=== PATIENT | female | born 1940 | race Caucasian/White ===

== ENCOUNTER → 2018-04-18 05:00 | Outpatient (REF) | payer MEDICARE, OTHER, SELFPAY ==
[2018-04-18 09:06] LABS: Prothrombin Time Fingerstick 19.5 SEC (11.9-14.4)
== END ==
LOC: OLS.ACH 05:00
PROVIDERS: Visit Provider Family Medicine
DX: I82.409 Acute embolism and thrombosis of unspecified deep veins of unspecified lower extremity (principal)
CPT/HCPCS: 36416; 85610

== ENCOUNTER → 2018-05-02 05:00 | Outpatient (REF) | payer MEDICARE, SELFPAY ==
[2018-05-02 08:45] LABS: Prothrombin Time Fingerstick 18.4 SEC (11.9-14.4)
== END ==
LOC: OLS.ACH 05:00
PROVIDERS: Visit Provider Family Medicine
DX: I10 Essential (primary) hypertension (principal)
CPT/HCPCS: 36416; 85610

== ENCOUNTER → 2018-05-09 05:00 | Outpatient (REF) | payer MEDICARE, OTHER, SELFPAY ==
[2018-05-09 08:25] LABS: International Normalized Ratio 1.6; Prothrombin Time (Protime)PT. 19.5 SECONDS (11.7-14.9)
[2018-05-09 08:37] LABS: Thyroid Stim Hormone (TSH) 4.91 uIU/mL (0.358-3.74)
== END ==
LOC: OLS.ACH 05:00
PROVIDERS: Visit Provider Family Medicine
DX: I48.91 Unspecified atrial fibrillation (principal); F20.9 Schizophrenia, unspecified
CPT/HCPCS: 36415; 84443; 85610

== ENCOUNTER → 2018-05-21 04:30 | Outpatient (REF) | payer MEDICARE, SELFPAY | LOC: OLS.ACH 04:30 | PROVIDERS: Visit Provider Family Medicine | DX: I48.91 Unspecified atrial fibrillation (principal) | CPT/HCPCS: 36416; 85610 ==

== ENCOUNTER → 2018-05-28 05:00 | Outpatient (REF) | payer MEDICARE, SELFPAY ==
[2018-05-28 07:10] LABS: Prothrombin Time Fingerstick 31.4 SEC (11.9-14.4)
== END ==
LOC: OLS.ACH 05:00
PROVIDERS: Visit Provider Family Medicine
DX: I48.91 Unspecified atrial fibrillation (principal)
CPT/HCPCS: 36416; 85610

== ENCOUNTER → 2018-06-13 05:00 | Outpatient (REF) | payer MEDICARE, OTHER, SELFPAY ==
[2018-06-13 09:12] LABS: BNP,B-Type NATRIURETIC PEPTIDE 25.1 pg/mL (0-100)
[2018-06-13 09:22] LABS: Anion Gap 4 (5-15); BUN 35 mg/dL (7-18); BUN/Creat Ratio 40.2 RATIO (10-20); Calcium,Total 9.7 mg/dL (8.5-10.1); Chloride 106 mmol/L (98-107); Creatinine, Serum 0.87 mg/dL (0.55-1.02); EST Glomerular Filtration Rate 67 mL/min (>60); Est Glom Filt Rate - Afr Amer 81 mL/min (>60); Glucose 95 mg/dL (74-106); Potassium 3.8 mmol/L (3.5-5.1); Sodium Level 144 mmol/L (136-145); Thyroid Stim Hormone (TSH) 1.62 uIU/mL (0.358-3.74)
== END ==
LOC: OLS.ACH 05:00
PROVIDERS: Visit Provider Family Medicine
DX: I48.91 Unspecified atrial fibrillation (principal); R06.02 Shortness of breath
CPT/HCPCS: 36415; 80048; 83880; 84443

== ENCOUNTER → 2018-06-25 05:00 | Outpatient (REF) | payer MEDICARE, SELFPAY ==
[2018-06-25 10:20] LABS: Prothrombin Time Fingerstick 27.8 SEC (11.9-14.4)
--- OUTSIDE RECORDS SUMMARY | 2018-09-26 15:43 | XMS RPT_ITS ---
:1940 Author Organization OHIP Support Name Relationship Address Phone Osiris Coates Unavailable [address] + [place] [address] R Unavailable Unavailable Unavailable Addy Coateslie Unavailable [address] + [place] [address] R Unavailable Unavailable Unavailable Osiris Coates Unavailable [address] + [place] [address] R Unavailable Unavailable Unavailable Osiris Coates Unavailable [address] + [place] [address] R Unavailable Unavailable Unavailable Osiris Coates Unavailable [address] + [place] [address] R Unavailable Unavailable Unavailable JaxonOsiris Unavailable [address] + [place] [address] R Unavailable Unavailable Unavailable Osiris Coates Unavailable [address] + [place] [address] R Unavailable Unavailable Unavailable Osiris Coates Unavailable [address] + [place] [address] R Unavailable Unavailable Unavailable Osiris Coates Unavailable [address] + [place] [address] R Unavailable Unavailable Unavailable Osiris Coates Unavailable [address] + [place] [address] R Unavailable Unavailable Unavailable Osiris Coates Unavailable [address] + [place] [address] R Unavailable Unavailable Unavailable Osiris Coates Unavailable [address] + [place] [address] R Unavailable Unavailable Unavailable Osiris Coates Unavailable [address] + [place] [address] R Unavailable Unavailable Unavailable Osiris Coates Unavailable [address] + [place] [address] R Unavailable Unavailable Unavailable Osiris Coates Unavailable [address] + [place] [address] R Unavailable Unavailable Unavailable Osiris Coates Unavailable [address] + [place] [address] R Unavailable Unavailable Unavailable OSIRIS COATES Unavailable [address] + [place] [address] OSIRIS COATES Unavailable [address] + [place] [id number] OSIRIS COATES Unavailable [address] + [place] [id number] OSIRIS COATES Unavailable [address] + [place] [address] Care Team Providers Name Role Phone GERMANIA FREEMAN, SARAHY Sanchez JR. Primary Care Unavailable JT SALES MD Admitting Unavailable NERIS LANE MD Consulting Unavailable YAO FREEMAN, ANABELLA Attending Unavailable NORMA GONCALVES MD Consulting Unavailable NAZIA CHIN MD Consulting Unavailable BOBBY MIKE, DR. MENCHACA Consulting Unavailable CLARENCE FORBES MD Consulting Unavailable OCTAVIANO BENJAMIN MD Consulting Unavailable GERMANIA FREEMAN, SARAHY Sanchez JR. Primary Care Unavailable KIKO MIKE MD. PIERRE Sanchez Admitting Unavailable KIKO MIKE MD. PIERRE Sanchez Consulting Unavailable KIKO MIKE MD. PIERRE Sanchez Attending Unavailable NORMA GONCALVES MD Consulting Unavailable Petrilla, Saji Attending Unavailable Petrilla, Saji Attending Unavailable Petrilla, Saji Attending Unavailable Petrilla, Saji Attending Unavailable Petrilla, Saji Attending Unavailable Petrilla, Saji Attending Unavailable Petrilla, Saji Attending Unavailable Petrilla, Saji Attending Unavailable Petrilla, Saji Attending Unavailable Petrilla, Saji Attending Unavailable Petrilla, Saji Attending Unavailable [facility] Attending Unavailable Petrilla, Saji Attending Unavailable Petrilla, Saji Attending Unavailable Petrilla, Saji Attending Unavailable Petrilla, Saji Attending Unavailable PROBLEMS PROBLEMS DATE TYPE CONDITION / CODE ATTENDING STATUS SOURCE 08/01/2018 Unknown I48.91 - Petrilla, Active Carla Unspecified atrial [facility] fibrillation / Hospital I48.91(ICD-10) Repository 08/01/2018 Unknown R06.02 - Shortness Leidya, Active Kelley of breath / [facility] R06.02(ICD-10) Hospital Repository 06/01/2018 Unknown F20.9 - Petrilla, Active Carla Schizophrenia, [facility] unspecified / Hospital F20.9(ICD-10) Repository 07/06/2018 Unknown I10 - Essential Petrilla, Active Carla (primary) [facility] hypertension / Hospital I10(ICD-10) Repository 06/25/2018 Unknown I82.409 - Acute Petrilla, Active Carla embolism and [facility] thrombosis of Hospital unspecified deep Repository veins of unspecified lower extremity / I82.409(ICD-10) PROCEDURES PROCEDURES No Procedure Records FoundRESULTS RESULTS PROTIME W/INR Collected: 07/24/2018 Status: F Source: [place] 5:30 AM [facility] REPOSITORY TYPE CODE TESTS RESULT OUT OF REFERENCE UNITS RANGE LAB L9200.1001 11.9-14.4 SEC High PROTIME ISTAT 23.9 Result Comment: Reference Range 11.9 - 14.4 LAB L9200.2000 Normal INR ISTAT 2.10 Result Comment: Critical Value > 3.5 Performed By: #### L9200.0000 #### [facility] Point of Care [address] [place] [address] PROTIME W/INR Collected: 06/25/2018 Status: F Source: [place] 6:32 AM [facility] REPOSITORY TYPE CODE TESTS RESULT OUT OF REFERENCE UNITS RANGE LAB L9200.1001 11.9-14.4 SEC High PROTIME ISTAT 27.8 Result Comment: Reference Range 11.9 - 14.4 LAB L9200.2000 Normal INR ISTAT 2.40 Result Comment: Critical Value > 3.5 Performed By: #### L9200.0000 #### [facility] Point of Care [address] [place] [address] BNP,B-TYPE NATRIURETIC Collected: 06/13/2018 Status: F Source: [place] 6:20 AM [facility] REPOSITORY Order Comment: 113 TYPE CODE TESTS RESULT OUT OF RANGE REFERENCE UNITS LAB L503.6620 0-100 pg/mL Normal B-TYPE 25.1 MCKENNA PEP Performed By: #### L503.6620 #### [facility] [address] [place], [address] BASIC METABOLIC Collected: 06/13/2018 Status: F Source: [place] PROFILE (BMP) 6:20 AM [facility] REPOSITORY Order Comment: 113 TYPE CODE TESTS RESULT OUT OF RANGE REFERENCE UNITS LAB L501.0100 74-106 mg/dL Normal GLU 95 Result Comment: Please note revised GLUCOSE reference range effective 2017. LAB L501.1000 7-18 mg/dL High BUN 35 LAB L501.1100 0.55-1.02 mg/dL Normal CREAT,SERUM 0.87 Result Comment: The validity of the calculated GFR AND GFRAA in patients over 70 years has not been determined. Clinical correlation is essential. LAB L501.1110 >60 mL/min Normal EST GFR 67 Result Comment: Non- GFR Calc LAB L501.1115 >60 mL/min Normal EST GFR - AA 81 Result Comment: GFR Calc LAB L501.1300 10-20 RATIO High BUN/CRE 40.2 LAB L501.2200 8.5-10.1 mg/dL CA Normal 9.7 LAB L501.5300 136-145 mmol/L NA Normal 144 LAB L501.5600 3.5-5.1 mmol/L K Normal 3.8 LAB L501.5900 98-107 mmol/L CL Normal 106 LAB L501.6100 21.0-32.0 mmol/L High CO2 34.0 LAB L501.6200 5-15 Low GAP 4 Performed By: #### L500.2500, L501.9520 #### [facility] [address] [place], [address] THYROID STIM HORMONE Collected: 06/13/2018 Status: F Source: [place] (TSH) 6:20 AM [facility] REPOSITORY Order Comment: 113 TYPE CODE TESTS RESULT OUT OF RANGE REFERENCE UNITS LAB L501.9520 0.358-3.74 uIU/mL Normal TSH 1.62 Performed By: #### L500.2500, L501.9520 #### [facility] [address] [place], [address] PROTIME W/INR Collected: 05/28/2018 Status: F Source: [place] 5:55 AM [facility] REPOSITORY TYPE CODE TESTS RESULT OUT OF REFERENCE UNITS RANGE LAB L9200.1001 11.9-14.4 SEC High PROTIME ISTAT 31.4 Result Comment: Reference Range 11.9 - 14.4 LAB L9200.2000 Normal INR ISTAT 2.70 Result Comment: Critical Value > 3.5 Performed By: #### L9200.0000 #### [facility] Point of Care [address] [place] [address] PROTIME W/INR Collected: 05/21/2018 Status: F Source: [place] 4:54 AM [facility] REPOSITORY TYPE CODE TESTS RESULT OUT OF REFERENCE UNITS RANGE LAB L9200.1001 11.9-14.4 SEC High PROTIME ISTAT 33.0 Result Comment: Reference Range 11.9 - 14.4 LAB L9200.2000 Normal INR ISTAT 2.90 Result Comment: Critical Value > 3.5 Performed By: #### L9200.0000 #### [facility] Point of Care [address] [place] [address] PROTHROMBIN TIME W/INR Collected: 05/09/2018 Status: F Source: [place] 5:40 AM [facility] REPOSITORY Order Comment: ROOM 113 TYPE CODE TESTS RESULT OUT OF RANGE REFERENCE UNITS LAB L300.4150 11.7-14.9 SECONDS High PROTIME 19.5 LAB L300.4200 Normal INR 1.6 Performed By: #### L300.3900 #### [facility] [address] [place], [address] THYROID STIM HORMONE Collected: 05/09/2018 Status: F Source: [place] (TSH) 5:40 AM [facility] REPOSITORY Order Comment: ROOM 113 TYPE CODE TESTS RESULT OUT OF RANGE REFERENCE UNITS LAB L501.9520 0.358-3.74 uIU/mL High TSH 4.91 Performed By: #### L501.9520 #### [facility] [address] [place], [address] PROTIME W/INR Collected: 05/02/2018 Status: F Source: [place] 5:49 AM [facility] REPOSITORY TYPE CODE TESTS RESULT OUT OF REFERENCE UNITS RANGE LAB L9200.1001 11.9-14.4 SEC High PROTIME ISTAT 18.4 Result Comment: Reference Range 11.9 - 14.4 LAB L9200.2000 Normal INR ISTAT 1.60 Result Comment: Critical Value > 3.5 Performed By: #### L9200.0000 #### [facility] Point of Care [address] [place] [address] PROTIME W/INR Collected: 04/18/2018 Status: F Source: [place] 6:35 AM [facility] REPOSITORY TYPE CODE TESTS RESULT OUT OF REFERENCE UNITS RANGE LAB L9200.1001 11.9-14.4 SEC High PROTIME ISTAT 19.5 Result Comment: Reference Range 11.9 - 14.4 LAB L9200.2000 Normal INR ISTAT 1.70 Result Comment: Critical Value > 3.5 Performed By: #### L9200.0000 #### [facility] Point of Care [address] [place] [address] BASIC METABOLIC Collected: 04/09/2018 Status: F Source: [place] PROFILE (BMP) 4:45 AM [facility] REPOSITORY Order Comment: [id number] Comments: TSH TYPE CODE TESTS RESULT OUT OF RANGE REFERENCE UNITS LAB L501.0100 74-106 mg/dL Normal GLU 90 Result Comment: Please note revised GLUCOSE reference range effective 2017. LAB L501.1000 7-18 mg/dL High BUN 28 LAB L501.1100 0.55-1.02 mg/dL Normal CREAT,SERUM 0.88 Result Comment: The validity of the calculated GFR AND GFRAA in patients over 70 years has not been determined. Clinical correlation is essential. LAB L501.1110 >60 mL/min Normal EST GFR 67 Result Comment: Non- GFR Calc LAB L501.1115 >60 mL/min Normal EST GFR - AA 81 Result Comment: GFR Calc LAB L501.1300 10-20 RATIO High BUN/CRE 31.9 LAB L501.2200 8.5-10.1 mg/dL CA Normal 9.5 LAB L501.5300 136-145 mmol/L High NA 147 LAB L501.5600 3.5-5.1 mmol/L K Normal 3.9 LAB L501.5900 98-107 mmol/L CL Normal 107 LAB L501.6100 21.0-32.0 mmol/L Normal CO2 31.0 LAB L501.6200 5-15 Normal GAP 9 Performed By: #### L500.2500, L500.3400, L500.4100, L501.9310 #### [facility] [address] [place], [address] LIVER PROFILE Collected: 04/09/2018 Status: F Source: [place] 4:45 AM [facility] REPOSITORY Order Comment: [id number] Comments: TSH TYPE CODE TESTS RESULT OUT OF RANGE REFERENCE UNITS LAB L501.1500 6.4-8.2 g/dL Low T PROT 5.7 LAB L501.1800 3.2-5.0 g/dL Low ALB 2.3 LAB L501.1950 2.2-4.2 g/dL Normal GLOB 3.4 LAB L501.4100 15-37 U/L Normal AST 15 LAB L501.4305 45-117 U/L Normal ALK P 80 LAB L501.4405 13-56 U/L Normal ALT 29 LAB L501.4600 0.20-1.00 mg/dL Normal T BILI 0.30 LAB L501.4700 0.00-0.30 mg/dL Normal D BILI 0.07 Performed By: #### L500.2500, L500.3400, L500.4100, L501.9310 #### [facility] [address] [facility] [place], [place], [address] LIPID PROFILE Collected: 04/09/2018 Status: F Source: [place] 4:45 AM [facility] REPOSITORY Order Comment: [id number] Comments: TSH TYPE CODE TESTS RESULT OUT OF RANGE REFERENCE UNITS LAB L501.4900 200 mg/dL Normal CHOL 187 Result Comment: <200 mg/dL Desirable 200-240 mg/dL Borderline >240 mg/dL High Risk LAB L501.5000 mg/dL Normal TRIG 186 Result Comment: The drugs N-Acetylcysteine and Metamizole may falsely depress this assay. Serum Triglycerides Reference Interval Normal <150 mg/dL Borderline high 150 - 199 mg/dL High 200 - 499 mg/dL Very High > or = 500 mg/dL LAB L501.6400 mg/dL Low HDL 32 Result Comment: The drugs N-Acetylcysteine and Metamizole may falsely depress this assay. Reference Range HDL <40 mg/dL Low HDL Cholesterol HDL >or= 60 mg/dL High HDL Cholesterol LAB L501.6500 0-130 mg/dL Normal LDL 118 LAB L501.6600 5-40 mg/dL Normal VLDL 37 Performed By: #### L500.2500, L500.3400, L500.4100, L501.9310 #### [facility] [address] [facility] [place], [place], [address] T4 TOTAL, THYROXIN Collected: 04/09/2018 Status: F Source: [place] 4:45 AM [facility] REPOSITORY Order Comment: [id number] Comments: TSH TYPE CODE TESTS RESULT OUT OF RANGE REFERENCE UNITS LAB L501.9310 4.8-13.9 ug/dL T4 Normal THYROXIN 9.0 Performed By: #### L500.2500, L500.3400, L500.4100, L501.9310 #### [facility] [address] [facility] [place], [place], [address] CBC W/DIFF, AUTOMATED Collected: 04/09/2018 Status: F Source: [place] 4:45 AM [facility] REPOSITORY Order Comment: [id number] TYPE CODE TESTS RESULT OUT OF RANGE REFERENCE UNITS LAB L100.1000 4.4-11.0 K/mm3 Normal WBC 6.8 LAB L100.1200 4.2-5.4 M/mm3 Normal RBC 4.41 LAB L100.1300 12.0-15.0 g/dl Normal HGB 12.3 LAB L100.1400 37-47 % Normal HCT 40.0 LAB L100.1500 81-99 fL Normal MCV 90.7 LAB L100.1600 27.0-32.0 pg Normal MCH 27.9 LAB L100.1700 32-36 g/gl Low MCHC 30.8 LAB L100.1810 11.6-14.6 % High RDW CV 15.6 LAB L100.1820 35.1-43.9 fl High RDW SD 51.1 LAB L100.1900 150-450 K/mm3 Normal PLT 246 LAB L100.2000 6.2-12.0 fl Normal MPV 11.2 LAB L100.2100 47-70 % Normal NEUT% 56.0 LAB L100.2200 19-41 % Normal LY% 28.5 LAB L100.2300 0-10 % Normal MONO% 9.4 LAB L100.2400 0-5 % High EO% 5.3 LAB L100.2500 0-1 % Normal BASO% 0.7 LAB L100.2550 0.0-0.9 % Normal IM GRAN % 0.100 Result Comment: IG% - Immature Granulocytes (promyelocytes, myelocytes and metamyelocytes) > 1% indicates that a LEFT SHIFT is Present. LAB L100.2620 2.0-7.7 X10 3/uL Normal Absolute Neut 3.8 LAB L100.2720 0.83-4.51 X10 3/ul Normal Absolute Lymph 1.93 Performed By: #### L100.0100 #### [facility] [address] [facility] [place], [address] HEMOGLOBIN A1C Collected: 04/09/2018 Status: F Source: [place] 4:45 AM [facility] REPOSITORY Order Comment: [id number] TYPE CODE TESTS RESULT OUT OF RANGE REFERENCE UNITS LAB L501.9985 4.2-6.3 % Normal HGB A1C 5.6 Performed By: #### L501.9985 #### [facility] [address] [facility] [place], [address] PROTIME W/INR Collected: 04/04/2018 Status: F Source: [place] 6:15 AM [facility] REPOSITORY TYPE CODE TESTS RESULT OUT OF REFERENCE UNITS RANGE LAB L9200.1001 11.9-14.4 SEC High PROTIME ISTAT 24.4 Result Comment: Reference Range 11.9 - 14.4 LAB L9200.2000 Normal INR ISTAT 2.10 Result Comment: Critical Value > 3.5 Performed By: #### L9200.0000 #### [facility] Point of Care [address] [place], [place] [address] CBC W/DIFF, AUTOMATED Collected: 04/03/2018 Status: F Source: [place] 12:45 PM [facility] REPOSITORY Order Comment: ROOM 113 TYPE CODE TESTS RESULT OUT OF RANGE REFERENCE UNITS LAB L100.1000 4.4-11.0 K/mm3 Normal WBC 8.7 LAB L100.1200 4.2-5.4 M/mm3 Normal RBC 4.47 LAB L100.1300 12.0-15.0 g/dl Normal HGB 12.4 LAB L100.1400 37-47 % Normal HCT 40.1 LAB L100.1500 81-99 fL Normal MCV 89.7 LAB L100.1600 27.0-32.0 pg Normal MCH 27.7 LAB L100.1700 32-36 g/gl Low MCHC 30.9 LAB L100.1810 11.6-14.6 % High RDW CV 16.0 LAB L100.1820 35.1-43.9 fl High RDW SD 52.9 LAB L100.1900 150-450 K/mm3 Normal PLT 226 LAB L100.2000 6.2-12.0 fl Normal MPV 10.9 LAB L100.2100 47-70 % High NEUT% 75.1 LAB L100.2200 19-41 % Low LY% 14.4 LAB L100.2300 0-10 % Normal MONO% 7.9 LAB L100.2400 0-5 % Normal EO% 2.2 LAB L100.2500 0-1 % Normal BASO% 0.3 LAB L100.2550 0.0-0.9 % Normal IM GRAN % 0.100 Result Comment: IG% - Immature Granulocytes (promyelocytes, myelocytes and metamyelocytes) > 1% indicates that a LEFT SHIFT is Present. LAB L100.2620 2.0-7.7 X10 3/uL Normal Absolute Neut 6.5 LAB L100.2720 0.83-4.51 X10 3/ul Normal Absolute Lymph 1.25 Performed By: #### L100.0100 #### [facility] [address] [place], [address] COMPREHENSIVE METABOLIC Collected: 04/03/2018 Status: F Source: [place] [facility] 12:45 PM [facility] REPOSITORY Order Comment: ROOM 113 TYPE CODE TESTS RESULT OUT OF RANGE REFERENCE UNITS LAB L501.0100 74-106 mg/dL High GLU 153 Result Comment: Fasting Glucose result greater than or equal to 126 mg/dL suggests DIABETES MELLITUS per A.D.A. criteria. Please note revised GLUCOSE reference range effective 2017. LAB L501.1000 7-18 mg/dL Normal BUN 18 LAB L501.1100 0.55-1.02 mg/dL Normal CREAT,SERUM 0.99 Result Comment: The validity of the calculated GFR AND GFRAA in patients over 70 years has not been determined. Clinical correlation is essential. LAB L501.1110 >60 mL/min Low EST GFR 58 Result Comment: Non- GFR Calc LAB L501.1115 >60 mL/min Normal EST GFR - AA 70 Result Comment: GFR Calc LAB L501.1300 10-20 RATIO Normal BUN/CRE 18.1 LAB L501.1500 6.4-8.2 g/dL Low T PROT 6.1 LAB L501.1800 3.2-5.0 g/dL Low ALB 2.4 LAB L501.1950 2.2-4.2 g/dL Normal GLOB 3.7 LAB L501.2000 0.9-2.4 RATIO Low A/G 0.6 LAB L501.2200 8.5-10.1 mg/dL CA Normal 9.3 LAB L501.4100 15-37 U/L Normal AST 17 LAB L501.4305 45-117 U/L Normal ALK P 74 LAB L501.4405 13-56 U/L Normal ALT 32 LAB L501.4600 0.20-1.00 mg/dL T Normal BILI 0.30 LAB L501.5300 136-145 mmol/L NA Normal 143 LAB L501.5600 3.5-5.1 mmol/L K Normal 3.8 LAB L501.5900 98-107 mmol/L CL Normal 106 LAB L501.6100 21.0-32.0 mmol/L Normal CO2 31.0 LAB L501.6200 5-15 Normal GAP 6 Performed By: #### L500.4050 #### [facility] [address] [place], [place], [address] POTASSIUM Collected: 03/23/2018 Status: F Source: [place] 5:20 AM [facility] REPOSITORY Order Comment: ROOM 113 TYPE CODE TESTS RESULT OUT OF RANGE REFERENCE UNITS LAB L501.5600 3.5-5.1 mmol/L Normal K 3.9 Performed By: #### L501.5600 #### [facility] [address] [place], [address] PROTIME W/INR Collected: 03/21/2018 Status: F Source: [place] 6:07 AM [facility] REPOSITORY TYPE CODE TESTS RESULT OUT OF REFERENCE UNITS RANGE LAB L9200.1001 11.9-14.4 SEC High PROTIME ISTAT 31.5 Result Comment: Reference Range 11.9 - 14.4 LAB L9200.2000 Normal INR ISTAT 2.80 Result Comment: Critical Value > 3.5 Performed By: #### L9200.0000 #### [facility] Point of Care [address] [place], [place] [address] PROTIME W/INR Collected: 03/14/2018 Status: F Source: [place] 6:14 AM [facility] REPOSITORY TYPE CODE TESTS RESULT OUT OF REFERENCE UNITS RANGE LAB L9200.1001 11.9-14.4 SEC High PROTIME ISTAT 33.7 Result Comment: Reference Range 11.9 - 14.4 LAB L9200.2000 Normal INR ISTAT 3.00 Result Comment: Critical Value > 3.5 Performed By: #### L9200.0000 #### [facility] Point of Care [address] [place], [place] [address] CBC W/DIFF, AUTOMATED Collected: 03/09/2018 Status: F Source: [place] 5:25 AM [facility] REPOSITORY Order Comment: ROOM 312 TYPE CODE TESTS RESULT OUT OF RANGE REFERENCE UNITS LAB L100.1000 4.4-11.0 K/mm3 Normal WBC 7.1 LAB L100.1200 4.2-5.4 M/mm3 Normal RBC 4.51 LAB L100.1300 12.0-15.0 g/dl Normal HGB 12.3 LAB L100.1400 37-47 % Normal HCT 41.3 LAB L100.1500 81-99 fL Normal MCV 91.6 LAB L100.1600 27.0-32.0 pg Normal MCH 27.3 LAB L100.1700 32-36 g/gl Low MCHC 29.8 LAB L100.1810 11.6-14.6 % High RDW CV 16.7 LAB L100.1820 35.1-43.9 fl High RDW SD 56.2 LAB L100.1900 150-450 K/mm3 Normal PLT 316 LAB L100.2000 6.2-12.0 fl Normal MPV 11.0 LAB L100.2100 47-70 % Normal NEUT% 64.3 LAB L100.2200 19-41 % Normal LY% 21.2 LAB L100.2300 0-10 % Normal MONO% 9.8 LAB L100.2400 0-5 % Normal EO% 3.9 LAB L100.2500 0-1 % Normal BASO% 0.7 LAB L100.2550 0.0-0.9 % Normal IM GRAN % 0.100 Result Comment: IG% - Immature Granulocytes (promyelocytes, myelocytes and metamyelocytes) > 1% indicates that a LEFT SHIFT is Present. LAB L100.2620 2.0-7.7 X10 3/uL Normal Absolute Neut 4.6 LAB L100.2720 0.83-4.51 X10 3/ul Normal Absolute Lymph 1.51 Performed By: #### L100.0100 #### [facility] [address] [place], [address] COMPREHENSIVE METABOLIC Collected: 03/09/2018 Status: F Source: [facility] 5:25 AM [facility] REPOSITORY Order Comment: ROOM 312 TYPE CODE TESTS RESULT OUT OF RANGE REFERENCE UNITS LAB L501.0100 74-106 mg/dL High GLU 110 Result Comment: Fasting Glucose result from 100 to 125 mg/dL suggests IMPAIRED HOMEOSTASIS per A.D.A. criteria. Please note revised GLUCOSE reference range effective 2017. LAB L501.1000 7-18 mg/dL Normal BUN 15 LAB L501.1100 0.55-1.02 mg/dL Normal CREAT,SERUM 0.98 Result Comment: The validity of the calculated GFR AND GFRAA in patients over 70 years has not been determined. Clinical correlation is essential. LAB L501.1110 >60 mL/min Low EST GFR 59 Result Comment: Non- GFR Calc LAB L501.1115 >60 mL/min Normal EST GFR - AA 72 Result Comment: GFR Calc LAB L501.1300 10-20 RATIO Normal BUN/CRE 15.4 LAB L501.1500 6.4-8.2 g/dL Low T PROT 6.1 LAB L501.1800 3.2-5.0 g/dL Low ALB 2.5 LAB L501.1950 2.2-4.2 g/dL Normal GLOB 3.6 LAB L501.2000 0.9-2.4 RATIO Low A/G 0.7 LAB L501.2200 8.5-10.1 mg/dL CA Normal 9.9 LAB L501.4100 15-37 U/L Normal AST 24 LAB L501.4305 45-117 U/L Normal ALK P 109 LAB L501.4405 13-56 U/L Normal ALT 37 LAB L501.4600 0.20-1.00 mg/dL T Normal BILI 0.40 LAB L501.5300 136-145 mmol/L High NA 147 LAB L501.5600 3.5-5.1 mmol/L Low K 3.1 LAB L501.5900 98-107 mmol/L CL Normal 103 LAB L501.6100 21.0-32.0 mmol/L High CO2 38.0 LAB L501.6200 5-15 Normal GAP 6 Performed By: #### L500.4050 #### [facility] [address] [place] [address], [address] PROTIME W/INR Collected: 03/08/2018 Status: F Source: [place] 5:43 AM [facility] REPOSITORY TYPE CODE TESTS RESULT OUT OF REFERENCE UNITS RANGE LAB L9200.1001 11.9-14.4 SEC High PROTIME ISTAT 36.7 Result Comment: Reference Range 11.9 - 14.4 LAB L9200.2000 Normal INR ISTAT 3.20 Result Comment: Critical Value > 3.5 Performed By: #### L9200.0000 #### [facility] Point of Care [address] [place], [place] [address] PRO Collected: 03/07/2018 Status: F Source: [place] 5:05 AM [facility] REPOSITORY Order Comment: ordered secondary to warfarin order TYPE CODE TESTS RESULT OUT OF REFERENCE UNITS RANGE LAB PT(LOINC) 9.3-14.6 seconds Protime High 35.5 LAB INR(LOINC) 0.9-1.2 ratio PT High International 3.6 Ratio Result Comment: Standard Dose 2.0 - 3.0 High Dose 2.5 - 3.5 The recommended therapeutic range for oral anticoagulant therapy is: LOW RISK: Prophylaxis of venous thrombosis INR: 2.0 - 3.0 Treatment of pulmonary embolism 2.0 - 3.0 Prevention of systemic embolism 2.0 - 3.0 HIGH RISK: Mechanical prosthetic valves 2.5 - 3.5 Performed By: #### PRO #### [address] [address] PRO Collected: 03/06/2018 Status: F Source: [place] 5:11 AM [facility] REPOSITORY Order Comment: ordered secondary to warfarin order TYPE CODE TESTS RESULT OUT OF REFERENCE UNITS RANGE LAB PT(LOINC) 9.3-14.6 seconds Protime High 29.7 LAB INR(LOINC) 0.9-1.2 ratio PT High International 3.0 Ratio Result Comment: Standard Dose 2.0 - 3.0 High Dose 2.5 - 3.5 The recommended therapeutic range for oral anticoagulant therapy is: LOW RISK: Prophylaxis of venous thrombosis INR: 2.0 - 3.0 Treatment of pulmonary embolism 2.0 - 3.0 Prevention of systemic embolism 2.0 - 3.0 HIGH RISK: Mechanical prosthetic valves 2.5 - 3.5 Performed By: #### PRO #### [address] [address] CBC Collected: 03/05/2018 Status: F Source: [place] 5:25 AM [facility] REPOSITORY TYPE CODE TESTS RESULT OUT OF REFERENCE UNITS RANGE LAB WBC(LOINC) 4.60-10.80 10 3/mcL WBC 9.20 LAB RBCCT(LOINC 4.20-5.40 10 6/mcL ) Low RBC 4.06 LAB HGB(LOINC) 12.0-16.0 G/dL Low Hgb 11.6 LAB HCT(LOINC) 37.0-47.0 % Low Hct 34.3 LAB MCV(LOINC) 80.0-94.0 fL MCV 84.5 LAB MCH(LOINC) 27.0-31.2 pg MCH 28.5 LAB MCHC(LOINC) 33.0-37.0 G/dL MCHC 33.8 LAB RDW(LOINC) 11.5-14.5 % High RDW 17.1 LAB PLT(LOINC) 130-400 10 3/mcL Platelet 295 LAB MPV(LOINC) 7.4-10.4 fL MPV 8.8 Performed By: #### CBC, ADIFF, ANEU #### [address] [address] #### GFR, CMP #### [address] [address] .AUTO DIFF Collected: 03/05/2018 Status: F Source: [facility] 5:25 AM [facility] REPOSITORY TYPE CODE TESTS RESULT OUT OF REFERENCE UNITS RANGE LAB DELANEY(LOINC) 37.0-80.0 % Neutrophil % 65.2 LAB LYM(LOINC) 10.0-50.0 % Lymphocyte % 23.6 LAB MON(LOINC) 1.7-13.0 % Monocyte % 7.6 LAB EO(LOINC) 0.0-7.0 % Eosinophil % 3.0 LAB BAS(LOINC) 0.0-2.5 % Basophil % 0.6 LAB ABLYM(LOIN 0.77-3.85 10 3/mcL C) Lymphocyte, 2.20 Absolute LAB COURTNEY(LOINC 0.15-1.00 10 3/mcL ) Monocyte, 0.70 Absolute LAB AEOS(LOINC 0.00-0.40 10 3/mcL ) Eosinophil, 0.30 Absolute LAB ABAS(LOINC 0.00-0.19 10 3/mcL ) Basophil, 0.10 Absolute Performed By: #### CBC, ADIFF, ANEU #### [address] [address] #### GFR, CMP #### [address] [address] .NEUABS Collected: 03/05/2018 Status: F Source: [facility] 5:25 AM [facility] REPOSITORY TYPE CODE TESTS RESULT OUT OF REFERENCE UNITS RANGE LAB ANEU(LOINC) 2.85-6.16 10 3/mcL Neutrophil, 6.00 Absolute Performed By: #### CBC, ADIFF, ANEU #### [id number] [place], [place] [address] #### GFR, CMP #### [address] [address] .GFR Collected: 03/05/2018 Status: F Source: [facility] 5:25 AM [facility]POS[facility] TYPE CODE TESTS RESULT OUT OF REFERENCE UNITS RANGE LAB GFRAA(LOINC ml/min/1.73 ) sqm GFR 64 Turkish Result Comment: GFR Population mean for , Non- Americans Ages 20-29 = 116 mL/min/1.73 sq.m. Ages 30-39 = 107 mL/min/1.73 sq.m. Ages 40-49 = 99 mL/min/1.73 sq.m. Ages 50-59 = 93 mL/min/1.73 sq.m. Ages 60-69 = 85 mL/min/1.73 sq.m. Ages 70+ = 75 mL/min/1.73 sq.m. Chronic Kidney Disease: Less than 60 mL/min/1.73 square meters End Stage Renal Disease: Less than 15 mL/min/1.73 square meters LAB GFRNO(LOINC) ml/min/1.73sqm GFR Non- 53 Result Comment: GFR Population mean for , Non- Americans Ages 20-29 = 116 mL/min/1.73 sq.m. Ages 30-39 = 107 mL/min/1.73 sq.m. Ages 40-49 = 99 mL/min/1.73 sq.m. Ages 50-59 = 93 mL/min/1.73 sq.m. Ages 60-69 = 85 mL/min/1.73 sq.m. Ages 70+ = 75 mL/min/1.73 sq.m. Chronic Kidney Disease: Less than 60 mL/min/1.73 square meters End Stage Renal Disease: Less than 15 mL/min/1.73 square meters Performed By: #### CBC, ADIFF, ANEU #### [id number] [place], [place] [address] #### GFR, CMP #### [address] [address] CMP Collected: 03/05/2018 Status: F Source: [facility] 5:25 AM [facility] REPOSITORY TYPE CODE TESTS RESULT OUT OF REFERENCE UNITS RANGE LAB GLU(LOINC) 83-110 mg/dL Glucose Level 105 LAB NA(LOINC) 136-145 mmol/L Sodium High Level 147 LAB K(LOINC) 3.5-5.1 mmol/L Potassium Level 3.9 LAB CL(LOINC) 98-107 mmol/L Chloride High 108 LAB CO2(LOINC) 23-31 mmol/L CO2 High 36 LAB EBAL(LOINC mEq/L ) Electrolyte Balance 3.0 LAB BUN(LOINC) 7-18 mg/dL BUN High 25 LAB CRE(LOINC) 0.55-1.02 mg/dL Creatinine Lvl (s) 1.02 LAB BC(LOINC) 7-27 ratio BUN/Creatinine 25 Ratio LAB CA(LOINC) 8.4-10.2 mg/dL Calcium Lvl 9.7 LAB PROT(LOINC 6.4-8.2 G/dL ) Low Total Protein 5.1 LAB ALB(LOINC) 3.4-4.8 G/dL Low Albumin Level 2.2 LAB GLB(LOINC) G/dL Globulin 2.9 LAB AG(LOINC) 1.1-2.5 ratio Low A/G Ratio 0.8 LAB BILT(LOINC 0.2-1.0 mg/dL ) Bili Total 0.2 LAB AP(LOINC) 40-135 U/L Alk Phos 91 LAB AST(LOINC) 10-40 U/L AST/SGOT 19 LAB ALT(LOINC) 10-35 U/L ALT/SGPT High 42 Performed By: #### CBC, ADIFF, ANEU #### [id number] [place], [place] [address] #### GFR, CMP #### [address] [address] PRO Collected: 03/05/2018 Status: F Source: [facility] 5:25 AM [facility] REPOSITORY Order Comment: ordered secondary to warfarin order TYPE CODE TESTS RESULT OUT OF REFERENCE UNITS RANGE LAB PT(LOINC) 9.3-14.6 seconds Protime High 31.0 LAB INR(LOINC) 0.9-1.2 ratio PT High International 3.1 Ratio Result Comment: Standard Dose 2.0 - 3.0 High Dose 2.5 - 3.5 The recommended therapeutic range for oral anticoagulant therapy is: LOW RISK: Prophylaxis of venous thrombosis INR: 2.0 - 3.0 Treatment of pulmonary embolism 2.0 - 3.0 Prevention of systemic embolism 2.0 - 3.0 HIGH RISK: Mechanical prosthetic valves 2.5 - 3.5 Performed By: #### PRO #### [address] [address] PRO Collected: 03/04/2018 Status: F Source: [facility] 6:26 AM [facility] REPOSITORY Order Comment: ordered secondary to warfarin order TYPE CODE TESTS RESULT OUT OF REFERENCE UNITS RANGE LAB PT(LOINC) 9.3-14.6 seconds Protime High 25.9 LAB INR(LOINC) 0.9-1.2 ratio PT High International 2.6 Ratio Result Comment: Standard Dose 2.0 - 3.0 High Dose 2.5 - 3.5 The recommended therapeutic range for oral anticoagulant therapy is: LOW RISK: Prophylaxis of venous thrombosis INR: 2.0 - 3.0 Treatment of pulmonary embolism 2.0 - 3.0 Prevention of systemic embolism 2.0 - 3.0 HIGH RISK: Mechanical prosthetic valves 2.5 - 3.5 Performed By: #### PRO #### [address] [address] PRO Collected: 03/03/2018 Status: F Source: [facility] 6:11 AM [facility] REPOSITORY Order Comment: ordered secondary to warfarin order TYPE CODE TESTS RESULT OUT OF REFERENCE UNITS RANGE LAB PT(LOINC) 9.3-14.6 seconds Protime High 26.3 LAB INR(LOINC) 0.9-1.2 ratio PT High International 2.6 Ratio Result Comment: Standard Dose 2.0 - 3.0 High Dose 2.5 - 3.5 The recommended therapeutic range for oral anticoagulant therapy is: LOW RISK: Prophylaxis of venous thrombosis INR: 2.0 - 3.0 Treatment of pulmonary embolism 2.0 - 3.0 Prevention of systemic embolism 2.0 - 3.0 HIGH RISK: Mechanical prosthetic valves 2.5 - 3.5 Performed By: #### PRO #### [address] [address] PRO Collected: 03/02/2018 Status: F Source: [facility] 5:05 AM [facility] REPOSITORY Order Comment: ordered secondary to warfarin order TYPE CODE TESTS RESULT OUT OF REFERENCE UNITS RANGE LAB PT(LOINC) 9.3-14.6 seconds Protime High 23.5 LAB INR(LOINC) 0.9-1.2 ratio PT High International 2.3 Ratio Result Comment: Standard Dose 2.0 - 3.0 High Dose 2.5 - 3.5 The recommended therapeutic range for oral anticoagulant therapy is: LOW RISK: Prophylaxis of venous thrombosis INR: 2.0 - 3.0 Treatment of pulmonary embolism 2.0 - 3.0 Prevention of systemic embolism 2.0 - 3.0 HIGH RISK: Mechanical prosthetic valves 2.5 - 3.5 Performed By: #### PRO #### [address] [address] PRO Collected: 03/01/2018 Status: F Source: [facility] 5:50 AM [facility] REPOSITORY Order Comment: ordered secondary to warfarin order TYPE CODE TESTS RESULT OUT OF REFERENCE UNITS RANGE LAB PT(LOINC) 9.3-14.6 seconds Protime High 23.0 LAB INR(LOINC) 0.9-1.2 ratio PT High International 2.3 Ratio Result Comment: Standard Dose 2.0 - 3.0 High Dose 2.5 - 3.5 The recommended therapeutic range for oral anticoagulant therapy is: LOW RISK: Prophylaxis of venous thrombosis INR: 2.0 - 3.0 Treatment of pulmonary embolism 2.0 - 3.0 Prevention of systemic embolism 2.0 - 3.0 HIGH RISK: Mechanical prosthetic valves 2.5 - 3.5 Performed By: #### PRO #### [address] [address] PRO Collected: 02/28/2018 Status: F Source: [facility] 5:25 AM [facility] REPOSITORY Order Comment: ordered secondary to warfarin order TYPE CODE TESTS RESULT OUT OF REFERENCE UNITS RANGE LAB PT(LOINC) 9.3-14.6 seconds Protime High 21.7 LAB INR(LOINC) 0.9-1.2 ratio PT High International 2.1 Ratio Result Comment: Standard Dose 2.0 - 3.0 High Dose 2.5 - 3.5 The recommended therapeutic range for oral anticoagulant therapy is: LOW RISK: Prophylaxis of venous thrombosis INR: 2.0 - 3.0 Treatment of pulmonary embolism 2.0 - 3.0 Prevention of systemic embolism 2.0 - 3.0 HIGH RISK: Mechanical prosthetic valves 2.5 - 3.5 Performed By: #### PRO #### [address] [address] PRO Collected: 02/27/2018 Status: F Source: [facility] 5:21 AM [facility] REPOSITORY Order Comment: ordered secondary to warfarin order TYPE CODE TESTS RESULT OUT OF REFERENCE UNITS RANGE LAB PT(LOINC) 9.3-14.6 seconds Protime High 20.0 LAB INR(LOINC) 0.9-1.2 ratio PT High International 2.0 Ratio Result Comment: Standard Dose 2.0 - 3.0 High Dose 2.5 - 3.5 The recommended therapeutic range for oral anticoagulant therapy is: LOW RISK: Prophylaxis of venous thrombosis INR: 2.0 - 3.0 Treatment of pulmonary embolism 2.0 - 3.0 Prevention of systemic embolism 2.0 - 3.0 HIGH RISK: Mechanical prosthetic valves 2.5 - 3.5 Performed By: #### PRO #### [address] [address] PRO Collected: 02/26/2018 Status: F Source: [facility] 5:08 AM [facility] REPOSITORY Order Comment: ordered secondary to warfarin order TYPE CODE TESTS RESULT OUT OF REFERENCE UNITS RANGE LAB PT(LOINC) 9.3-14.6 seconds Protime High 18.6 LAB INR(LOINC) 0.9-1.2 ratio PT High International 1.8 Ratio Result Comment: Standard Dose 2.0 - 3.0 High Dose 2.5 - 3.5 The recommended therapeutic range for oral anticoagulant therapy is: LOW RISK: Prophylaxis of venous thrombosis INR: 2.0 - 3.0 Treatment of pulmonary embolism 2.0 - 3.0 Prevention of systemic embolism 2.0 - 3.0 HIGH RISK: Mechanical prosthetic valves 2.5 - 3.5 Performed By: #### PRO #### [address] [address] PRO Collected: 02/25/2018 Status: F Source: [facility] 5:26 AM [facility] REPOSITORY Order Comment: ordered secondary to warfarin order TYPE CODE TESTS RESULT OUT OF REFERENCE UNITS RANGE LAB PT(LOINC) 9.3-14.6 seconds Protime High 15.9 LAB INR(LOINC) 0.9-1.2 ratio PT High International 1.5 Ratio Result Comment: Standard Dose 2.0 - 3.0 High Dose 2.5 - 3.5 The recommended therapeutic range for oral anticoagulant therapy is: LOW RISK: Prophylaxis of venous thrombosis INR: 2.0 - 3.0 Treatment of pulmonary embolism 2.0 - 3.0 Prevention of systemic embolism 2.0 - 3.0 HIGH RISK: Mechanical prosthetic valves 2.5 - 3.5 Performed By: #### PRO #### [address] [address] PRO Collected: 02/24/2018 Status: F Source: [facility] 6:17 AM [facility] REPOSITORY Order Comment: ordered secondary to warfarin order TYPE CODE TESTS RESULT OUT OF REFERENCE UNITS RANGE LAB PT(LOINC) 9.3-14.6 seconds Protime 14.6 LAB INR(LOINC) 0.9-1.2 ratio PT High International 1.4 Ratio Result Comment: Standard Dose 2.0 - 3.0 High Dose 2.5 - 3.5 The recommended therapeutic range for oral anticoagulant therapy is: LOW RISK: Prophylaxis of venous thrombosis INR: 2.0 - 3.0 Treatment of pulmonary embolism 2.0 - 3.0 Prevention of systemic embolism 2.0 - 3.0 HIGH RISK: Mechanical prosthetic valves 2.5 - 3.5 Performed By: #### PRO #### [address] [address] PRO Collected: 02/23/2018 Status: F Source: [facility] 5:31 AM [facility] REPOSITORY Order Comment: ordered secondary to warfarin order TYPE CODE TESTS RESULT OUT OF REFERENCE UNITS RANGE LAB PT(LOINC) 9.3-14.6 seconds Protime 13.5 LAB INR(LOINC) 0.9-1.2 ratio PT High International 1.3 Ratio Result Comment: Standard Dose 2.0 - 3.0 High Dose 2.5 - 3.5 The recommended therapeutic range for oral anticoagulant therapy is: LOW RISK: Prophylaxis of venous thrombosis INR: 2.0 - 3.0 Treatment of pulmonary embolism 2.0 - 3.0 Prevention of systemic embolism 2.0 - 3.0 HIGH RISK: Mechanical prosthetic valves 2.5 - 3.5 Performed By: #### PRO #### [address] [address] CBC Collected: 02/22/2018 Status: F Source: [facility] 5:14 AM [facility] REPOSITORY TYPE CODE TESTS RESULT OUT OF REFERENCE UNITS RANGE LAB WBC(LOINC) 4.60-10.80 10 3/mcL WBC 8.30 LAB RBCCT(LOINC 4.20-5.40 10 6/mcL ) RBC 4.21 LAB HGB(LOINC) 12.0-16.0 G/dL Low Hgb 11.8 LAB HCT(LOINC) 37.0-47.0 % Low Hct 35.0 LAB MCV(LOINC) 80.0-94.0 fL MCV 83.3 LAB MCH(LOINC) 27.0-31.2 pg MCH 28.0 LAB MCHC(LOINC) 33.0-37.0 G/dL MCHC 33.6 LAB RDW(LOINC) 11.5-14.5 % High RDW 15.8 LAB PLT(LOINC) 130-400 10 3/mcL Platelet 236 LAB MPV(LOINC) 7.4-10.4 fL MPV 8.7 Performed By: #### CBC, ADIFF, ANEU #### [address] [address] #### BMP, GFR #### [place] [address] .AUTO DIFF Collected: 02/22/2018 Status: F Source: [facility] 5:14 AM [facility] REPOSITORY TYPE CODE TESTS RESULT OUT OF REFERENCE UNITS RANGE LAB DELANEY(LOINC) 37.0-80.0 % Neutrophil % 68.6 LAB LYM(LOINC) 10.0-50.0 % Lymphocyte % 17.9 LAB MON(LOINC) 1.7-13.0 % Monocyte % 9.2 LAB EO(LOINC) 0.0-7.0 % Eosinophil % 3.6 LAB BAS(LOINC) 0.0-2.5 % Basophil % 0.7 LAB ABLYM(LOIN 0.77-3.85 10 3/mcL C) Lymphocyte, 1.50 Absolute LAB COURTNEY(LOINC 0.15-1.00 10 3/mcL ) Monocyte, 0.80 Absolute LAB AEOS(LOINC 0.00-0.40 10 3/mcL ) Eosinophil, 0.30 Absolute LAB ABAS(LOINC 0.00-0.19 10 3/mcL ) Basophil, 0.10 Absolute Performed By: #### CBC, ADIFF, ANEU #### [address] [place], [place] [address] #### BMP, GFR #### [address] [address] .NEUABS Collected: 02/22/2018 Status: F Source: [facility] 5:14 AM [facility] REPOSITORY TYPE CODE TESTS RESULT OUT OF REFERENCE UNITS RANGE LAB ANEU(LOINC) 2.85-6.16 10 3/mcL Neutrophil, 5.70 Absolute Performed By: #### CBC, ADIFF, ANEU #### [address] [address] #### BMP, GFR #### [address] [address] BMP Collected: 02/22/2018 Status: F Source: [facility] 5:14 AM [facility] REPOSITORY TYPE CODE TESTS RESULT OUT OF REFERENCE UNITS RANGE LAB GLU(LOINC) 83-110 mg/dL Glucose Level 97 LAB NA(LOINC) 136-145 mmol/L Sodium High Level 146 LAB K(LOINC) 3.5-5.1 mmol/L Potassium Level 4.0 LAB CL(LOINC) 98-107 mmol/L Chloride High 108 LAB CO2(LOINC) 23-31 mmol/L CO2 High 35 LAB EBAL(LOINC mEq/L ) Electrolyte Balance 3.0 LAB BUN(LOINC) 7-18 mg/dL BUN High 24 LAB CRE(LOINC) 0.55-1.02 mg/dL Creatinine Lvl (s) 0.83 LAB BC(LOINC) 7-27 ratio High BUN/Creatinine 29 Ratio LAB CA(LOINC) 8.4-10.2 mg/dL Calcium Lvl 9.3 Performed By: #### CBC, ADIFF, ANEU #### [address] [place], [place] [address] #### BMP, GFR #### [address] [address] .GFR Collected: 02/22/2018 Status: F Source: [place] [address]:14 AM [facility] REPOSITORY TYPE CODE TESTS RESULT OUT OF REFERENCE UNITS RANGE LAB GFRAA(LOINC ml/min/1.73 ) sqm GFR 81 Turkish Result Comment: GFR Population mean for , Non- Americans Ages 20-29 = 116 mL/min/1.73 sq.m. Ages 30-39 = 107 mL/min/1.73 sq.m. Ages 40-49 = 99 mL/min/1.73 sq.m. Ages 50-59 = 93 mL/min/1.73 sq.m. Ages 60-69 = 85 mL/min/1.73 sq.m. Ages 70+ = 75 mL/min/1.73 sq.m. Chronic Kidney Disease: Less than 60 mL/min/1.73 square meters End Stage Renal Disease: Less than 15 mL/min/1.73 square meters LAB GFRNO(LOINC) ml/min/1.73sqm GFR Non- 67 Result Comment: GFR Population mean for , Non- Americans Ages 20-29 = 116 mL/min/1.73 sq.m. Ages 30-39 = 107 mL/min/1.73 sq.m. Ages 40-49 = 99 mL/min/1.73 sq.m. Ages 50-59 = 93 mL/min/1.73 sq.m. Ages 60-69 = 85 mL/min/1.73 sq.m. Ages 70+ = 75 mL/min/1.73 sq.m. Chronic Kidney Disease: Less than 60 mL/min/1.73 square meters End Stage Renal Disease: Less than 15 mL/min/1.73 square meters Performed By: #### CBC, ADIFF, ANEU #### [address] [place], [place] [address] #### BMP, GFR #### [address] [address] PRO Collected: 02/22/2018 Status: F Source: [facility] 5:14 AM [facility] REPOSITORY Order Comment: ordered secondary to warfarin order TYPE CODE TESTS RESULT OUT OF REFERENCE UNITS RANGE LAB PT(LOINC) 9.3-14.6 seconds Protime High 14.9 LAB INR(LOINC) 0.9-1.2 ratio PT High International 1.4 Ratio Result Comment: Standard Dose 2.0 - 3.0 High Dose 2.5 - 3.5 The recommended therapeutic range for oral anticoagulant therapy is: LOW RISK: Prophylaxis of venous thrombosis INR: 2.0 - 3.0 Treatment of pulmonary embolism 2.0 - 3.0 Prevention of systemic embolism 2.0 - 3.0 HIGH RISK: Mechanical prosthetic valves 2.5 - 3.5 Performed By: #### PRO #### [address] [address] UA Collected: 02/21/2018 Status: F Source: [facility] 10:14 [facility] REPOSITORY TYPE CODE TESTS RESULT OUT OF REFERENCE UNITS RANGE LAB SPCUA(LOIN C) UA Specimen Type Catheter LAB CLRUA(LOIN C) UA Color Yellow LAB APPUA(LOIN Clear C) UA Appear Clear LAB SGUA(LOINC ) UA Spec Grav 1.015 LAB GLUA(LOINC Negative mg/dL ) UA Glucose Negative LAB BILUA(LOIN Negative C) UA Bili Negative LAB KETUA(LOIN Negative mg/dL C) UA Ketones Negative LAB BLDUA(LOIN Negative C) UA Blood Negative LAB PHUA(LOINC ) UA pH 6.5 LAB PROUA(LOIN Negative mg/dL C) UA Protein Negative LAB UROUA(LOIN E.U./dL C) UA Urobilinogen 0.2 LAB NITUA(LOIN Negative C) UA Nitrite Negative LAB LEUUA(LOIN Negative C) UA Leuk Est Negative Performed By: #### UA, UAMICAO #### [address] [address] .URINALYSIS MICROSCOPIC Collected: 02/21/2018 Status: F Source: [facility] 10:14 [facility] REPOSITORY TYPE CODE TESTS RESULT OUT OF RANGE REFERENCE UNITS LAB WBCUA(LOIN None Seen /hpf C) UA WBC None Seen LAB RBCUA(LOIN None Seen /hpf C) UA RBC None Seen LAB EPIUA(LOIN None Seen /hpf C) Unknown UA Squam Epithelial 0-5 LAB AMOUA(LOIN /hpf C) UA Amorphus 1+ LAB CGRNC(LOIN /lpf C) Unknown UA Coarse Granular 0-5 Casts Performed By: #### UA, UAMICAO #### [address] [place] [address] [place], [place] [address] PRO Collected: 02/21/2018 Status: F Source: [facility] 3:21 AM [facility] REPOSITORY Order Comment: ordered secondary to warfarin order TYPE CODE TESTS RESULT OUT OF REFERENCE UNITS RANGE LAB PT(LOINC) 9.0-14.5 seconds High Protime 14.6 Result Comment: Effective 01/22/08, Protime results may be affected by some antibiotics (i.e. Ciprofloxacin, Azithromycin, Bactrim) which may potentiate the action of oral anticoagulants, with further increases in Protime/INR. LAB INR(LOINC) ratio PT International Ratio 1.3 Result Comment: [employer] (CHEST, 1992, 102:312S-[id number]) recommended therapeutic range for oral anticoagulant therapy is: LOW RISK: Prophylaxis of venous thrombosis INR: 2.0-3.0 Treatment of pulmonary embolism 2.0-3.0 Prevention of systemic embolism 2.0-3.0 HIGH RISK: Mechanical prosthetic valves 2.5-3.5 Performed By: #### PRO #### [address] [address] CBC Collected: 02/21/2018 Status: F Source: [facility] 3:21 AM [facility] REPOSITORY TYPE CODE TESTS RESULT OUT OF REFERENCE UNITS RANGE LAB WBC(LOINC) 4.50-10.80 10 3/mcL WBC 9.80 LAB RBCCT(LOINC 4.10-5.30 10 6/mcL ) RBC 4.22 LAB HGB(LOINC) 12.0-16.0 G/dL Low Hgb 11.8 LAB HCT(LOINC) 34.0-46.0 % Hct 35.6 LAB MCV(LOINC) 80.0-99.0 fL MCV 84.4 LAB MCH(LOINC) 27.0-33.0 pg MCH 27.9 LAB MCHC(LOINC) 32.0-36.0 G/dL MCHC 33.1 LAB RDW(LOINC) 11.5-15.5 % High RDW 16.0 LAB PLT(LOINC) 150-450 10 3/mcL Platelet 198 LAB MPV(LOINC) 6.6-10.5 fL MPV 9.3 Performed By: #### CBC, MALLIKA, ANEU #### [place] [id number] .AUTO DIFF Collected: 02/21/2018 Status: F Source: [facility] 3:21 AM [facility] REPOSITORY TYPE CODE TESTS RESULT OUT OF REFERENCE UNITS RANGE LAB DELANEY(LOINC) 50.0-75.0 % Neutrophil % 73.5 LAB LYM(LOINC) 20.0-40.0 % Low Lymphocyte % 14.1 LAB MON(LOINC) 2.0-13.0 % Monocyte % 8.8 LAB EO(LOINC) 0.0-6.0 % Eosinophil % 3.4 LAB BAS(LOINC) 0.0-2.5 % Basophil % 0.2 LAB ABLYM(LOIN 0.90-4.32 10 3/mcL C) Lymphocyte, 1.40 Absolute LAB COURTNEY(LOINC 0.09-1.40 10 3/mcL ) Monocyte, 0.90 Absolute LAB AEOS(LOINC 0.00-0.65 10 3/mcL ) Eosinophil, 0.30 Absolute LAB ABAS(LOINC 0.00-0.27 10 3/mcL ) Basophil, 0.00 Absolute Performed By: #### CBC, ADIFF, ANEU #### [place] [address] .NEUABS Collected: 02/21/2018 Status: F Source: [facility] 3:21 AM [facility] REPOSITORY TYPE CODE TESTS RESULT OUT OF REFERENCE UNITS RANGE LAB ANEU(LOINC) 2.25-8.10 10 3/mcL Neutrophil, 7.20 Absolute Performed By: #### CBC, ADIFF, ANEU #### [place] [address] CBC Collected: 02/20/2018 Status: F Source: [facility] 3:52 AM [facility] REPOSITORY TYPE CODE TESTS RESULT OUT OF REFERENCE UNITS RANGE LAB WBC(LOINC) 4.50-10.80 10 3/mcL High WBC 17.00 LAB RBCCT(LOINC 4.10-5.30 10 6/mcL ) RBC 4.33 LAB HGB(LOINC) 12.0-16.0 G/dL Hgb 12.1 LAB HCT(LOINC) 34.0-46.0 % Hct 36.6 LAB MCV(LOINC) 80.0-99.0 fL MCV 84.6 LAB MCH(LOINC) 27.0-33.0 pg MCH 27.9 LAB MCHC(LOINC) 32.0-36.0 G/dL MCHC 33.0 LAB RDW(LOINC) 11.5-15.5 % High RDW 15.7 LAB PLT(LOINC) 150-450 10 3/mcL Platelet 179 LAB MPV(LOINC) 6.6-10.5 fL MPV 9.6 Performed By: #### CBC, ADIFF, ANEU, PRO, BMP, GFR #### [place] [address] .AUTO DIFF Collected: 02/20/2018 Status: F Source: [facility] 3:52 AM [facility] REPOSITORY TYPE CODE TESTS RESULT OUT OF REFERENCE UNITS RANGE LAB DELANEY(LOINC) 50.0-75.0 % High Neutrophil % 88.1 LAB LYM(LOINC) 20.0-40.0 % Low Lymphocyte % 6.3 LAB MON(LOINC) 2.0-13.0 % Monocyte % 5.6 LAB EO(LOINC) 0.0-6.0 % Eosinophil % 0.0 LAB BAS(LOINC) 0.0-2.5 % Basophil % 0.0 LAB ABLYM(LOIN 0.90-4.32 10 3/mcL C) Lymphocyte, 1.10 Absolute LAB COURTNEY(LOINC 0.09-1.40 10 3/mcL ) Monocyte, 1.00 Absolute LAB AEOS(LOINC 0.00-0.65 10 3/mcL ) Eosinophil, 0.00 Absolute LAB ABAS(LOINC 0.00-0.27 10 3/mcL ) Basophil, 0.00 Absolute Performed By: #### CBC, ADIFF, ANEU, PRO, BMP, GFR #### [place] [address] .NEUABS Collected: 02/20/2018 Status: F Source: [facility] 3:52 AM [facility] REPOSITORY TYPE CODE TESTS RESULT OUT OF REFERENCE UNITS RANGE LAB ANEU(LOINC) 2.25-8.10 10 3/mcL High Neutrophil, 14.90 Absolute Performed By: #### CBC, ADIFF, ANEU, PRO, BMP, GFR #### [place] [address] PRO Collected: 02/20/2018 Status: F Source: [facility] 3:52 AM [facility] REPOSITORY TYPE CODE TESTS RESULT OUT OF REFERENCE UNITS RANGE LAB PT(LOINC) 9.0-14.5 seconds Protime 13.9 Result Comment: Effective 01/22/08, Protime results may be affected by some antibiotics (i.e. Ciprofloxacin, Azithromycin, Bactrim) which may potentiate the action of oral anticoagulants, with further increases in Protime/INR. LAB INR(LOINC) ratio PT International Ratio 1.2 Result Comment: [employer] (CHEST, 1992, 102:312S-25S) recommended therapeutic range for oral anticoagulant therapy is: LOW RISK: Prophylaxis of venous thrombosis INR: 2.0-3.0 Treatment of pulmonary embolism 2.0-3.0 Prevention of systemic embolism 2.0-3.0 HIGH RISK: Mechanical prosthetic valves 2.5-3.5 Performed By: #### CBC, ADIFF, ANEU, PRO, BMP, GFR #### [address] [address] BMP Collected: 02/20/2018 Status: F Source: [facility] 3:52 AM [facility] REPOSITORY TYPE CODE TESTS RESULT OUT OF REFERENCE UNITS RANGE LAB GLU(LOINC) 82-115 mg/dL Glucose High Level 123 LAB NA(LOINC) 136-145 mEq/L Sodium Level 142 LAB K(LOINC) 3.5-5.0 mEq/L Potassium Level 4.6 LAB CL(LOINC) 98-110 mEq/L Chloride 102 LAB CO2(LOINC) 22-32 mEq/L CO2 31 LAB EBAL(LOINC 4.0-15.0 mEq/L ) Electrolyte Balance 9.0 LAB BUN(LOINC) 8.0-22.0 mg/dL BUN High 27.0 LAB CRE(LOINC) 0.50-1.20 mg/dL Creatinine Lvl (s) 0.95 LAB BC(LOINC) 10.0-22.0 ratio High BUN/Creatinine 28.4 Ratio LAB CA(LOINC) 8.4-10.1 mg/dL Calcium Lvl 9.8 Performed By: #### CBC, ADIFF, ANEU, PRO, BMP, GFR #### [address] [id number] .GFR Collected: 02/20/2018 Status: F Source: [facility] 3:52 AM [facility] REPOSITORY TYPE CODE TESTS RESULT OUT OF REFERENCE UNITS RANGE LAB GFRAA(LOINC ml/min/1.73 ) sqm GFR >60 Turkish Result Comment: GFR Population mean for , Non- Americans Ages 20-29 = 116 mL/min/1.73 sq.m. Ages 30-39 = 107 mL/min/1.73 sq.m. Ages 40-49 = 99 mL/min/1.73 sq.m. Ages 50-59 = 93 mL/min/1.73 sq.m. Ages 60-69 = 85 mL/min/1.73 sq.m. Ages 70+ = 75 mL/min/1.73 sq.m. Chronic Kidney Disease: Less than 60 mL/min/1.73 square meters End Stage Renal Disease: Less than 15 mL/min/1.73 square meters LAB GFRNO(LOINC) ml/min/1.73sqm GFR Non- 57 Result Comment: GFR Population mean for , Non- Americans Ages 20-29 = 116 mL/min/1.73 sq.m. Ages 30-39 = 107 mL/min/1.73 sq.m. Ages 40-49 = 99 mL/min/1.73 sq.m. Ages 50-59 = 93 mL/min/1.73 sq.m. Ages 60-69 = 85 mL/min/1.73 sq.m. Ages 70+ = 75 mL/min/1.73 sq.m. Chronic Kidney Disease: Less than 60 mL/min/1.73 square meters End Stage Renal Disease: Less than 15 mL/min/1.73 square meters Performed By: #### CBC, ADIFF, ANEU, PRO, BMP, GFR #### [place] [id number] XR HIP LEFT W/PELVIS Observed: 02/19/2018 Status: F Source: [facility] 4 VIEWS 11:35 AM [facility] REPOSITORY ORIGINAL XR HIP LEFT W/PELVIS 4 VIEWS CLINICAL STATEMENT: postop COMPARISON: None FINDINGS:A single view pelvis and hip demonstrate a LEFT hip prosthesis in place with postoperative changes to the soft tissues. There is limited bony detail to evaluate for post surgical fracture. No o bvious fracture is confirmed. Partial visualization of kyphoplasty change in the lower lumbosacral spine is noted. IMPRESSION:Post prosthesis placement with limited bony detail Interpreted By: Michelle Ribera MD Preliminary Report By: Michelle Ribera MD Electronically Signed By: Michelle Ribera MD Dictated Date: 02/19/2018 12:38:36 PM Prelim Date: 02/19/2018 12:38:36 PM Sign Date: 02/19/2018 12:39:09 PM PRO Collected: 02/19/2018 Status: F Source: [facility] 3:46 AM [facility] REPOSITORY TYPE CODE TESTS RESULT OUT OF REFERENCE UNITS RANGE LAB PT(LOINC) 9.0-14.5 seconds High Protime 16.1 Result Comment: Effective 01/22/08, Protime results may be affected by some antibiotics (i.e. Ciprofloxacin, Azithromycin, Bactrim) which may potentiate the action of oral anticoagulants, with further increases in Protime/INR. LAB INR(LOINC) ratio PT International Ratio 1.4 Result Comment: The [employer] (CHEST, 1992, 102:312S-25S) recommended therapeutic range for oral anticoagulant therapy is: LOW RISK: Prophylaxis of venous thrombosis INR: 2.0-3.0 Treatment of pulmonary embolism 2.0-3.0 Prevention of systemic embolism 2.0-3.0 HIGH RISK: Mechanical prosthetic valves 2.5-3.5 Performed By: #### PRO #### [place] [address] UA Collected: 02/19/2018 Status: F Source: [facility] 12:40 AM [facility] REPOSITORY TYPE CODE TESTS RESULT OUT OF RANGE REFERENCE UNITS LAB SPCUA(ANCELMO NC) UA Specimen Type Clean Catch LAB CLRUA(ANCELMO NC) UA Color Yellow LAB APPUA(ANCELMO Clear NC) UA Appear Unknown Turbid LAB SGUA(LOIN 1.006-1.029 C) UA Spec Grav 1.025 LAB GLUA(LOIN Negative mg/dL C) UA Glucose Negative LAB BILUA(ANCELMO Neg-Trace NC) UA Bili Negative LAB KETUA(ANCELMO Neg-Trace mg/dL NC) UA Ketones Negative LAB BLDUA(ANCELMO Neg-Trace NC) UA Blood Unknown Large LAB PHUA(LOIN 5.0 - 8.0 C) UA pH 5.0 LAB PROUA(ANCELMO Negative mg/dL NC) UA Protein 30 LAB UROUA(ANCELMO 0.2-1.0 E.U./dL NC) UA Urobilinogen 1.0 LAB NITUA(ANCELMO Negative NC) UA Nitrite Unknown Positive LAB LEUUA(ANCELMO Negative NC) UA Leuk Est Unknown Moderate Performed By: #### UA, UAMIC #### [place] [id number] UAMIC Collected: 02/19/2018 Status: F Source: [facility] 12:40 AM [facility] REPOSITORY TYPE CODE TESTS RESULT OUT OF RANGE REFERENCE UNITS LAB RBCUA(LOIN 0-2 /hpf C) UA RBC Unknown 3-5 LAB WBCUA(LOIN 0-5 /hpf C) UA WBC Unknown 25-50 LAB EPIUA(LOIN 0-20 /hpf C) UA Squam Epithelial 3-5 LAB TEPUA(LOIN /hpf C) UA Transitional 0-2 Epithelial LAB AMOUA(LOIN /hpf C) UA Amorphus 2+ LAB BACUA(LOIN Negative /hpf C) UA Bacteria Unknown 4+ LAB CGRNC(LOIN /lpf C) UA Coarse Unknown Granular Casts Rare Performed By: #### UA, UAMIC #### [place] [address] Observed: 02/19/2018 Status: F Source: [facility] 12:40 AM [facility] REPOSITORY . MICRO - Microbiology PROCEDURE: Urine Culture [*1] SOURCE: Urine, Clean Catch BODY SITE: COLLECTED DATE/TIME: 02/19/2018 00:40 EDT RECEIVED DATE/TIME: 02/19/2018 08:02 EDT START DATE/TIME: 02/19/2018 08:02 EDT FREE TEXT SOURCE: FINAL REPORTS Final Report [] Verified Date/Time/Personnel: 02/20/2018 14:00 EDT >100,000 organisms per mL Mixed without predominant isolate(s). Sensitivity Testing not indicated. Probably contamination. Repeat culture suggested. Performing Locations *1: This test was performed at: [facility], [address] [place] [address], [address] , [facility] Performed By: #### CUR #### [place] [address] TABO Collected: 02/18/2018 Status: F Source: [facility] 2:19 PM [facility] REPOSITORY TYPE CODE TESTS RESULT OUT OF RANGE REFERENCE UNITS LAB ABORH(LOINC ) Unknown ABO/Rh A POS Interp Performed By: #### MAX, ANTIS #### [address] [address] TABS Collected: 02/18/2018 Status: F Source: [facility] 2:19 PM [facility] REPOSITORY TYPE CODE TESTS RESULT OUT OF REFERENCE UNITS RANGE LAB ANST(LOINC ) Antibody Negative ABSC Screen Tango Performed By: #### MAX, ANTIS #### [address] [address] CBC Collected: 02/18/2018 Status: F Source: [facility] 3:33 AM [facility] REPOSITORY TYPE CODE TESTS RESULT OUT OF REFERENCE UNITS RANGE LAB WBC(LOINC) 4.50-10.80 10 3/mcL High WBC 14.00 LAB RBCCT(LOINC 4.10-5.30 10 6/mcL ) RBC 5.05 LAB HGB(LOINC) 12.0-16.0 G/dL Hgb 13.9 LAB HCT(LOINC) 34.0-46.0 % Hct 42.8 LAB MCV(LOINC) 80.0-99.0 fL MCV 84.7 LAB MCH(LOINC) 27.0-33.0 pg MCH 27.5 LAB MCHC(LOINC) 32.0-36.0 G/dL MCHC 32.5 LAB RDW(LOINC) 11.5-15.5 % High RDW 16.0 LAB PLT(LOINC) 150-450 10 3/mcL Platelet 208 LAB MPV(LOINC) 6.6-10.5 fL MPV 9.3 Performed By: #### CBC, ADIFF, ANEU, MG, GFR, PRO, BMP #### [address] [address] .AUTO DIFF Collected: 02/18/2018 Status: F Source: [facility] 3:33 AM [facility] REPOSITORY TYPE CODE TESTS RESULT OUT OF REFERENCE UNITS RANGE LAB DELANEY(LOINC) 50.0-75.0 % High Neutrophil % 84.1 LAB LYM(LOINC) 20.0-40.0 % Low Lymphocyte % 8.8 LAB MON(LOINC) 2.0-13.0 % Monocyte % 6.3 LAB EO(LOINC) 0.0-6.0 % Eosinophil % 0.5 LAB BAS(LOINC) 0.0-2.5 % Basophil % 0.3 LAB ABLYM(LOIN 0.90-4.32 10 3/mcL C) Lymphocyte, 1.20 Absolute LAB COURTNEY(LOINC 0.09-1.40 10 3/mcL ) Monocyte, 0.90 Absolute LAB AEOS(LOINC 0.00-0.65 10 3/mcL ) Eosinophil, 0.10 Absolute LAB ABAS(LOINC 0.00-0.27 10 3/mcL ) Basophil, 0.00 Absolute Performed By: #### CBC, ADIFF, ANEU, MG, GFR, PRO, BMP #### [place] [address] .NEUABS Collected: 02/18/2018 Status: F Source: [facility] 3:33 AM [facility] REPOSITORY TYPE CODE TESTS RESULT OUT OF REFERENCE UNITS RANGE LAB ANEU(LOINC) 2.25-8.10 10 3/mcL High Neutrophil, 11.80 Absolute Performed By: #### CBC, ADIFF, ANEU, MG, GFR, PRO, BMP #### [place] [address] MG Collected: 02/18/2018 Status: F Source: [facility] 3:33 AM [facility] REPOSITORY TYPE CODE TESTS RESULT OUT OF REFERENCE UNITS RANGE LAB MG(LOINC) 1.6-2.4 mg/dL Magnesium Lvl 2.0 Performed By: #### CBC, ADIFF, ANEU, MG, GFR, PRO, BMP #### [place] [address] .GFR Collected: 02/18/2018 Status: F Source: [facility] 3:33 AM [facility] REPOSITORY TYPE CODE TESTS RESULT OUT OF REFERENCE UNITS RANGE LAB GFRAA(LOINC ml/min/1.73 ) sqm GFR >60 Turkish Result Comment: GFR Population mean for , Non- Americans Ages 20-29 = 116 mL/min/1.73 sq.m. Ages 30-39 = 107 mL/min/1.73 sq.m. Ages 40-49 = 99 mL/min/1.73 sq.m. Ages 50-59 = 93 mL/min/1.73 sq.m. Ages 60-69 = 85 mL/min/1.73 sq.m. Ages 70+ = 75 mL/min/1.73 sq.m. Chronic Kidney Disease: Less than 60 mL/min/1.73 square meters End Stage Renal Disease: Less than 15 mL/min/1.73 square meters LAB GFRNO(LOINC) ml/min/1.73sqm GFR Non- 60 Result Comment: GFR Population mean for , Non- Americans Ages 20-29 = 116 mL/min/1.73 sq.m. Ages 30-39 = 107 mL/min/1.73 sq.m. Ages 40-49 = 99 mL/min/1.73 sq.m. Ages 50-59 = 93 mL/min/1.73 sq.m. Ages 60-69 = 85 mL/min/1.73 sq.m. Ages 70+ = 75 mL/min/1.73 sq.m. Chronic Kidney Disease: Less than 60 mL/min/1.73 square meters End Stage Renal Disease: Less than 15 mL/min/1.73 square meters Performed By: #### CBC, ADIFF, ANEU, MG, GFR, PRO, BMP #### [place] [address] PRO Collected: 02/18/2018 Status: F Source: [facility] 3:33 AM [facility] TYPE CODE TESTS RESULT OUT OF REFERENCE UNITS RANGE LAB PT(LOINC) 9.0-14.5 seconds High Protime 49.4 Result Comment: Effective 01/22/08, Protime results may be affected by some antibiotics (i.e. Ciprofloxacin, Azithromycin, Bactrim) which may potentiate the action of oral anticoagulants, with further increases in Protime/INR. LAB INR(LOINC) ratio PT International Ratio 4.2 Result Comment: The [employer] (CHEST, 1992, 102:312S-25S) recommended therapeutic range for oral anticoagulant therapy is: LOW RISK: Prophylaxis of venous thrombosis INR: 2.0-3.0 Treatment of pulmonary embolism 2.0-3.0 Prevention of systemic embolism 2.0-3.0 HIGH RISK: Mechanical prosthetic valves 2.5-3.5 Performed By: #### CBC, ADIFF, ANEU, MG, GFR, PRO, BMP #### [facility] [address] [place] [address] BMP Collected: 02/18/2018 Status: F Source: [facility] 3:33 AM [facility] REPOSITORY TYPE CODE TESTS RESULT OUT OF REFERENCE UNITS RANGE LAB GLU(LOINC) 82-115 mg/dL Glucose Level 111 LAB NA(LOINC) 136-145 mEq/L Sodium Level 144 LAB K(LOINC) 3.5-5.0 mEq/L Potassium Level 4.4 LAB CL(LOINC) 98-110 mEq/L Chloride 105 LAB CO2(LOINC) 22-32 mEq/L CO2 High 33 LAB EBAL(LOINC 4.0-15.0 mEq/L ) Electrolyte Balance 6.0 LAB BUN(LOINC) 8.0-22.0 mg/dL BUN High 23.0 LAB CRE(LOINC) 0.50-1.20 mg/dL Creatinine Lvl (s) 0.92 LAB BC(LOINC) 10.0-22.0 ratio High BUN/Creatinine 25.0 Ratio LAB CA(LOINC) 8.4-10.1 mg/dL Calcium Lvl 9.0 Performed By: #### CBC, ADIFF, ANEU, MG, GFR, PRO, BMP #### [address] [address] XR HIP LEFT W/PELVIS Observed: 02/17/2018 Status: F Source: [facility] 4 VIEWS 3:58 PM [facility]POS[facility] ORIGINAL XR HIP LEFT W/PELVIS 4 VIEWS CLINICAL STATEMENT: pain. Status post fall, LEFT hip pain COMPARISON: CT abdomen and pelvis 09/30/2013 FINDINGS: The pelvic ring is intact. No acute pelvic fracture or dislocation is identified. Degenerative changes are noted of the SI joints, RIGHT hip, pubic symphysis. There is partial visualization of IVC filter. L4 and L5 vertebral body augmentation changes are seen. Surgical clips are noted throughout the pelvis. A mild to moderate amount stool is noted of the rectal vault. Calcified pelvic phleboliths are seen. There is an acute transcervical fracture of the LEFT femur with mild superior migration of the distal fracture fragment. No dislocation. IMPRESSION: Acute transcervical LEFT femoral fracture. Mild superior migration of the distal fracture fragment. No dislocation. I have personally reviewed the images of this examination and agree with the resident's findings and interpretation. Interpreted By: Ronaldo Javed DO Preliminary Report By: Archie Lux DO Electronically Signed By: Ronaldo Javed DO Dictated Date: 02/17/2018 4:25:16 PM Prelim Date: 02/17/2018 4:27:15 PM Sign Date: 02/17/2018 4:52:30 PM XR CHEST 2 VIEWS Observed: 02/17/2018 Status: F Source: [facility] 3:58 PM [facility] REPOSITORY ORIGINAL XR CHEST 2 VIEWS CLINICAL STATEMENT: SOB. History of sarcoidosis COMPARISON: CT chest 04/07/2016, chest radiograph 07/18/2014 FINDINGS: The cardiac and mediastinal contours are within normal limits. Atherosclerosis is noted of the thoracic aorta. Fullness of the zulema and RIGHT paratracheal stripe could relate to diagnosis of s arcoidosis. Low lung volumes are demonstrated. There is mild suspected central vascular congestion. There may be questionable airspace opacity of the RIGHT infrahilar region, as seen on the 04/07/2016 C T chest. Scarring and/or atelectasis are noted of the RIGHT upper lobe. Vertebral body augmentation is noted of a lower thoracic vertebral level. No acute osseous abnormalities visualized. IMPRESSION: Mild suspected central vascular congestion. Questionable RIGHT infrahilar airspace opacity or subsegmental atelectasis. Follow chest x-ray to show resolution suggested. I have personally reviewed the images of this examination and agree with the resident's findings and interpretation. Interpreted By: Ronaldo Javed DO Preliminary Report By: Archie Lux DO Electronically Signed By: Ronaldo Javed DO Dictated Date: 02/17/2018 4:29:29 PM Prelim Date: 02/17/2018 4:32:12 PM Sign Date: 02/17/2018 4:43:[address] HEAD OR BRAIN W/O Observed: 02/17/2018 Status: F Source: [facility] CONTRAST 3:48 PM [facility] REPOSITORY ORIGINAL CT HEAD OR BRAIN W/O CONTRAST Clinical Statement: pain. Status post fall landing on LEFT side, LEFT hip pain, denies loss of consciousness, hit back of head TECHNIQUE: Axial CT images from skull base to vertex without IV contrast. This exam was performed according to our departmental dose optimization program, and includes the following measures where applicable: automated exposure control, adjustment of the mAs and/or kVp accord ing to patient size and/or exam, and an iterative reconstruction algorithm. COMPARISON: 03/23/2014 FINDINGS: There is no intracranial hemorrhage, mass, mass effect or abnormal extra-axial fluid collection. No CT evidence for acute large territorial infarction. The density in the larger dural venous sinuses is grossly normal. There is moderate cerebral volume loss, with commensurate ventricular and sulcal enlargement. Atherosclerotic calcifications are present in the cavernous carotid and vertebral arteries. There are perive ntricular/subcortical white matter hypodensities, nonspecific but statistically represent moderate chronic microvascular angiopathy. The skull base and calvarium demonstrate no acute abnormality. The included paranasal sinuses and mastoid air cells are predominantly clear. Postsurgical changes are noted of the globes. IMPRESSION: No acute intracranial abnormality. Chronic changes as above. I have personally reviewed the images of this examination and agree with the resident's findings and interpretation. Interpreted By: Ronaldo Javed DO Preliminary Report By: Archie Lux DO Electronically Signed By: Ronaldo Javed DO Dictated Date: 02/17/2018 4:10:26 PM Prelim Date: 02/17/2018 4:14:09 PM Sign Date: 02/17/2018 4:31:53 PM PRO Collected: 02/17/2018 Status: F Source: [facility] 2:49 PM [facility] REPOSITORY TYPE CODE TESTS RESULT OUT OF REFERENCE UNITS RANGE LAB PT(LOINC) 9.0-14.5 seconds High Protime 38.1 Result Comment: Effective 01/22/08, Protime results may be affected by some antibiotics (i.e. Ciprofloxacin, Azithromycin, Bactrim) which may potentiate the action of oral anticoagulants, with further increases in Protime/INR. LAB INR(LOINC) ratio PT International Ratio 3.2 Result Comment: The [employer] (CHEST, 1992, 102:312S-25S) recommended therapeutic range for oral anticoagulant therapy is: LOW RISK: Prophylaxis of venous thrombosis INR: 2.0-3.0 Treatment of pulmonary embolism 2.0-3.0 Prevention of systemic embolism 2.0-3.0 HIGH RISK: Mechanical prosthetic valves 2.5-3.5 Performed By: #### PRO #### [place] [address] CBC Collected: 02/17/2018 Status: F Source: [facility] 2:29 PM [facility] REPOSITORY TYPE CODE TESTS RESULT OUT OF REFERENCE UNITS RANGE LAB WBC(LOINC) 4.50-10.80 10 3/mcL High WBC 18.80 LAB RBCCT(LOINC 4.10-5.30 10 6/mcL ) High RBC 5.56 LAB HGB(LOINC) 12.0-16.0 G/dL Hgb 15.1 LAB HCT(LOINC) 34.0-46.0 % High Hct 47.0 LAB MCV(LOINC) 80.0-99.0 fL MCV 84.5 LAB MCH(LOINC) 27.0-33.0 pg MCH 27.2 LAB MCHC(LOINC) 32.0-36.0 G/dL MCHC 32.2 LAB RDW(LOINC) 11.5-15.5 % High RDW 16.1 LAB PLT(LOINC) 150-450 10 3/mcL Platelet 236 LAB MPV(LOINC) 6.6-10.5 fL MPV 9.1 Performed By: #### CBC, ADIFF, ANEU, BMP, GFR #### [place] [address] .AUTO DIFF Collected: 02/17/2018 Status: F Source: [facility] 2:29 [facility] REPOSITORY TYPE CODE TESTS RESULT OUT OF REFERENCE UNITS RANGE LAB DELANEY(LOINC) 50.0-75.0 % High Neutrophil % 86.6 LAB LYM(LOINC) 20.0-40.0 % Low Lymphocyte % 7.5 LAB MON(LOINC) 2.0-13.0 % Monocyte % 5.4 LAB EO(LOINC) 0.0-6.0 % Eosinophil % 0.3 LAB BAS(LOINC) 0.0-2.5 % Basophil % 0.2 LAB ABLYM(LOIN 0.90-4.32 10 3/mcL C) Lymphocyte, 1.40 Absolute LAB COURTNEY(LOINC 0.09-1.40 10 3/mcL ) Monocyte, 1.00 Absolute LAB AEOS(LOINC 0.00-0.65 10 3/mcL ) Eosinophil, 0.10 Absolute LAB ABAS(LOINC 0.00-0.27 10 3/mcL ) Basophil, 0.00 Absolute Performed By: #### CBC, ADIFF, ANEU, BMP, GFR #### [address] [address] .NEUABS Collected: 02/17/2018 Status: F Source: [facility] 2:29 PM [facility] REPOSITORY TYPE CODE TESTS RESULT OUT OF REFERENCE UNITS RANGE LAB ANEU(LOINC) 2.25-8.10 10 3/mcL High Neutrophil, 16.30 Absolute Performed By: #### CBC, ADIFF, ANEU, BMP, GFR #### [place] [address] BMP Collected: 02/17/2018 Status: F Source: [facility] 2:29 PM [facility] REPOSITORY TYPE CODE TESTS RESULT OUT OF REFERENCE UNITS RANGE LAB GLU(LOINC) 82-115 mg/dL Glucose High Level 136 LAB NA(LOINC) 136-145 mEq/L Sodium Level 141 LAB K(LOINC) 3.5-5.0 mEq/L Low Potassium Level 3.3 LAB CL(LOINC) 98-110 mEq/L Chloride 102 LAB CO2(LOINC) 22-32 mEq/L CO2 High 34 LAB EBAL(LOINC 4.0-15.0 mEq/L ) Electrolyte Balance 5.0 LAB BUN(LOINC) 8.0-22.0 mg/dL BUN High 25.0 LAB CRE(LOINC) 0.50-1.20 mg/dL Creatinine Lvl (s) 1.00 LAB BC(LOINC) 10.0-22.0 ratio High BUN/Creatinine 25.0 Ratio LAB CA(LOINC) 8.4-10.1 mg/dL Calcium Lvl 9.8 Performed By: #### CBC, ADIFF, ANEU, BMP, GFR #### [address] [address] .GFR Collected: 02/17/2018 Status: F Source: [facility] 2:29 [facility] REPOSITORY TYPE CODE TESTS RESULT OUT OF REFERENCE UNITS RANGE LAB GFRAA(LOINC ml/min/1.73 ) sqm GFR >60 Turkish Result Comment: GFR Population mean for , Non- Americans Ages 20-29 = 116 mL/min/1.73 sq.m. Ages 30-39 = 107 mL/min/1.73 sq.m. Ages 40-49 = 99 mL/min/1.73 sq.m. Ages 50-59 = 93 mL/min/1.73 sq.m. Ages 60-69 = 85 mL/min/1.73 sq.m. Ages 70+ = 75 mL/min/1.73 sq.m. Chronic Kidney Disease: Less than 60 mL/min/1.73 square meters End Stage Renal Disease: Less than 15 mL/min/1.73 square meters LAB GFRNO(LOINC) ml/min/1.73sqm GFR Non- 54 Result Comment: GFR Population mean for , Non- Americans Ages 20-29 = 116 mL/min/1.73 sq.m. Ages 30-39 = 107 mL/min/1.73 sq.m. Ages 40-49 = 99 mL/min/1.73 sq.m. Ages 50-59 = 93 mL/min/1.73 sq.m. Ages 60-69 = 85 mL/min/1.73 sq.m. Ages 70+ = 75 mL/min/1.73 sq.m. Chronic Kidney Disease: Less than 60 mL/min/1.73 square meters End Stage Renal Disease: Less than 15 mL/min/1.73 square meters Performed By: #### CBC, ADIFF, ANEU, BMP, GFR #### [place] [address] ALLERGIES ALLERGIES No Allergies [facility]/DISCHARGE ACCOUNT NUMBER ADMITTING ENCOUNTER LOCATION SOURCE CLASS 07/24/2018 [id number] [facility] ding:[facility] Repository 06/25/2018 [id number] [facility] ding:[facility] Repository 06/13/2018 [id number] [facility] ding:[facility] Repository 05/28/2018 [id number] [facility] ding:[facility] Repository 05/21/2018 [id number] [facility] ding:[facility] Repository 05/09/2018 [id number] [facility] ding:[facility] Repository 05/02/2018 [id number] [facility] ding:[facility] Repository 04/18/2018 [id number] [facility] ding:[facility] Repository 04/09/2018 [id number] [facility] ding:[facility] Repository 04/04/2018 [id number] [facility] ding:[facility] Repository 04/03/2018 [id number] [facility] ding:[facility] Repository 03/23/2018 [id number] [facility] ding:[facility] Repository 03/21/2018 [id number] [facility] ding:[facility] Repository 03/14/2018 [id number] [facility] ding:[facility] Repository 03/09/2018 [id number] [facility] ding:[facility]S.[facility] Repository 03/08/2018 [id number] [facility] ding:[facility]S.[facility] Repository 02/21/2018/03/07/20 [id number] KIKO FREEMAN., Inpatient BBuilding:MS Kinza Phipps MD. PIERRE W Encounter URRoom: Health 0239Bed: S [facility] [place] Repository 02/17/2018/02/22/20 [id number] HENRRY FREEMAN, Inpatient ABuilding:ASHOK WATERS Encounter 5Room: [facility] 5504Bed: A [facility] [place] Repository PAYERS PAYERS ENCOUNTER GUARANTOR PAYER SUBSCRIBER SOURCE 07/24/2018 Osiris Ang Primary NOT GIVENBERE [id number] Good Insurance:SELF PAY [place] [address]Tel: [phone]) Number: Effective Repository [phone] () Date:2018-07-24 06/25/2018 Osiris Ang Primary Cassia [id number] Good Insurance:TERRELL BowensB: [place], [place] MEDICARE [facility] [id number] [place], [place] [address]Tel: [phone]) Number: Repository [phone] () [id number] Date:[id number] [address]JF: 06/25/2018 Secondary NOT GIVENUNK Carla Insurance:SELF PAY [facility] Number: Effective Repository Date:2018-06-25 06/13/2018 Cassia Fairbanks Primary Cassia A Kelley [id number] GOOD Insurance:MEDICARE JacksonDOB: [place], [place] PART A [facility] [id number] Hospital [address]Yzb: (330) Number: Repository [phone] () [id number] Date:2018-06-13 06/13/2018 Secondary Cassia A Kelley Insurance:AETNAPolicy JacksonDOB: [facility] Number: [id number] Hospital [id number] Repository Date:[id number], [place] [address]YK: 06/13/2018 Tertiary NOT GIVENUNK Kelley Insurance:SELF PAY [facility] Number: Effective Repository Date:2018-06-13 05/28/2018 Osiris Ang Primary Cassia A Kelley [id number] Good Insurance:AETNAPolicy JacksonDOB: [place] Number: [id number] Hospital [address]Xtd: 330 [id number] Repository [phone] () Date:0220-95-38[address], [place] [address]DI: 05/28/2018 Secondary Cassia A Kelley Insurance:MEDICARE JacksonDOB: [facility] PART A [facility] [id number] Hospital Number: Repository [id number] Date:2018-05-28 05/28/2018 Tertiary NOT GIVENUNK Carla Insurance:SELF PAY [facility] Number: Effective Repository Date:2018-05-28 05/21/2018 Osiris Ang Primary Cassia A Carla [id number] Good Insurance:AETNAPolicy [place]DOB: [place] Number: [id number] Hospital [address]Yhd: (330) [id number] Repository [phone] (HP) Date:2429-56-88[address] [address]GN: 05/21/2018 Secondary Cassia A Kelley Insurance:MEDICARE JacksonDOB: [facility] PART A [facility] [id number] Hospital Number: Repository [id number] Date:2018-05-21 05/21/2018 Tertiary NOT GIVENUNK Carla Insurance:SELF PAY [facility] Effective Repository Date:2018-05-21 05/09/2018 Osiris Ang Primary Cassia A Kelley [id number] Good Insurance:MEDICARE JacksonDOB: [place] PART A [facility] [id number] Hospital [address]Hkc: (330) Number: Repository [phone] () [id number] Date:2018-05-09 05/09/2018 Secondary Cassia A Carla Insurance:AETNAPolicy [place] [facility] Number: [id number] Hospital [id number] Repository Date:5051-42-97CY [facility] [address], [place] [address]BW: 05/09/2018 Tertiary NOT GIVENUNK Kelley Insurance:SELF PAY [facility] Number: Effective Repository Date:2018-05-09 05/02/2018 Osiris Maloney Cassia A Kelley [id number] Good Insurance:MEDICARE JacksonDOB: [place] PART A [facility] [id number] Hospital [address]Uqg: (330) Number: Repository [phone] () [id number] Date:2018-05-02 05/02/2018 Secondary NOT GIVENUNK Carla Insurance:SELF PAY [facility] Number: Effective Repository Date:2018-05-02 04/18/2018 Cassia A Primary Cassia A Kelley [id number] GOOD Insurance:MEDICARE JacksonDOB: [place] PART A [facility] [id number] Hospital [address]Npt: (330) Number: Repository [phone] () [id number] Date:2018-04-18 04/18/2018 Secondary Cassia A Kelley Insurance:AETNAFazalbelkys Bowens: [facility] Number: [id number] Hospital [id number] Repository Date:6332-92-05QB [address] [place] [address]YX: 04/18/2018 Tertiary NOT GIVENUNK Carla Insurance:SELF PAY [facility] Number: Effective Repository Date:2018-04-18 04/09/2018 Osiris J Primary NOT GIVENUNK Kelley [id number] Good Insurance:SELF PAY [place] [address]Tel: (330) Number: Effective Repository [phone] (HP) Date:2018-04-09 04/04/2018 Osiris J Primary NOT GIVENUNK Kelley [id number] Good Insurance:SELF PAY [place] [address]Tel: (330) Number: Effective Repository [phone] () Date:2018-04-04 04/03/2018 Osiris J Primary NOT GIVENUNK Kelley [id number] Good Insurance:SELF PAY [facility] [address]Aaz: (330) Number: Effective Repository [phone] () Date:2018-04-03 03/23/2018 Osiris J Primary NOT GIVENUNK Carla [id number] Good Insurance:SELF PAY [facility] [id number]: [phone] Number: Effective Repository [phone] () Date:2018-03-23 03/21/2018 Osiris J Primary NOT GIVENUNK Carla [id number] Good Insurance:SELF PAY [facility] [id number]: [phone]) Number: Effective Repository [phone] (HP) Date:2018-03-21 03/14/2018 Osiris J Primary NOT GIVENUNK Kelley [id number] Good Insurance:SELF PAY [facility] 31624Xze: [phone]) Number: Effective Repository [phone] (HP) Date:2018-03-14 03/09/2018 Osiris J Primary NOT GIVENUNK Carla [id number] Good Insurance:SELF PAY [facility] [id number]: [phone] Number: Effective Repository [phone] () Date:2018-03-09 03/08/2018 Osiris Ang Primary NOT GIVENUNK Carla [id number] Good Insurance:SELF PAY [facility] [address]1431Heh: [phone] Number: Effective Repository [phone] () Date:2018-03-08 02/21/2018 [facility] JACKSONDOB: [facility] PART APolicy Number: [id number] Repository [facility], [id number] [address] [place] [id number]: Date:2018-02-21 - [place], [place] [id number] [id number]: [phone]) (HP) Name:MMail Code [phone] [address] ()Tel: (000) [phone], [place] 000[address] ([place]) [address]VX: 02/21/2018 Secondary [facility] Insurance:MEDICARE JACKSONDOB: [facility] PART BPolicy Number: [id number] Repository [id number] 0 [address] Date:2018-02-21 - [place], [place] [id number] [id number]: [phone]) Name:[facility] [phone] Administrators LLCPO ()Tel: (000) [address] [address]Cfzuuhbdv, 000-[address] ([place]) [place] [address]AT: 02/17/2018 [facility]:MEDICARE JACKSONDOB: [facility] PART APolicy Number: [id number] Repository [facility], [id number] [address] [place] [id number]: Date:2018-02-17 - [place], [place] [id number] [id number]: [phone]) () Name:MMail Code [phone] [address] (HP)Tel: (000) [phone], [place] 000[address] ([place]) [address]OD: 02/17/2018 [facility] Insurance:MEDICARE [facility]: [facility] BPolicy Number: [id number] Repository [id number] 0 [address] Date:2018-02-17 - [place], [place] [id number]: ([phone]) Name:[facility] [phone] Administrators LLCPO (HP)Tel: (000) [address] [address]Kyereemrt, 000-0000 ([place]) [place] [address]UN:
== END ==
LOC: OLS.ACH 05:00
PROVIDERS: Visit Provider Family Medicine
DX: I48.91 Unspecified atrial fibrillation (principal)
CPT/HCPCS: 36416; 85610

== ENCOUNTER → 2018-07-24 05:00 | Outpatient (REF) | payer MEDICARE, SELFPAY ==
[2018-07-24 07:55] LABS: Prothrombin Time Fingerstick 23.9 SEC (11.9-14.4)
== END ==
LOC: OLS.ACH 05:00
PROVIDERS: Visit Provider Family Medicine
DX: I48.91 Unspecified atrial fibrillation (principal)
CPT/HCPCS: 36416; 85610

== ENCOUNTER → 2018-08-02 11:50 | Outpatient (REF) | payer MEDICARE, SELFPAY ==
[2018-08-02 13:05] LABS: Hematocrit 43.9 % (37-47); Hemoglobin 13.2 g/dl (12.0-15.0); Mean Corp Hgb Conc 30.1 g/gl (32-36); Mean Corpuscular Hgb 26.5 pg (27.0-32.0); Mean Corpuscular Volume 88.2 fL (81-99); Mean Platelet Vol. 12.1 fl (6.2-12.0); Platelet Count 205 K/mm3 (150-450); RBC Distribution Width CV 16.1 % (11.6-14.6); RBC Distribution Width SD 51.8 fl (35.1-43.9); Red Blood Count 4.98 M/mm3 (4.2-5.4); Scan Indicated on CBC? Y/N NO
[2018-08-02 13:23] LABS: Anion Gap 8 (5-15); BUN 28 mg/dL (7-18); BUN/Creat Ratio 27.2 RATIO (10-20); Calcium,Total 10.2 mg/dL (8.5-10.1); Chloride 104 mmol/L (98-107); Creatinine, Serum 1.03 mg/dL (0.55-1.02); EST Glomerular Filtration Rate 55 mL/min (>60); Est Glom Filt Rate - Afr Amer 67 mL/min (>60); Glucose 143 mg/dL (74-106); Potassium 4.1 mmol/L (3.5-5.1); Sodium Level 142 mmol/L (136-145)
== END ==
LOC: OLS.ACH 11:50
PROVIDERS: Visit Provider Family Medicine
DX: I73.9 Peripheral vascular disease, unspecified (principal)
CPT/HCPCS: 36415; 80048; 85027

== ENCOUNTER → 2018-08-28 04:30 | Outpatient (REF) | payer SELFPAY ==
[2018-08-28 07:10] LABS: International Normalized Ratio 2.1; Prothrombin Time (Protime)PT. 23.5 SECONDS (11.7-14.9)
== END ==
LOC: OLS.ACH 04:30
PROVIDERS: Visit Provider Family Medicine
DX: I48.91 Unspecified atrial fibrillation (principal)
CPT/HCPCS: 36415; 85610

== ENCOUNTER → 2018-09-25 05:00 | Outpatient (REF) | payer SELFPAY ==
[2018-09-25 08:35] LABS: International Normalized Ratio 2.2
== END ==
LOC: OLS.ACH 05:00
PROVIDERS: Visit Provider Family Medicine
DX: I48.91 Unspecified atrial fibrillation (principal)
CPT/HCPCS: 36415; 85610

== ENCOUNTER → 2018-10-08 04:30 | Outpatient (REF) | payer MEDICARE, OTHER, SELFPAY ==
[2018-10-08 08:51] LABS: Absolute Lymphocyte Count 1.57 X10^3/ul (0.83-4.51); Absolute Neutrophil Count 4.7 X10^3/uL (2.0-7.7); Basophil# 0.02 X10^3/uL; Basophil% 0.3 % (0-1); Eosinophil# 0.23 X10^3/uL; Eosinophils% 3.1 % (0-5); Hematocrit 39.8 % (37-47); Hemoglobin 12.4 g/dl (12.0-15.0); Lymphocyte # 1.57 X10^3/ul (4.0); Lymphocyte % 21.4 % (19-41); Mean Corp Hgb Conc 31.2 g/gl (32-36); Mean Corpuscular Hgb 26.3 pg (27.0-32.0); Mean Corpuscular Volume 84.5 fL (81-99); Mean Platelet Vol. 11.7 fl (6.2-12.0); Monocyte# 0.76 X10^3/uL; Monocyte% 10.4 % (0-10); Neutrophil # 4.72 X10^3/uL (2.7-7.7); Neutrophil % 64.5 % (47-70); Platelet Count 101 K/mm3 (150-450); Red Blood Count 4.71 M/mm3 (4.2-5.4); White Blood Count 7.3 K/mm3 (4.4-11.0)
[2018-10-08 08:59] LABS: POSITIVE COUNT NO; POSITIVE DIFFERENTIAL NO; POSITIVE MORPHOLOGY NO
[2018-10-08 09:39] LABS: AST(SGOT) 18 U/L (15-37); Alanine Aminotransfer ALT/SGPT 33 U/L (13-56); Albumin, Serum 2.7 g/dL (3.2-5.0); Alkaline Phosphatase 78 U/L (45-117); Anion Gap 6 (5-15); BUN 26 mg/dL (7-18); BUN/Creat Ratio 24.5 RATIO (10-20); Bilirubin, Direct 0.07 mg/dL (0.00-0.30); Chloride 107 mmol/L (98-107); Cholesterol 216 mg/dL (200); Creatinine, Serum 1.06 mg/dL (0.55-1.02); EST Glomerular Filtration Rate 54 mL/min (>60); Est Glom Filt Rate - Afr Amer 65 mL/min (>60); Globulin 3.8 g/dL (2.2-4.2); Glucose 104 mg/dL (74-106); High Density Lipoprotein 40 mg/dL; Protein, Total 6.5 g/dL (6.4-8.2); Sodium Level 144 mmol/L (136-145); T4 Total, Thyroxin 9.3 ug/dL (4.8-13.9); Thyroid Stim Hormone (TSH) 4.84 uIU/mL (0.358-3.74); Triglycerides 219 mg/dL; Very Low Density Lipoprotein 44 mg/dL (5-40)
[2018-10-08 15:01] LABS: Hemoglobin A1c 6.1 % (4.2-6.3)
== END ==
LOC: OLS.ACH 04:30
PROVIDERS: Visit Provider Family Medicine
DX: F20.9 Schizophrenia, unspecified (principal); J96.10 Chronic respiratory failure, unspecified whether with hypoxia or hypercapnia
CPT/HCPCS: 36415; 80048; 80061; 80076; 83036; 84436; 84443; 85025

== ENCOUNTER → 2018-10-26 05:00 | Outpatient (REF) | payer MEDICARE, OTHER, SELFPAY ==
[2018-10-26 08:31] LABS: Prothrombin Time Fingerstick 28.9 SEC (11.9-14.4)
== END ==
LOC: OLS.ACH 05:00
PROVIDERS: Visit Provider Family Medicine
DX: I48.91 Unspecified atrial fibrillation (principal)
CPT/HCPCS: 36416; 85610

== ENCOUNTER → 2018-11-23 | Outpatient (REF) | payer MEDICARE, OTHER, SELFPAY ==
[2018-11-23 07:15] LABS: Prothrombin Time Fingerstick 25.8 SEC (11.9-14.4)
== END | disposition home or self-care (01) ==
LOC: OLS.ACH 04:30
PROVIDERS: Visit Provider Family Medicine
DX: I48.91 Unspecified atrial fibrillation (principal)
CPT/HCPCS: 36416; 85610

== ENCOUNTER → 2018-12-28 | Outpatient (REF) | payer MEDICARE, OTHER, SELFPAY ==
[2018-12-28 07:01] LABS: Prothrombin Time Fingerstick 30.6 SEC (11.9-14.4)
== END | disposition home or self-care (01) ==
LOC: OLS.ACH 05:00
PROVIDERS: Visit Provider Family Medicine
DX: I48.91 Unspecified atrial fibrillation (principal)
CPT/HCPCS: 36416; 85610

== ENCOUNTER → 2019-01-25 | Outpatient (REF) | payer MEDICARE, OTHER, SELFPAY ==
[2019-01-25 07:16] LABS: Prothrombin Time Fingerstick 29.6 SEC (11.9-14.4)
== END | disposition home or self-care (01) ==
LOC: OLS.ACH 05:00
PROVIDERS: Visit Provider Family Medicine
DX: I48.91 Unspecified atrial fibrillation (principal)
CPT/HCPCS: 36416; 85610

== ENCOUNTER → 2019-02-22 05:00 | Outpatient (REF) | payer MEDICARE, OTHER, SELFPAY ==
[2019-02-22 08:43] LABS: International Normalized Ratio 2.4
== END ==
LOC: OLS.ACH 05:00
PROVIDERS: Visit Provider Family Medicine
DX: I48.91 Unspecified atrial fibrillation (principal)
CPT/HCPCS: 36415; 85610

== ENCOUNTER → 2019-03-29 05:00 | Outpatient (REF) | payer MEDICARE, OTHER, SELFPAY ==
[2019-03-29 09:32] LABS: Prothrombin Time Fingerstick 35.5 SEC (11.9-14.4)
== END ==
LOC: OLS.ACH 05:00
PROVIDERS: Visit Provider Family Medicine
DX: I48.91 Unspecified atrial fibrillation (principal)
CPT/HCPCS: 36416; 85610

== ENCOUNTER → 2019-03-31 19:10 | Outpatient (REF) | payer MEDICARE, OTHER, SELFPAY ==
[2019-03-31 19:52] LABS: International Normalized Ratio 2.3
== END ==
LOC: OLS.ACH 19:10
PROVIDERS: Visit Provider Family Medicine
DX: I48.91 Unspecified atrial fibrillation (principal)
CPT/HCPCS: 36415; 85610

== ENCOUNTER → 2019-04-15 | Outpatient (REF) | payer MEDICARE, OTHER, SELFPAY ==
[2019-04-15 07:52] LABS: Absolute Lymphocyte Count 1.52 X10^3/uL (0.83-4.51); Absolute Neutrophil Count 2.8 X10^3/uL (2.0-7.7); Basophil# 0.06 X10^3/uL; Basophil% 1.1 % (0-1); Eosinophils% 5.7 % (0-5); Hematocrit 34.6 % (37-47); Hemoglobin 10.7 g/dL (12.0-15.0); Lymphocyte # 1.52 X10^3/ul (4.0); Mean Corp Hgb Conc 30.9 g/dL (32-36); Mean Corpuscular Hgb 27.6 pg (27.0-32.0); Mean Corpuscular Volume 89.2 fL (81-99); Mean Platelet Vol. 11.6 fl (6.2-12.0); Monocyte# 0.52 X10^3/uL; Monocyte% 9.9 % (0-10); NRBC Flagged by Analyzer 0 % (0-5); Neutrophil # 2.83 X10^3/uL (2.7-7.7); Neutrophil % 54.1 % (47-70); Platelet Count 152 K/mm3 (150-450); RBC Distribution Width CV 14.1 % (11.6-14.6); Red Blood Count 3.88 M/mm3 (4.2-5.4); White Blood Count 5.2 K/mm3 (4.4-11.0)
[2019-04-15 08:24] LABS: AST(SGOT) 12 U/L (15-37); Alanine Aminotransfer ALT/SGPT 14 U/L (13-56); Albumin, Serum 2.4 g/dL (3.2-5.0); Alkaline Phosphatase 110 U/L (45-117); Anion Gap 3 (5-15); BUN 28 mg/dL (7-18); Bilirubin, Direct 0.06 mg/dL (0.00-0.30); Calcium,Total 9.9 mg/dL (8.5-10.1); Chloride 107 mmol/L (98-107); Creatinine, Serum 1.22 mg/dL (0.55-1.02); EST Glomerular Filtration Rate 46 mL/min (>60); Est Glom Filt Rate - Afr Amer 55 mL/min (>60); Globulin 3.5 g/dL (2.2-4.2); Glucose 87 mg/dL (74-106); Protein, Total 5.9 g/dL (6.4-8.2); Sodium Level 143 mmol/L (136-145)
[2019-04-15 08:27] LABS: Hemoglobin A1c 5.2 % (4.2-6.3)
== END | disposition home or self-care (01) ==
LOC: OLS.ACH 05:00
PROVIDERS: Visit Provider Family Medicine
DX: F20.9 Schizophrenia, unspecified (principal); J96.10 Chronic respiratory failure, unspecified whether with hypoxia or hypercapnia; Z79.52 Long term (current) use of systemic steroids; E03.9 Hypothyroidism, unspecified; R73.9 Hyperglycemia, unspecified
CPT/HCPCS: 36415; 80048; 80076; 83036; 84436; 84443; 85025

== ENCOUNTER → 2019-04-26 05:00 | Outpatient (REF) | payer MEDICARE, OTHER, SELFPAY ==
[2019-04-26 07:54] LABS: Prothrombin Time Fingerstick 26.8 SEC (11.9-14.4)
== END ==
LOC: OLS.ACH 05:00
PROVIDERS: Visit Provider Family Medicine
DX: I48.91 Unspecified atrial fibrillation (principal)
CPT/HCPCS: 36416; 85610

== ENCOUNTER → 2019-05-24 05:00 | Outpatient (REF) | payer MEDICARE, OTHER, SELFPAY ==
[2019-05-24 07:15] LABS: Prothrombin Time Fingerstick 36.8 SEC (11.9-14.4)
== END ==
LOC: OLS.ACH 05:00
PROVIDERS: Visit Provider Family Medicine
DX: I48.91 Unspecified atrial fibrillation (principal)
CPT/HCPCS: 36416; 85610

== ENCOUNTER → 2019-06-14 05:00 | Outpatient (REF) | payer MEDICARE, OTHER, SELFPAY ==
[2019-06-14 08:01] LABS: Prothrombin Time Fingerstick 29.6 SEC (11.9-14.4)
== END ==
LOC: OLS.ACH 05:00
PROVIDERS: Visit Provider Family Medicine
DX: I48.91 Unspecified atrial fibrillation (principal)
CPT/HCPCS: 36416; 85610

== ENCOUNTER → 2019-06-28 05:00 | Outpatient (REF) | payer MEDICARE, OTHER, SELFPAY ==
[2019-06-28 07:46] LABS: International Normalized Ratio 2.2; Prothrombin Time (Protime)PT. 24.5 SECONDS (11.7-14.9)
== END ==
LOC: OLS.ACH 05:00
PROVIDERS: Family Provider Preventive Medicine Occupational Medicine; PCP Preventive Medicine Occupational Medicine; Visit Provider Family Medicine
DX: I48.91 Unspecified atrial fibrillation (principal)
CPT/HCPCS: 85610

== ENCOUNTER → 2019-07-26 05:00 | Outpatient (REF) | payer MEDICARE, OTHER, SELFPAY ==
[2019-07-26 08:40] LABS: Prothrombin Time Fingerstick 31.8 SEC (11.9-14.4)
== END ==
LOC: OLS.ACH 05:00
PROVIDERS: PCP Preventive Medicine Occupational Medicine; Visit Provider Family Medicine
DX: I48.91 Unspecified atrial fibrillation (principal)
CPT/HCPCS: 36416; 85610

== ENCOUNTER → 2019-08-12 05:00 | Outpatient (REF) | payer MEDICARE, OTHER, SELFPAY ==
[2019-08-12 08:22] LABS: Absolute Lymphocyte Count 1.38 X10^3/uL (0.83-4.51); Absolute Neutrophil Count 3.3 X10^3/uL (2.0-7.7); Basophil# 0.07 X10^3/uL; Basophil% 1.2 % (0-1); Eosinophil# 0.31 X10^3/uL; Eosinophils% 5.5 % (0-5); Hematocrit 37.8 % (37-47); Hemoglobin 11.6 g/dL (12.0-15.0); Lymphocyte # 1.38 X10^3/ul (4.0); Lymphocyte % 24.4 % (19-41); Mean Corp Hgb Conc 30.7 g/dL (32-36); Mean Corpuscular Hgb 26.9 pg (27.0-32.0); Mean Corpuscular Volume 87.7 fL (81-99); Monocyte% 10.6 % (0-10); NRBC Flagged by Analyzer 0 % (0-5); Neutrophil # 3.28 X10^3/uL (2.7-7.7); Neutrophil % 57.9 % (47-70); Platelet Count 182 K/mm3 (150-450); RBC Distribution Width SD 45.1 fl (35.1-43.9); Red Blood Count 4.31 M/mm3 (4.2-5.4); White Blood Count 5.7 K/mm3 (4.4-11.0)
[2019-08-12 08:50] LABS: Ferritin 26 ng/mL (8-252); Iron 51 ug/dL (50-170); Iron Binding Capacity,Total 241 ug/dL (250-450); PERCENT IRON SATURATION 21.2 % (15.0-55.0)
[2019-08-12 09:08] LABS: Vitamin B12 538 pg/mL (211-911)
== END ==
LOC: OLS.ACH 05:00
PROVIDERS: PCP Preventive Medicine Occupational Medicine; Visit Provider Family Medicine
DX: D64.9 Anemia, unspecified (principal)
CPT/HCPCS: 36415; 82607; 82728; 82746; 83540; 83550; 85025

== ENCOUNTER → 2019-08-30 05:00 | Outpatient (REF) | payer MEDICARE, OTHER, SELFPAY ==
[2019-08-30 07:16] LABS: Hematocrit 36.9 % (37-47); Hemoglobin 11.5 g/dL (12.0-15.0); Mean Corp Hgb Conc 31.2 g/dL (32-36); Mean Corpuscular Hgb 27.4 pg (27.0-32.0); Mean Corpuscular Volume 87.9 fL (81-99); Mean Platelet Vol. 10.8 fl (6.2-12.0); Platelet Count 180 K/mm3 (150-450); RBC Distribution Width CV 13.9 % (11.6-14.6); RBC Distribution Width SD 44.6 fl (35.1-43.9); White Blood Count 5.4 K/mm3 (4.4-11.0)
[2019-08-30 07:38] LABS: ALB/GLOB Ratio 0.7 RATIO (0.9-2.4); AST(SGOT) 13 U/L (15-37); Alanine Aminotransfer ALT/SGPT 15 U/L (13-56); Albumin, Serum 2.5 g/dL (3.2-5.0); Alkaline Phosphatase 86 U/L (45-117); Anion Gap 3 (5-15); BUN 25 mg/dL (7-18); Calcium,Total 9.7 mg/dL (8.5-10.1); Chloride 107 mmol/L (98-107); Creatinine, Serum 1.25 mg/dL (0.55-1.02); EST Glomerular Filtration Rate 44 mL/min (>60); Est Glom Filt Rate - Afr Amer 54 mL/min (>60); Globulin 3.5 g/dL (2.2-4.2); Glucose 92 mg/dL (74-106); Potassium 3.9 mmol/L (3.5-5.1); Sodium Level 144 mmol/L (136-145)
[2019-08-30 08:39] LABS: International Normalized Ratio 2.8; Prothrombin Time (Protime)PT. 29.3 SECONDS (11.7-14.9)
== END ==
LOC: OLS.ACH 05:00
PROVIDERS: PCP Preventive Medicine Occupational Medicine; Visit Provider Family Medicine
DX: I48.91 Unspecified atrial fibrillation (principal); R13.12 Dysphagia, oropharyngeal phase
CPT/HCPCS: 36415; 80053; 85027; 85610

== ENCOUNTER → 2019-09-04 05:00 | Outpatient (REF) | payer MEDICARE, OTHER, SELFPAY ==
[2019-09-04 07:26] LABS: Prothrombin Time Fingerstick 20.4 SEC (11.9-14.4)
== END ==
LOC: OLS.ACH 05:00
PROVIDERS: PCP Preventive Medicine Occupational Medicine; Visit Provider Family Medicine
DX: I48.91 Unspecified atrial fibrillation (principal)
CPT/HCPCS: 36416; 85610

== ENCOUNTER → 2019-09-09 05:47 | Outpatient (REF) | payer MEDICARE, OTHER, SELFPAY ==
[2019-09-09 12:10] LABS: Prothrombin Time Fingerstick 22.6 SEC (11.9-14.4)
== END ==
LOC: OLS.ACH 05:47
PROVIDERS: PCP Preventive Medicine Occupational Medicine; Visit Provider Family Medicine
DX: I48.91 Unspecified atrial fibrillation (principal)
CPT/HCPCS: 36416; 85610

== ENCOUNTER → 2019-09-23 04:30 | Outpatient (REF) | payer MEDICARE, OTHER, SELFPAY ==
[2019-09-23 07:46] LABS: Prothrombin Time Fingerstick 24.5 SEC (11.9-14.4)
== END ==
LOC: OLS.ACH 04:30
PROVIDERS: PCP Preventive Medicine Occupational Medicine; Visit Provider Family Medicine
DX: I48.91 Unspecified atrial fibrillation (principal)
CPT/HCPCS: 36416; 85610

== ENCOUNTER → 2019-09-27 06:15 | Outpatient (REF) | payer MEDICARE, OTHER, SELFPAY ==
[2019-09-27 09:06] LABS: International Normalized Ratio 1.6
== END ==
LOC: OLS.ACH 06:15
PROVIDERS: PCP Preventive Medicine Occupational Medicine; Visit Provider Family Medicine
DX: I48.91 Unspecified atrial fibrillation (principal)
CPT/HCPCS: 36415; 85610

== ENCOUNTER → 2019-10-07 05:00 | Outpatient (REF) | payer MEDICARE, OTHER, SELFPAY ==
[2019-10-07 07:00] LABS: Prothrombin Time Fingerstick 23.9 SEC (11.9-14.4)
== END ==
LOC: OLS.ACH 05:00
PROVIDERS: PCP Preventive Medicine Occupational Medicine; Visit Provider Family Medicine
DX: I48.91 Unspecified atrial fibrillation (principal)
CPT/HCPCS: 36416; 85610

== ENCOUNTER → 2019-10-14 05:00 | Outpatient (REF) | payer MEDICARE, OTHER, SELFPAY ==
[2019-10-14 07:32] LABS: Absolute Lymphocyte Count 1.54 X10^3/uL (0.83-4.51); Absolute Neutrophil Count 3.5 X10^3/uL (2.0-7.7); Basophil# 0.06 X10^3/uL; Eosinophil# 0.29 X10^3/uL; Eosinophils% 4.9 % (0-5); Hematocrit 36.9 % (37-47); Hemoglobin 11.4 g/dL (12.0-15.0); Lymphocyte # 1.54 X10^3/ul (4.0); Lymphocyte % 25.9 % (19-41); Mean Corp Hgb Conc 30.9 g/dL (32-36); Mean Corpuscular Volume 87.2 fL (81-99); Mean Platelet Vol. 10.6 fl (6.2-12.0); Monocyte# 0.57 X10^3/uL; Monocyte% 9.6 % (0-10); NRBC Flagged by Analyzer 0 % (0-5); Neutrophil # 3.46 X10^3/uL (2.7-7.7); Neutrophil % 58.3 % (47-70); Platelet Count 197 K/mm3 (150-450); RBC Distribution Width CV 13.5 % (11.6-14.6); RBC Distribution Width SD 43.1 fl (35.1-43.9); Red Blood Count 4.23 M/mm3 (4.2-5.4); White Blood Count 5.9 K/mm3 (4.4-11.0)
[2019-10-14 07:56] LABS: AST(SGOT) 12 U/L (15-37); Alanine Aminotransfer ALT/SGPT 14 U/L (13-56); Albumin, Serum 2.5 g/dL (3.2-5.0); Alkaline Phosphatase 90 U/L (45-117); Anion Gap 4 (5-15); BUN 18 mg/dL (7-18); BUN/Creat Ratio 17.6 RATIO (10-20); Bilirubin, Direct 0.05 mg/dL (0.00-0.30); Calcium,Total 9.4 mg/dL (8.5-10.1); Chloride 106 mmol/L (98-107); Cholesterol 237 mg/dL (200); Creatinine, Serum 1.02 mg/dL (0.55-1.02); EST Glomerular Filtration Rate 56 mL/min (>60); Est Glom Filt Rate - Afr Amer 68 mL/min (>60); Globulin 3.4 g/dL (2.2-4.2); Glucose 95 mg/dL (74-106); High Density Lipoprotein 31 mg/dL; Protein, Total 5.9 g/dL (6.4-8.2); Sodium Level 142 mmol/L (136-145); T4 Total, Thyroxin 9.4 ug/dL (4.8-13.9); Thyroid Stim Hormone (TSH) 2.39 uIU/mL (0.358-3.74); Triglycerides 216 mg/dL; Very Low Density Lipoprotein 43 mg/dL (5-40)
== END ==
LOC: OLS.ACH 05:00
PROVIDERS: PCP Preventive Medicine Occupational Medicine; Visit Provider Family Medicine
DX: F20.9 Schizophrenia, unspecified (principal); J96.10 Chronic respiratory failure, unspecified whether with hypoxia or hypercapnia
CPT/HCPCS: 36415; 80048; 80061; 80076; 84436; 84443; 85025

== ENCOUNTER → 2019-10-28 04:00 | Outpatient (REF) | payer MEDICARE, OTHER, SELFPAY ==
[2019-10-28 07:05] LABS: Prothrombin Time Fingerstick 29.4 SEC (11.9-14.4)
== END ==
LOC: OLS.ACH 04:00
PROVIDERS: PCP Preventive Medicine Occupational Medicine; Visit Provider Family Medicine
DX: I48.91 Unspecified atrial fibrillation (principal)
CPT/HCPCS: 36416; 85610

== ENCOUNTER → 2019-11-25 05:00 | Outpatient (REF) | payer MEDICARE, OTHER, SELFPAY ==
[2019-11-25 09:26] LABS: Prothrombin Time Fingerstick 27.2 SEC (11.9-14.4)
== END ==
LOC: OLS.ACH 05:00
PROVIDERS: PCP Preventive Medicine Occupational Medicine; Visit Provider Family Medicine
DX: I48.91 Unspecified atrial fibrillation (principal)
CPT/HCPCS: 36416; 85610

== ENCOUNTER → 2019-12-23 04:00 | Outpatient (REF) | payer MEDICARE, OTHER, SELFPAY ==
[2019-12-23 10:00] LABS: Prothrombin Time Fingerstick 27.8 SEC (11.9-14.4)
== END ==
LOC: OLS.ACH 04:00
PROVIDERS: PCP Preventive Medicine Occupational Medicine; Referring Provider Family Medicine; Visit Provider Family Medicine
DX: I48.91 Unspecified atrial fibrillation (principal)
CPT/HCPCS: 36416; 85610

== ENCOUNTER → 2020-01-27 04:30 | Outpatient (REF) | payer MEDICARE, OTHER, SELFPAY ==
[2020-01-27 09:15] LABS: International Normalized Ratio 1.9; Prothrombin Time (Protime)PT. 21.2 SECONDS (11.7-14.9)
== END ==
LOC: OLS.ACH 04:30
PROVIDERS: PCP Preventive Medicine Occupational Medicine; Visit Provider Family Medicine
DX: I48.91 Unspecified atrial fibrillation (principal)
CPT/HCPCS: 36415; 85610

== ENCOUNTER → 2020-02-17 04:00 | Outpatient (REF) | payer MEDICARE, OTHER, SELFPAY ==
[2020-02-17 07:46] LABS: Prothrombin Time Fingerstick 28.4 SEC (11.9-14.4)
== END ==
LOC: OLS.ACH 04:00
PROVIDERS: PCP Preventive Medicine Occupational Medicine; Referring Provider Family Medicine; Visit Provider Family Medicine
DX: I48.91 Unspecified atrial fibrillation (principal)
CPT/HCPCS: 36416; 85610

== ENCOUNTER → 2020-03-17 05:00 | Outpatient (REF) | payer MEDICARE, OTHER, SELFPAY ==
[2020-03-17 09:01] LABS: Prothrombin Time Fingerstick 35.7 SEC (11.9-14.4)
== END ==
LOC: OLS.ACH 05:00
PROVIDERS: PCP Preventive Medicine Occupational Medicine; Visit Provider Family Medicine
DX: I48.91 Unspecified atrial fibrillation (principal)
CPT/HCPCS: 36416; 85610

== ENCOUNTER → 2020-03-25 05:00 | Outpatient (REF) | payer MEDICARE, OTHER, SELFPAY | LOC: LABSPEC 05:00 | PROVIDERS: PCP Preventive Medicine Occupational Medicine; Referring Provider Family Medicine; Visit Provider Family Medicine | DX: Z11.59 Encounter for screening for other viral diseases (principal) | CPT/HCPCS: 87635; U0003 ==

== ENCOUNTER → 2020-03-30 04:30 | Outpatient (REF) | payer MEDICARE, OTHER, SELFPAY ==
[2020-03-30 08:20] LABS: Prothrombin Time Fingerstick 35.5 SEC (11.9-14.4)
== END ==
LOC: OLS.ACH 04:30
PROVIDERS: PCP Preventive Medicine Occupational Medicine; Visit Provider Family Medicine
DX: I48.91 Unspecified atrial fibrillation (principal)
CPT/HCPCS: 36416; 85610

== ENCOUNTER → 2020-04-01 05:00 | Outpatient (REF) | payer MEDICARE, OTHER, SELFPAY | LOC: OLS.ACH 05:00 | PROVIDERS: PCP Preventive Medicine Occupational Medicine; Visit Provider Family Medicine | DX: Z11.59 Encounter for screening for other viral diseases (principal) | CPT/HCPCS: 87635; U0003 ==

== ENCOUNTER → 2020-04-06 11:19 | Outpatient (REF) | payer MEDICARE, OTHER, SELFPAY | LOC: OLS.ACH 11:19 | PROVIDERS: PCP Preventive Medicine Occupational Medicine; Visit Provider Family Medicine | DX: Z11.59 Encounter for screening for other viral diseases (principal) | CPT/HCPCS: 87635; U0003 ==

== ENCOUNTER → 2020-04-10 13:07 | Outpatient (REF) | payer MEDICARE, OTHER, SELFPAY | LOC: OLS.ACH 13:07 | PROVIDERS: PCP Preventive Medicine Occupational Medicine; Referring Provider Family Medicine; Visit Provider Family Medicine | DX: Z03.818 Encounter for observation for suspected exposure to other biological agents ruled out (principal) | CPT/HCPCS: 87635; U0003 ==

== ENCOUNTER → 2020-04-13 05:00 | Outpatient (REF) | payer MEDICARE, OTHER, SELFPAY ==
[2020-04-13 09:08] LABS: Absolute Lymphocyte Count 1.68 X10^3/uL (0.83-4.51); Absolute Neutrophil Count 3.3 X10^3/uL (2.0-7.7); Basophil# 0.06 X10^3/uL; Eosinophil# 0.28 X10^3/uL; Eosinophils% 4.8 % (0-5); Hematocrit 37.9 % (37-47); Hemoglobin 11.1 g/dL (12.0-15.0); Lymphocyte # 1.68 X10^3/ul (4.0); Lymphocyte % 28.5 % (19-41); Mean Corp Hgb Conc 29.3 g/dL (32-36); Mean Corpuscular Hgb 26.2 pg (27.0-32.0); Mean Corpuscular Volume 89.4 fL (81-99); Mean Platelet Vol. 10.9 fl (6.2-12.0); Monocyte# 0.52 X10^3/uL; Monocyte% 8.8 % (0-10); NRBC Flagged by Analyzer 0 % (0-5); Neutrophil # 3.34 X10^3/uL (2.7-7.7); Neutrophil % 56.7 % (47-70); Platelet Count 229 K/mm3 (150-450); RBC Distribution Width CV 13.9 % (11.6-14.6); RBC Distribution Width SD 45.2 fl (35.1-43.9); Red Blood Count 4.24 M/mm3 (4.2-5.4); White Blood Count 5.9 K/mm3 (4.4-11.0)
[2020-04-13 09:21] LABS: International Normalized Ratio 2.2; Prothrombin Time (Protime)PT. 23.6 SECONDS (11.7-14.9)
[2020-04-13 09:33] LABS: AST(SGOT) 11 U/L (15-37); Alanine Aminotransfer ALT/SGPT 14 U/L (13-56); Albumin, Serum 2.5 g/dL (3.2-5.0); Alkaline Phosphatase 85 U/L (45-117); Anion Gap 2 (5-15); BUN 21 mg/dL (7-18); BUN/Creat Ratio 19.3 RATIO (10-20); Bilirubin, Direct 0.05 mg/dL (0.00-0.30); Calcium,Total 9.3 mg/dL (8.5-10.1); Chloride 108 mmol/L (98-107); Cholesterol 221 mg/dL (200); Creatinine, Serum 1.09 mg/dL (0.55-1.02); EST Glomerular Filtration Rate 52 mL/min (>60); Est Glom Filt Rate - Afr Amer 63 mL/min (>60); Globulin 3.4 g/dL (2.2-4.2); Glucose 83 mg/dL (74-106); High Density Lipoprotein 36 mg/dL; Potassium 3.8 mmol/L (3.5-5.1); Protein, Total 5.9 g/dL (6.4-8.2); Sodium Level 142 mmol/L (136-145); T4 Total, Thyroxin 9.6 ug/dL (4.8-13.9); Triglycerides 215 mg/dL; Very Low Density Lipoprotein 43 mg/dL (5-40)
== END ==
LOC: OLS.ACH 05:00
PROVIDERS: PCP Preventive Medicine Occupational Medicine; Referring Provider Family Medicine; Visit Provider Family Medicine
DX: F20.9 Schizophrenia, unspecified (principal); J96.10 Chronic respiratory failure, unspecified whether with hypoxia or hypercapnia; I48.91 Unspecified atrial fibrillation; Z79.899 Other long term (current) drug therapy
CPT/HCPCS: 36415; 80048; 80061; 80076; 84436; 84443; 85025; 85610

== ENCOUNTER → 2020-04-13 08:00 | Outpatient (REF) | payer MEDICARE, OTHER, SELFPAY | LOC: OLS.ACH 08:00 | PROVIDERS: PCP Preventive Medicine Occupational Medicine; Visit Provider Family Medicine | DX: Z03.818 Encounter for observation for suspected exposure to other biological agents ruled out (principal) | CPT/HCPCS: 87635; U0003 ==

== ENCOUNTER → 2020-04-17 11:11 | Outpatient (REF) | payer MEDICARE, OTHER, SELFPAY | LOC: OLS.ACH 11:11 | PROVIDERS: PCP Preventive Medicine Occupational Medicine; Referring Provider Family Medicine; Visit Provider Family Medicine | DX: Z03.818 Encounter for observation for suspected exposure to other biological agents ruled out (principal) | CPT/HCPCS: 87635; U0003 ==

== ENCOUNTER → 2020-04-20 14:18 | Outpatient (REF) | payer MEDICARE, OTHER, SELFPAY | LOC: OLS.ACH 14:18 | PROVIDERS: PCP Preventive Medicine Occupational Medicine; Referring Provider Family Medicine; Visit Provider Family Medicine | DX: Z03.818 Encounter for observation for suspected exposure to other biological agents ruled out (principal) | CPT/HCPCS: 87635; U0003 ==

== ENCOUNTER → 2020-04-24 09:26 | Outpatient (REF) | payer MEDICARE, OTHER, SELFPAY | LOC: OLS.ACH 09:26 | PROVIDERS: Referring Provider Family Medicine; Visit Provider Family Medicine | DX: Z03.818 Encounter for observation for suspected exposure to other biological agents ruled out (principal) | CPT/HCPCS: 87635; U0003 ==

== ENCOUNTER → 2020-04-28 09:22 | Outpatient (REF) | payer MEDICARE, OTHER, SELFPAY | LOC: OLS.ACH 09:22 | PROVIDERS: Referring Provider Family Medicine; Visit Provider Family Medicine | DX: Z03.818 Encounter for observation for suspected exposure to other biological agents ruled out (principal) | CPT/HCPCS: 87635; U0003 ==

== ENCOUNTER → 2020-05-01 10:58 | Outpatient (REF) | payer MEDICARE, OTHER, SELFPAY | LOC: OLS.ACH 10:58 | PROVIDERS: Visit Provider Family Medicine | DX: Z03.818 Encounter for observation for suspected exposure to other biological agents ruled out (principal) | CPT/HCPCS: 87635; U0003 ==

== ENCOUNTER → 2020-05-05 | Outpatient (REF) | payer MEDICARE, OTHER, SELFPAY | LOC: OLS.ACH | PROVIDERS: Referring Provider Family Medicine; Visit Provider Family Medicine | DX: Z03.818 Encounter for observation for suspected exposure to other biological agents ruled out (principal) | CPT/HCPCS: 87635; U0003 ==

== ENCOUNTER → 2020-05-11 05:00 | Outpatient (REF) | payer MEDICARE, OTHER, SELFPAY ==
[2020-05-11 08:56] LABS: Prothrombin Time Fingerstick 31.4 SEC (11.9-14.4)
== END ==
LOC: OLS.ACH 05:00
PROVIDERS: Visit Provider Family Medicine
DX: I48.91 Unspecified atrial fibrillation (principal)
CPT/HCPCS: 36416; 85610

== ENCOUNTER → 2020-05-12 07:37 | Outpatient (REF) | payer MEDICARE, OTHER, SELFPAY | LOC: OLS.ACH 07:37 | PROVIDERS: Referring Provider Family Medicine; Visit Provider Family Medicine | DX: Z03.818 Encounter for observation for suspected exposure to other biological agents ruled out (principal) | CPT/HCPCS: 87635; U0003 ==

== ENCOUNTER → 2020-05-14 05:00 | Outpatient (REF) | payer MEDICARE, OTHER, SELFPAY ==
[2020-05-14 08:26] LABS: Absolute Lymphocyte Count 1.43 X10^3/uL (0.83-4.51); Absolute Neutrophil Count 8.6 X10^3/uL (2.0-7.7); Basophil# 0.04 X10^3/uL; Basophil% 0.4 % (0-1); Eosinophil# 0.04 X10^3/uL; Eosinophils% 0.4 % (0-5); Hematocrit 36.7 % (37-47); Hemoglobin 10.9 g/dL (12.0-15.0); Lymphocyte # 1.43 X10^3/ul (4.0); Lymphocyte % 12.6 % (19-41); Mean Corp Hgb Conc 29.7 g/dL (32-36); Mean Corpuscular Hgb 26.5 pg (27.0-32.0); Mean Corpuscular Volume 89.3 fL (81-99); Mean Platelet Vol. 11.4 fl (6.2-12.0); Monocyte# 1.25 X10^3/uL; NRBC Flagged by Analyzer 0 % (0-5); Neutrophil # 8.58 X10^3/uL (2.7-7.7); Neutrophil % 75.2 % (47-70); Platelet Count 253 K/mm3 (150-450); RBC Distribution Width CV 14.4 % (11.6-14.6); RBC Distribution Width SD 47.1 fl (35.1-43.9); Red Blood Count 4.11 M/mm3 (4.2-5.4); White Blood Count 11.4 K/mm3 (4.4-11.0)
[2020-05-14 08:33] LABS: Anion Gap 5 (5-15); BUN 28 mg/dL (7-18); BUN/Creat Ratio 18.9 RATIO (10-20); Chloride 115 mmol/L (98-107); Creatinine, Serum 1.48 mg/dL (0.55-1.02); EST Glomerular Filtration Rate 36 mL/min (>60); Est Glom Filt Rate - Afr Amer 44 mL/min (>60); Glucose 111 mg/dL (74-106); Potassium 4.3 mmol/L (3.5-5.1); Sodium Level 148 mmol/L (136-145)
== END ==
LOC: OLS.ACH 05:00
PROVIDERS: Referring Provider Family Medicine; Visit Provider Family Medicine
DX: R05 Cough (principal); R50.9 Fever, unspecified
CPT/HCPCS: 36415; 80048; 85025

== ENCOUNTER → 2020-05-18 04:00 | Outpatient (REF) | payer MEDICARE, OTHER, SELFPAY ==
[2020-05-18 07:11] LABS: Prothrombin Time Fingerstick 50.6 SEC (11.9-14.4)
[2020-05-18 07:31] LABS: Prothrombin Time (Protime)PT. 30.4 SECONDS (11.7-14.9)
== END ==
LOC: OLS.ACH 04:00
PROVIDERS: Referring Provider Family Medicine; Visit Provider Family Medicine
DX: Z79.01 Long term (current) use of anticoagulants (principal)
CPT/HCPCS: 36416; 85610

== ENCOUNTER → 2020-05-19 12:48 | Outpatient (REF) | payer MEDICARE, OTHER, SELFPAY | LOC: OLS.ACH 12:48 | PROVIDERS: Visit Provider Family Medicine | DX: Z03.818 Encounter for observation for suspected exposure to other biological agents ruled out (principal) | CPT/HCPCS: 87635; U0003 ==

== ENCOUNTER → 2020-05-21 05:00 | Outpatient (REF) | payer MEDICARE, OTHER, SELFPAY ==
[2020-05-21 08:10] LABS: Prothrombin Time Fingerstick 49.9 SEC (11.9-14.4)
[2020-05-21 08:46] LABS: International Normalized Ratio 3.3; Prothrombin Time (Protime)PT. 33.4 SECONDS (11.7-14.9)
== END ==
LOC: OLS.ACH 05:00
PROVIDERS: Referring Provider Family Medicine; Visit Provider Family Medicine
DX: Z79.01 Long term (current) use of anticoagulants (principal)
CPT/HCPCS: 36416; 85610

== ENCOUNTER → 2020-05-26 11:19 | Outpatient (REF) | payer MEDICARE, OTHER, SELFPAY | LOC: OLS.ACH 11:19 | PROVIDERS: PCP Family Medicine; Referring Provider Family Medicine; Visit Provider Family Medicine | DX: Z03.818 Encounter for observation for suspected exposure to other biological agents ruled out (principal) | CPT/HCPCS: 87635; U0003 ==

== ENCOUNTER → 2020-05-29 22:15 | Outpatient (REF) | payer MEDICARE, OTHER, SELFPAY ==
[2020-05-29 23:41] LABS: Prothrombin Time (Protime)PT. 48.1 SECONDS (11.7-14.9)
[2020-05-30] LABS: International Normalized Ratio 5.2
== END ==
LOC: OLS.ACH 22:15
PROVIDERS: PCP Family Medicine; Referring Provider Family Medicine; Visit Provider Family Medicine
DX: Z79.01 Long term (current) use of anticoagulants (principal)
CPT/HCPCS: 85610

== ENCOUNTER → 2020-05-31 07:50 | Outpatient (REF) | payer MEDICARE, OTHER, SELFPAY ==
[2020-05-31 09:26] LABS: Prothrombin Time (Protime)PT. 46.5 SECONDS (11.7-14.9)
== END ==
LOC: OLS.ACH 07:50
PROVIDERS: PCP Family Medicine; Referring Provider Family Medicine; Visit Provider Family Medicine
DX: Z86.718 Personal history of other venous thrombosis and embolism (principal)
CPT/HCPCS: 36415; 85610

== ENCOUNTER → 2020-06-01 05:00 | Outpatient (REF) | payer MEDICARE, OTHER, SELFPAY ==
[2020-06-01 08:51] LABS: Prothrombin Time (Protime)PT. 40.6 SECONDS (11.7-14.9)
[2020-06-01 09:07] LABS: International Normalized Ratio 4.2
== END ==
LOC: OLS.ACH 05:00
PROVIDERS: PCP Family Medicine; Referring Provider Family Medicine; Visit Provider Family Medicine
DX: Z79.01 Long term (current) use of anticoagulants (principal)
CPT/HCPCS: 36415; 85610

== ENCOUNTER → 2020-06-03 10:25 | Outpatient (REF) | payer MEDICARE, OTHER, SELFPAY ==
[2020-06-03 11:38] LABS: International Normalized Ratio 2.6; Prothrombin Time (Protime)PT. 27.7 SECONDS (11.7-14.9)
== END ==
LOC: OLS.ACH 10:25
PROVIDERS: PCP Family Medicine; Visit Provider Family Medicine
DX: Z79.01 Long term (current) use of anticoagulants (principal)
CPT/HCPCS: 36415; 85610

== ENCOUNTER → 2020-06-09 10:08 | Outpatient (REF) | payer MEDICARE, OTHER, SELFPAY | LOC: OLS.ACH 10:08 | PROVIDERS: PCP Family Medicine; Referring Provider Family Medicine; Visit Provider Family Medicine | DX: Z03.818 Encounter for observation for suspected exposure to other biological agents ruled out (principal) | CPT/HCPCS: 87635; U0003 ==

== ENCOUNTER → 2020-06-11 05:00 | Outpatient (REF) | payer MEDICARE, OTHER, SELFPAY ==
[2020-06-11 08:28] LABS: Prothrombin Time (Protime)PT. 49.6 SECONDS (11.7-14.9)
[2020-06-11 08:41] LABS: International Normalized Ratio 5.4
== END ==
LOC: OLS.ACH 05:00
PROVIDERS: PCP Family Medicine; Referring Provider Family Medicine; Visit Provider Family Medicine
DX: I48.91 Unspecified atrial fibrillation (principal)
CPT/HCPCS: 36415; 85610

== ENCOUNTER → 2020-06-12 05:00 | Outpatient (REF) | payer MEDICARE, OTHER, SELFPAY ==
[2020-06-12 06:55] LABS: International Normalized Ratio 6.2
== END ==
LOC: OLS.ACH 05:00
PROVIDERS: PCP Family Medicine; Visit Provider Family Medicine
DX: Z79.01 Long term (current) use of anticoagulants (principal)
CPT/HCPCS: 36415; 85610

== ENCOUNTER → 2020-06-15 05:00 | Outpatient (REF) | payer MEDICARE, OTHER, SELFPAY ==
[2020-06-15 08:40] LABS: AST(SGOT) 9 U/L (15-37); Alanine Aminotransfer ALT/SGPT 14 U/L (13-56); Cholesterol 118 mg/dL (200); High Density Lipoprotein 36 mg/dL; Triglycerides 123 mg/dL; Very Low Density Lipoprotein 25 mg/dL (5-40)
[2020-06-15 08:50] LABS: International Normalized Ratio 2.3; Prothrombin Time (Protime)PT. 24.9 SECONDS (11.7-14.9)
== END ==
LOC: OLS.ACH 05:00
PROVIDERS: PCP Family Medicine; Referring Provider Family Medicine; Visit Provider Family Medicine
DX: E78.5 Hyperlipidemia, unspecified (principal); Z79.01 Long term (current) use of anticoagulants
CPT/HCPCS: 36415; 80061; 84450; 84460; 85610

== ENCOUNTER → 2020-06-22 05:15 | Outpatient (REF) | payer MEDICARE, OTHER, SELFPAY ==
[2020-06-22 08:29] LABS: International Normalized Ratio 1.8; Prothrombin Time (Protime)PT. 20.6 SECONDS (11.7-14.9)
== END ==
LOC: OLS.ACH 05:15
PROVIDERS: PCP Family Medicine; Referring Provider Family Medicine; Visit Provider Family Medicine
DX: Z79.01 Long term (current) use of anticoagulants (principal)
CPT/HCPCS: 36415; 85610

== ENCOUNTER → 2020-06-23 08:24 | Outpatient (REF) | payer MEDICARE, OTHER, SELFPAY | LOC: OLS.ACH 08:24 | PROVIDERS: PCP Family Medicine; Referring Provider Family Medicine; Visit Provider Family Medicine | DX: Z03.818 Encounter for observation for suspected exposure to other biological agents ruled out (principal) | CPT/HCPCS: 87635; U0003 ==

== ENCOUNTER → 2020-07-01 05:07 | Outpatient (REF) | payer MEDICARE, OTHER, SELFPAY ==
[2020-07-01 09:28] LABS: International Normalized Ratio 1.8; Prothrombin Time (Protime)PT. 20.4 SECONDS (11.7-14.9)
== END ==
LOC: OLS.ACH 05:07
PROVIDERS: PCP Family Medicine; Referring Provider Family Medicine; Visit Provider Family Medicine
DX: Z79.01 Long term (current) use of anticoagulants (principal)
CPT/HCPCS: 36415; 85610

== ENCOUNTER → 2020-07-07 09:00 | Outpatient (REF) | payer MEDICARE, OTHER, SELFPAY | LOC: OLS.ACH 09:00 | PROVIDERS: PCP Family Medicine; Referring Provider Family Medicine; Visit Provider Family Medicine | DX: Z03.818 Encounter for observation for suspected exposure to other biological agents ruled out (principal) | CPT/HCPCS: 87635; U0003 ==

== ENCOUNTER → 2020-07-13 04:00 | Outpatient (REF) | payer MEDICARE, OTHER, SELFPAY ==
[2020-07-13 08:54] LABS: Prothrombin Time (Protime)PT. 22.6 SECONDS (11.7-14.9)
== END ==
LOC: OLS.ACH 04:00
PROVIDERS: PCP Family Medicine; Referring Provider Family Medicine; Visit Provider Family Medicine
DX: Z79.01 Long term (current) use of anticoagulants (principal)
CPT/HCPCS: 36415; 85610

== ENCOUNTER → 2020-07-21 16:58 | Outpatient (REF) | payer MEDICARE, OTHER, SELFPAY | LOC: OLS.ACH 16:58 | PROVIDERS: PCP Family Medicine; Referring Provider Family Medicine; Visit Provider Family Medicine | DX: Z03.818 Encounter for observation for suspected exposure to other biological agents ruled out (principal) | CPT/HCPCS: 87635; U0005; U0003 ==

== ENCOUNTER → 2020-08-04 10:02 | Outpatient (REF) | payer MEDICARE, OTHER, SELFPAY | LOC: OLS.ACH 10:02 | PROVIDERS: PCP Family Medicine; Referring Provider Family Medicine; Visit Provider Family Medicine | DX: Z03.818 Encounter for observation for suspected exposure to other biological agents ruled out (principal) | CPT/HCPCS: 87635; U0003 ==

== ENCOUNTER → 2020-08-10 04:00 | Outpatient (REF) | payer MEDICARE, OTHER, SELFPAY ==
[2020-08-10 08:35] LABS: International Normalized Ratio 2.8; Prothrombin Time (Protime)PT. 28.8 SECONDS (11.7-14.9)
== END ==
LOC: OLS.ACH 04:00
PROVIDERS: PCP Family Medicine; Referring Provider Family Medicine; Visit Provider Family Medicine
DX: Z79.01 Long term (current) use of anticoagulants (principal)
CPT/HCPCS: 36415; 85610

== ENCOUNTER → 2020-09-01 12:26 | Outpatient (REF) | payer MEDICARE, OTHER, SELFPAY | LOC: OLS.ACH 12:26 | PROVIDERS: PCP Family Medicine; Referring Provider Family Medicine; Visit Provider Family Medicine | DX: Z03.818 Encounter for observation for suspected exposure to other biological agents ruled out (principal) | CPT/HCPCS: 87635; U0005; U0003 ==

== ENCOUNTER → 2020-09-07 05:00 | Outpatient (REF) | payer MEDICARE, OTHER, SELFPAY ==
[2020-09-07 08:55] LABS: International Normalized Ratio 1.8; Prothrombin Time (Protime)PT. 20.2 SECONDS (11.7-14.9)
== END ==
LOC: OLS.ACH 05:00
PROVIDERS: PCP Family Medicine; Visit Provider Family Medicine
DX: Z79.01 Long term (current) use of anticoagulants (principal)
CPT/HCPCS: 36415; 85610

== ENCOUNTER → 2020-09-15 10:00 | Outpatient (REF) | payer MEDICARE, OTHER, SELFPAY | LOC: OLS.ACH 10:00 | PROVIDERS: PCP Family Medicine; Visit Provider Family Medicine | DX: Z03.818 Encounter for observation for suspected exposure to other biological agents ruled out (principal) | CPT/HCPCS: 87635; U0005; U0003 ==

== ENCOUNTER → 2020-09-28 04:00 | Outpatient (REF) | payer MEDICARE, OTHER, SELFPAY ==
[2020-09-28 07:16] LABS: International Normalized Ratio 1.8; Prothrombin Time (Protime)PT. 20.7 SECONDS (11.7-14.9)
== END ==
LOC: OLS.ACH 04:00
PROVIDERS: PCP Family Medicine; Visit Provider Family Medicine
DX: I48.91 Unspecified atrial fibrillation (principal); Z86.718 Personal history of other venous thrombosis and embolism
CPT/HCPCS: 36415; 85610

== ENCOUNTER → 2020-10-05 04:00 | Outpatient (REF) | payer MEDICARE, OTHER, SELFPAY ==
[2020-10-05 07:26] LABS: International Normalized Ratio 2.2; Prothrombin Time (Protime)PT. 23.3 SECONDS (11.7-14.9)
== END ==
LOC: OLS.ACH 04:00
PROVIDERS: PCP Family Medicine; Referring Provider Family Medicine; Visit Provider Family Medicine
DX: Z79.01 Long term (current) use of anticoagulants (principal)
CPT/HCPCS: 36415; 85610

== ENCOUNTER → 2020-10-12 05:00 | Outpatient (REF) | payer MEDICARE, OTHER, SELFPAY ==
[2020-10-12 07:56] LABS: Absolute Lymphocyte Count 1.76 X10^3/uL (0.83-4.51); Absolute Neutrophil Count 2.8 X10^3/uL (2.0-7.7); Basophil# 0.07 X10^3/uL; Basophil% 1.3 % (0-1); Eosinophils% 5.5 % (0-5); Hematocrit 37.8 % (37-47); Hemoglobin 11.6 g/dL (12.0-15.0); Lymphocyte # 1.76 X10^3/ul (4.0); Lymphocyte % 32.1 % (19-41); Mean Corp Hgb Conc 30.7 g/dL (32-36); Mean Corpuscular Hgb 26.9 pg (27.0-32.0); Mean Corpuscular Volume 87.5 fL (81-99); Mean Platelet Vol. 10.9 fl (6.2-12.0); Monocyte# 0.53 X10^3/uL; Monocyte% 9.7 % (0-10); NRBC Flagged by Analyzer 0 % (0-5); Platelet Count 214 K/mm3 (150-450); RBC Distribution Width CV 13.2 % (11.6-14.6); RBC Distribution Width SD 41.9 fl (35.1-43.9); Red Blood Count 4.32 M/mm3 (4.2-5.4); White Blood Count 5.5 K/mm3 (4.4-11.0)
[2020-10-12 08:39] LABS: AST(SGOT) 15 U/L (15-37); Alanine Aminotransfer ALT/SGPT 17 U/L (13-56); Albumin, Serum 2.5 g/dL (3.2-5.0); Alkaline Phosphatase 98 U/L (45-117); Anion Gap 4 (5-15); BUN 17 mg/dL (7-18); BUN/Creat Ratio 15.7 RATIO (10-20); Bilirubin, Direct < 0.05 mg/dL (0.00-0.30); Calcium,Total 9.6 mg/dL (8.5-10.1); Chloride 107 mmol/L (98-107); Cholesterol 170 mg/dL (200); Creatinine, Serum 1.08 mg/dL (0.55-1.02); EST Glomerular Filtration Rate 52 mL/min (>60); Est Glom Filt Rate - Afr Amer 63 mL/min (>60); Globulin 3.2 g/dL (2.2-4.2); Glucose 87 mg/dL (74-106); High Density Lipoprotein 35 mg/dL; Potassium 3.9 mmol/L (3.5-5.1); Protein, Total 5.7 g/dL (6.4-8.2); Sodium Level 143 mmol/L (136-145); T4 Total, Thyroxin 8.1 ug/dL (4.8-13.9); Thyroid Stim Hormone (TSH) 3.08 uIU/mL (0.358-3.74); Triglycerides 185 mg/dL; Very Low Density Lipoprotein 37 mg/dL (5-40)
== END ==
LOC: OLS.ACH 05:00
PROVIDERS: PCP Family Medicine; Referring Provider Family Medicine; Visit Provider Family Medicine
DX: I10 Essential (primary) hypertension (principal); E87.6 Hypokalemia; I73.9 Peripheral vascular disease, unspecified; E03.9 Hypothyroidism, unspecified; E78.00 Pure hypercholesterolemia, unspecified
CPT/HCPCS: 36415; 80048; 80061; 80076; 84436; 84443; 85025

== ENCOUNTER → 2020-10-19 04:00 | Outpatient (REF) | payer MEDICARE, OTHER, SELFPAY ==
[2020-10-19 07:03] LABS: International Normalized Ratio 2.5; Prothrombin Time (Protime)PT. 26.3 SECONDS (11.7-14.9)
== END ==
LOC: OLS.ACH 04:00
PROVIDERS: PCP Family Medicine; Visit Provider Family Medicine
DX: I48.91 Unspecified atrial fibrillation (principal)
CPT/HCPCS: 36415; 85610

== ENCOUNTER → 2020-11-02 04:00 | Outpatient (REF) | payer MEDICARE, OTHER, SELFPAY ==
[2020-11-02 07:22] LABS: International Normalized Ratio 2.1; Prothrombin Time (Protime)PT. 22.5 SECONDS (11.7-14.9)
== END ==
LOC: OLS.ACH 04:00
PROVIDERS: PCP Family Medicine; Referring Provider Family Medicine; Visit Provider Family Medicine
DX: I48.91 Unspecified atrial fibrillation (principal)
CPT/HCPCS: 36415; 85610

== ENCOUNTER → 2020-11-30 04:00 | Outpatient (REF) | payer MEDICARE, OTHER, SELFPAY ==
[2020-11-30 07:42] LABS: International Normalized Ratio 2.3; Prothrombin Time (Protime)PT. 24.4 SECONDS (11.7-14.9)
== END ==
LOC: OLS.ACH 04:00
PROVIDERS: PCP Family Medicine; Visit Provider Family Medicine
DX: I48.91 Unspecified atrial fibrillation (principal)
CPT/HCPCS: 36415; 85610

== ENCOUNTER → 2020-12-28 04:00 | Outpatient (REF) | payer MEDICARE, OTHER, SELFPAY ==
[2020-12-28 07:50] LABS: International Normalized Ratio 2.2; Prothrombin Time (Protime)PT. 23.5 SECONDS (11.7-14.9)
== END ==
LOC: OLS.ACH 04:00
PROVIDERS: PCP Family Medicine; Visit Provider Family Medicine
DX: Z86.718 Personal history of other venous thrombosis and embolism (principal)
CPT/HCPCS: 36415; 85610

== ENCOUNTER → 2021-01-25 05:00 | Outpatient (REF) | payer MEDICARE, OTHER, SELFPAY ==
[2021-01-25 08:31] LABS: INR Fingerstick 2.8; Prothrombin Time Fingerstick 31.4 SEC (11.9-14.4)
== END ==
LOC: OLS.ACH 05:00
PROVIDERS: PCP Family Medicine; Visit Provider Family Medicine
DX: I48.91 Unspecified atrial fibrillation (principal)
CPT/HCPCS: 36416; 85610

== ENCOUNTER → 2021-02-22 04:00 | Outpatient (REF) | payer MEDICARE, OTHER, SELFPAY ==
[2021-02-22 08:23] LABS: International Normalized Ratio 2.5; Prothrombin Time (Protime)PT. 26.4 SECONDS (11.7-14.9)
== END ==
LOC: OLS.ACH 04:00
PROVIDERS: PCP Family Medicine; Referring Provider Family Medicine; Visit Provider Family Medicine
DX: I48.91 Unspecified atrial fibrillation (principal)
CPT/HCPCS: 36415; 85610

== ENCOUNTER → 2021-03-22 04:00 | Outpatient (REF) | payer MEDICARE, OTHER, SELFPAY ==
[2021-03-22 07:38] LABS: International Normalized Ratio 2.8; Prothrombin Time (Protime)PT. 29.1 SECONDS (11.7-14.9)
== END ==
LOC: OLS.ACH 04:00
PROVIDERS: PCP Family Medicine; Visit Provider Family Medicine
DX: I48.91 Unspecified atrial fibrillation (principal)
CPT/HCPCS: 36415; 85610

== ENCOUNTER → 2021-03-29 05:00 | Outpatient (REF) | payer MEDICARE, OTHER, SELFPAY ==
[2021-03-29 08:49] LABS: Absolute Lymphocyte Count 1.76 X10^3/uL (0.83-4.51); Absolute Neutrophil Count 3.3 X10^3/uL (2.0-7.7); Basophil# 0.05 X10^3/uL; Basophil% 0.8 % (0-1); Eosinophil# 0.24 X10^3/uL; Hemoglobin 11.8 g/dL (12.0-15.0); Lymphocyte # 1.76 X10^3/ul (0.83-4.51); Lymphocyte % 29.3 % (19-41); Mean Corp Hgb Conc 31.1 g/dL (32-36); Mean Corpuscular Hgb 27.6 pg (27.0-32.0); Mean Corpuscular Volume 88.8 fL (81-99); Mean Platelet Vol. 11.2 fl (6.2-12.0); NRBC Flagged by Analyzer 0 % (0-5); Neutrophil # 3.34 X10^3/uL (2.7-7.7); Neutrophil % 55.7 % (47-70); Platelet Count 216 K/mm3 (150-450); RBC Distribution Width CV 13.4 % (11.6-14.6); RBC Distribution Width SD 43.8 fl (35.1-43.9); Red Blood Count 4.28 M/mm3 (4.2-5.4)
[2021-03-29 09:18] LABS: AST(SGOT) 15 U/L (15-37); Alanine Aminotransfer ALT/SGPT 18 U/L (13-56); Albumin, Serum 2.1 g/dL (3.2-5.0); Alkaline Phosphatase 90 U/L (45-117); Anion Gap 3 (5-15); BUN 16 mg/dL (7-18); BUN/Creat Ratio 15.2 RATIO (10-20); Bilirubin, Direct < 0.05 mg/dL (0.00-0.30); Calcium,Total 9.2 mg/dL (8.5-10.1); Chloride 109 mmol/L (98-107); Cholesterol 179 mg/dL (200); Creatinine, Serum 1.05 mg/dL (0.55-1.02); EST Glomerular Filtration Rate 54 mL/min (>60); Est Glom Filt Rate - Afr Amer 65 mL/min (>60); Globulin 3.5 g/dL (2.2-4.2); Glucose 89 mg/dL (74-106); High Density Lipoprotein 30 mg/dL; Potassium 4.1 mmol/L (3.5-5.1); Protein, Total 5.6 g/dL (6.4-8.2); Sodium Level 142 mmol/L (136-145); T4 Total, Thyroxin 9.1 ug/dL (4.8-13.9); Thyroid Stim Hormone (TSH) 3.01 uIU/mL (0.358-3.74); Triglycerides 187 mg/dL; Very Low Density Lipoprotein 37 mg/dL (5-40)
== END ==
LOC: OLS.ACH 05:00
PROVIDERS: PCP Family Medicine; Visit Provider Family Medicine
DX: E03.9 Hypothyroidism, unspecified (principal); E87.6 Hypokalemia; I73.9 Peripheral vascular disease, unspecified; E78.00 Pure hypercholesterolemia, unspecified
CPT/HCPCS: 36415; 80048; 80061; 80076; 84436; 84443; 85025

== ENCOUNTER → 2021-04-19 04:00 | Outpatient (REF) | payer MEDICARE, OTHER, SELFPAY ==
[2021-04-19 08:24] LABS: International Normalized Ratio 2.6; Prothrombin Time (Protime)PT. 27.2 SECONDS (11.7-14.9)
== END ==
LOC: OLS.ACH 04:00
PROVIDERS: PCP Family Medicine; Visit Provider Family Medicine
DX: I48.91 Unspecified atrial fibrillation (principal)
CPT/HCPCS: 36415; 85610

== ENCOUNTER → 2021-05-17 04:00 | Outpatient (REF) | payer MEDICARE, OTHER, SELFPAY ==
[2021-05-17 07:26] LABS: International Normalized Ratio 2.6; Prothrombin Time (Protime)PT. 27.2 SECONDS (11.7-14.9)
== END ==
LOC: OLS.ACH 04:00
PROVIDERS: PCP Family Medicine; Visit Provider Family Medicine
DX: I48.91 Unspecified atrial fibrillation (principal)
CPT/HCPCS: 36415; 85610

== ENCOUNTER → 2021-06-06 10:36 | Outpatient (REF) | payer MEDICARE, OTHER, SELFPAY ==
[2021-06-06 11:23] LABS: Absolute Lymphocyte Count 0.98 X10^3/uL (0.83-4.51); Absolute Neutrophil Count 4.5 X10^3/uL (2.0-7.7); Basophil# 0.05 X10^3/uL; Basophil% 0.8 % (0-1); Eosinophil# 0.08 X10^3/uL; Eosinophils% 1.2 % (0-5); Hematocrit 36.5 % (37-47); Lymphocyte # 0.98 X10^3/ul (0.83-4.51); Lymphocyte % 15.3 % (19-41); Mean Corp Hgb Conc 30.1 g/dL (32-36); Mean Corpuscular Hgb 26.7 pg (27.0-32.0); Mean Corpuscular Volume 88.6 fL (81-99); Mean Platelet Vol. 10.5 fl (6.2-12.0); Monocyte# 0.75 X10^3/uL; Monocyte% 11.7 % (0-10); NRBC Flagged by Analyzer 0 % (0-5); Neutrophil # 4.53 X10^3/uL (2.7-7.7); Neutrophil % 70.7 % (47-70); Platelet Count 220 K/mm3 (150-450); RBC Distribution Width CV 13.8 % (11.6-14.6); RBC Distribution Width SD 44.8 fl (35.1-43.9); Red Blood Count 4.12 M/mm3 (4.2-5.4); White Blood Count 6.4 K/mm3 (4.4-11.0)
[2021-06-06 11:40] LABS: Anion Gap 4 (5-15); BUN 18 mg/dL (7-18); BUN/Creat Ratio 13.6 RATIO (10-20); Calcium,Total 9.6 mg/dL (8.5-10.1); Chloride 110 mmol/L (98-107); Creatinine, Serum 1.32 mg/dL (0.55-1.02); EST Glomerular Filtration Rate 41 mL/min (>60); Est Glom Filt Rate - Afr Amer 50 mL/min (>60); Glucose 128 mg/dL (74-106); Potassium 3.8 mmol/L (3.5-5.1); Sodium Level 144 mmol/L (136-145)
== END ==
LOC: OLS.ACH 10:36
PROVIDERS: PCP Family Medicine; Visit Provider Family Medicine
DX: U07.1 COVID-19 (principal); R50.9 Fever, unspecified
CPT/HCPCS: 80048; 85025

== ENCOUNTER → 2021-06-09 05:00 | Outpatient (REF) | payer MEDICARE, OTHER, SELFPAY ==
[2021-06-09 09:41] LABS: International Normalized Ratio 2.4; Prothrombin Time (Protime)PT. 25.4 SECONDS (11.7-14.9)
== END ==
LOC: OLS.ACH 05:00
PROVIDERS: PCP Family Medicine; Visit Provider Family Medicine
DX: I48.91 Unspecified atrial fibrillation (principal)
CPT/HCPCS: 85610

== ENCOUNTER 2021-06-13 20:05 | Inpatient (IN) | payer MEDICARE, OTHER, SELFPAY ==
[2021-06-13] VITALS (7 sets, daily range): BP systolic 135–155; BP diastolic 64–86; PULSE 73–91; RESP 15–31; TEMP 36.5–36.9; O2SAT 88–96; BMI 31.8; BMI 34.0
--- NOTE | 2021-06-13 20:22 | RAD_ITS ---
STUDY: X-RAY CHEST REASON FOR EXAM: Female, 80 years old. Fever and cough TECHNIQUE: Single AP portable view of the chest. COMPARISON: 05/25/2017 FINDINGS: EKG leads overlie the chest Lungs are expanded with superimposed interstitial and airspace opacifications. Findings suggest Covid pneumonia, but can also be seen with multifocal pneumonitis or drug interaction/toxicity. Normal size heart. Normal mediastinum and zulema. Normal visualized pulmonary arteries. There is atherosclerotic calcification of the aortic arch with tortuosity. There are diffuse degenerative changes of the visualized thoracic spine. There is degenerative osteoarthritis of the bilateral shoulders. There is no demonstrated abnormality of the visualized soft tissue structures of the upper abdomen. RAD/Chest 1 View (Portable) IMPRESSION: Interstitial and airspace opacifications without effusions. Differential as described above. Follow-up recommended to assure resolution Electronically Signed: Luis Duff MD at 21:17 EST , Service support ,
--- NOTE | 2021-06-13 20:22 | EKG12_ITS ---
Test Reason : SOB Blood Pressure : / mmHG Vent. Rate : 087 BPM Atrial Rate : 087 BPM P-R Int : 188 ms QRS Dur : 080 ms QT Int : 332 ms P-R-T Axes : 013 016 030 degrees QTc Int : 399 ms Normal sinus rhythm Normal ECG Confirmed by ALEXIS FREEMAN, ОЛЕГ ([id number]), digital editor ELROY SAUER ([id number]) on 06/15/2021 10:05:15 AM Referred By: ANNI Confirmed By:ОЛЕГ ESPINOZA MD
--- NOTE | 2021-06-13 20:39 | EDS_ITS ---
HPI History of Present Illness Chief Complaint: Shortness of Breath Informant: PCP and SNF Narrative Narrative: Patient is a 80-year-old female presenting from nursing facility for worsening hypoxia in the setting of COVID-19 infection. Patient had a positive test on 06/06. She does not recall when her symptoms started. Patient is a poor historian. I am not sure what her baseline is. Patient per report was hypoxic on 3 L which is why she was sent to the emergency room. Patient currently feels short of breath but denies any other complaints. Patient has had her Covid vaccines. [facility] Medical History Afib Anemia Anxiety disorder Chronic respiratory disease Coordination impairment COPD (chronic obstructive pulmonary disease) Depressed affect Diabetes Dysphagia Emphysema, unspecified Gait abnormality GERD (gastroesophageal reflux disease) Hypertension Hypothyroidism Osteoporosis PVD (peripheral vascular disease) Sarcoidosis of lung Schizophrenia Sleep apnea Weakness Home Medications atorvastatin [Lipitor] 10 mg PO DAILY 06/13/21 [History Last Taken Unknown] dexamethasone [Decadron] 6 mg PO DAILY 06/13/21 [History Last Taken Unknown] fluticasone propion-salmeterol [Advair Diskus] 1 inh INHALATION BID 06/13/21 [History Last Taken Unknown] furosemide [Lasix] 40 mg PO DAILY 06/13/21 [History Last Taken Unknown] levothyroxine 25 mcg PO DAILY 06/13/21 [History Last Taken Unknown] lorazepam 0.5 mg PO BID 06/13/21 [History Last Taken Unknown] pantoprazole 40 mg PO DAILY 06/13/21 [History Last Taken Unknown] paroxetine HCl 40 mg PO DAILY 06/13/21 [History Last Taken Unknown] perphenazine 8 mg PO BID 06/13/21 [History Last Taken Unknown] perphenazine 16 mg QHS 06/13/21 [History Last Taken Unknown] potassium chloride 10 meq PO TID 06/13/21 [History Last Taken Unknown] warfarin [Coumadin] 2.5 mg PO DAILY 06/13/21 [History Last Taken Unknown] Allergy/AdvReac Type Severity Reaction Status Date / Time budesonide [From Pulmicort] Allergy PT UNABLE Verified 06/13/21 20:17 TO RESPOND-NEEDS F/U hydromorphone [From Dilaudid] Allergy PT UNABLE Verified 06/13/21 20:17 TO RESPOND-NEEDS F/U Iodinated Contrast Media Allergy PT UNABLE Verified 06/13/21 20:17 TO RESPOND-NEEDS F/U levofloxacin [From Levaquin] Allergy PT UNABLE Verified 06/13/21 20:17 TO RESPOND-NEEDS F/U Penicillins Allergy PT UNABLE Verified 06/13/21 20:17 TO RESPOND-NEEDS F/U Social History Smoking Status: Unknown if ever smoked ROS ROS ED ROS Narrative Review of systems obtained from nursing report Review of Systems ROS Unobtainable: due to mental status Constitutional Constitutional ED: Reports fever(s) Respiratory/Chest Respiratory/Chest: Reports cough and dyspnea EXAM Physical Exam Const Vital Signs: 06/13/21 20:06 06/13/21 20:15 06/13/21 20:36 Temperature 97.7 F L 97.7 F L Temperature Source Temporal Temporal Pulse Rate 87 84 Respiratory Rate 15 31 H Respiratory Effort Short of Breath Blood Pressure 155/86 H 135/65 H Blood Pressure Mean 109 88 Pulse Ox 96 95 Oxygen Delivery Method Nasal Cannula Nasal Cannula Oxygen Flow Rate (L/min) 4 06/13/21 20:48 06/13/21 21:48 Temperature 98.5 F Temperature Source Temporal Pulse Rate 91 Respiratory Rate 19 H Respiratory Effort Blood Pressure 135/69 H Blood Pressure Mean 91 Pulse Ox 94 92 Oxygen Delivery Method Nasal Cannula Room Air Oxygen Flow Rate (L/min) 6 6 Positive well nourished, well developed and obese General Appearance ED: well developed Nutritional Appearance: obese HEENT Reports dry mucous membranes atraumatic Mouth ED: Yes dry mucous membranes Mouth: dry mucous membranes Eyes PERRL and EOMs intact bilaterally Neck no lymphadenopathy and supple Resp Resp Narrative: Tachypneic. Coarse breath sounds throughout. Auscultation: diminished lung sounds bilateral lower GI non-tender and non-distended Palpation: soft Neuro no sensory deficits noted Neuro Narrative: No focal neurologic deficits appreciated Sensorium / Orientation: alert and oriented to person; Negative for oriented to place or orientation impaired Motor Exam: general weakness Psych mental status grossly normal Skin Lesions: no lesions Rashes: no rashes MDM MDM MDM Narrative Medical decision making narrative: Patient is evaluated for worsening hypoxia in the setting of COVID-19 infection. She is on day 5 of Decadron. She is currently 93% on 6 L. She does have a leukocytosis however I am not sure if this is reactive or associated with her steroids. Will defer antibiotics at this time. Elevated inflammatory markers. Her D-dimer is normal. In addition she is on Coumadin to have a lower suspicion for PE. INR is pending. Patient will be admitted for further respiratory management. She is agreeable this plan of care. Lab Data Attestation: I reviewed the patient's lab results. Labs: Laboratory Results - last 24 hr 06/13/21 06/13/21 06/13/21 20:26 20:26 20:26 WBC 14.4 H RBC 4.56 Hgb 12.3 Hct 40.1 MCV 87.9 MCH 27.0 MCHC 30.7 L RDW Std Deviation 45.1 H RDW Coeff of Opal 14.0 Plt Count 301 MPV 10.5 Immature Gran % (Auto) 0.800 Neut % (Auto) 85.7 H Lymph % (Auto) 7.4 L Frio % (Auto) 6.0 Eos % (Auto) 0.0 Baso % (Auto) 0.1 Absolute Neuts (auto) 12.4 H Absolute Lymphs (auto) 1.06 Nucleated RBC % 0 Fibrinogen D-Dimer Quant (PE/DVT) Sodium 154 H Potassium 3.9 Chloride 118 H Carbon Dioxide 33.0 H Anion Gap 3 L BUN 38 H Creatinine 1.24 H Estim Creat Clear Calc 33.65 Est GFR (MDRD) Af Amer 54 L Est GFR (MDRD) Non-Af 44 L BUN/Creatinine Ratio 30.6 H Glucose 126 H Lactic Acid 1.8 Calcium 9.3 Magnesium Total Bilirubin 0.20 AST 11 L ALT 14 Alkaline Phosphatase 67 Lactate Dehydrogenase 238 Total Creatine Kinase 54 Troponin I High Sens 11 C-React Prot Ext Range 67.40 H Total Protein 6.3 L Albumin 2.4 L Globulin 3.9 Albumin/Globulin Ratio 0.6 L Procalcitonin 06/13/21 06/13/21 06/13/21 20:26 20:26 20:33 WBC RBC Hgb Hct MCV MCH MCHC RDW Std Deviation RDW Coeff of Opal Plt Count MPV Immature Gran % (Auto) Neut % (Auto) Lymph % (Auto) Frio % (Auto) Eos % (Auto) Baso % (Auto) Absolute Neuts (auto) Absolute Lymphs (auto) Nucleated RBC % Fibrinogen 583 H D-Dimer Quant (PE/DVT) <= 0.27 Sodium Potassium Chloride Carbon Dioxide Anion Gap BUN Creatinine Estim Creat Clear Calc Est GFR (MDRD) Af Amer Est GFR (MDRD) Non-Af BUN/Creatinine Ratio Glucose Lactic Acid Calcium Magnesium 2.6 Total Bilirubin AST ALT Alkaline Phosphatase Lactate Dehydrogenase Total Creatine Kinase Troponin I High Sens C-React Prot Ext Range Total Protein Albumin Globulin Albumin/Globulin Ratio Procalcitonin 0.15 H Radiography Chest X-Ray - ED: 1 View, Read by ED Physician, Read by Radiologist, Right Infiltrate and Left Infiltrate Diagnostic Testing: Clinical Impression(s) from Imaging Studies Chest X-Ray 06/13/21 20:22 IMPRESSION: Interstitial and airspace opacifications without effusions. Differential as described above. Follow-up recommended to assure resolution Electronically Signed: Luis Duff MD at 21:17 EST , Service support , Rhythm Strip Rhythm Strip: Sinus Rhythm Rate: 87 Ectopy: None EKG Initial EKG: Attestation: I personally reviewed and interpreted this EKG as follows: Interpretation: Sinus Rhythm Comments: Normal sinus rhythm at a rate of 87 Normal axis Normal intervals Normal ST segments Discharge Plan Triage Chief Complaint: Shortness of Breath ED Provider: Teena De La Torre Dx/Rx/DC Orders Clinical Impression: Acute and chronic respiratory failure with hypoxia, Pneumonia due to COVID-19 virus Primary Care Provider: Saji Ochoa Disposition Disposition: Acute Care Hospital [facility] Discharge Date/Time: 06/13/21 22:27
[2021-06-13 21:01] LABS: Fibrinogen 583 mg/dl (203-444)
[2021-06-13 21:14] LABS: D-Dimer Quantitative (DVT/PE) <= 0.27 FEU/ug/m (0.27-0.49)
[2021-06-13 21:14] LABS: Absolute Lymphocyte Count 1.06 X10^3/uL (0.83-4.51); Absolute Neutrophil Count 12.4 X10^3/uL (2.0-7.7); Basophil# 0.01 X10^3/uL; Basophil% 0.1 % (0-1); Hematocrit 40.1 % (37-47); Hemoglobin 12.3 g/dL (12.0-15.0); Lymphocyte # 1.06 X10^3/ul (0.83-4.51); Lymphocyte % 7.4 % (19-41); Mean Corp Hgb Conc 30.7 g/dL (32-36); Mean Corpuscular Volume 87.9 fL (81-99); Mean Platelet Vol. 10.5 fl (6.2-12.0); Monocyte# 0.87 X10^3/uL; NRBC Flagged by Analyzer 0 % (0-5); Neutrophil # 12.36 X10^3/uL (2.7-7.7); Neutrophil % 85.7 % (47-70); Platelet Count 301 K/mm3 (150-450); RBC Distribution Width SD 45.1 fl (35.1-43.9); Red Blood Count 4.56 M/mm3 (4.2-5.4); White Blood Count 14.4 K/mm3 (4.4-11.0)
[2021-06-13 21:30] LABS: Lactic Acid 1.8 mmol/L (0.4-1.9)
[2021-06-13 21:32] LABS: ALB/GLOB Ratio 0.6 RATIO (0.9-2.4); AST(SGOT) 11 U/L (15-37); Alanine Aminotransfer ALT/SGPT 14 U/L (13-56); Albumin, Serum 2.4 g/dL (3.2-5.0); Alkaline Phosphatase 67 U/L (45-117); Anion Gap 3 (5-15); BUN 38 mg/dL (7-18); BUN/Creat Ratio 30.6 RATIO (10-20); CPK Total, Creatine Kinase 54 U/L (26-192); Calcium,Total 9.3 mg/dL (8.5-10.1); Chloride 118 mmol/L (98-107); Creatinine, Serum 1.24 mg/dL (0.55-1.02); EST Glomerular Filtration Rate 44 mL/min (>60); Est Glom Filt Rate - Afr Amer 54 mL/min (>60); Estimated Creatinine Clearance 33.65 ml/min; Globulin 3.9 g/dL (2.2-4.2); Glucose 126 mg/dL (74-106); LDH 238 U/L (84-246); Potassium 3.9 mmol/L (3.5-5.1); Protein, Total 6.3 g/dL (6.4-8.2); Sodium Level 154 mmol/L (136-145); Troponin-I HS 11 pg/mL (3.0-54.0)
--- NOTE | 2021-06-13 21:55 | SUR.HOLD ---
Called daughter, Ange to let her know she is here and will likely be admitted, as waiting on hospitalist. Also, called over to facility and let RN know.
[2021-06-13 21:57] LABS: Procalcitonin 0.15 ng/mL (0.00-0.09)
--- NOTE | 2021-06-13 22:21 | HP.PCM.HOS_ITS ---
HPI - General General Date of Admission: 06/13/21 HPI Narrative MARTHA VELAZQUEZ, is a 80 F with multiple comorbidities listed, SNF resident was brought to ED from [facility] for worsening of shortness of breath, cough, hypoxia Covid symptoms for 7 days. Patient tested positive COVID-19 in [facility] on 06/06 documentation available and in the chart. Patient on Decadron for last 5 days. Patient had COVID-19 vaccine 2 dosages and booster does not remember which exact vaccine. Denies fever or chills. In ED, patient afebrile, heart rate in 90s, hypoxia pulse ox 95% on 6 L of oxygen. Tachypneic 20 to 31/min Labs reviewed. D-dimer negative. Sodium, chloride and bicarb elevated. BUN elevated. Creatinine on baseline 1.24. Inflammatory markers elevated. Chest x-ray bilateral shows interstitial and airspace opacification. Patient is DNR CC arrest from [facility] sent by PCP Dr. Saji Ochoa. senior care document reviewed [facility] Medical History Afib Anemia Anxiety disorder Chronic respiratory disease Coordination impairment COPD (chronic obstructive pulmonary disease) Depressed affect Diabetes Dysphagia Emphysema, unspecified Gait abnormality GERD (gastroesophageal reflux disease) Hypertension Hypothyroidism Osteoporosis PVD (peripheral vascular disease) Sarcoidosis of lung Schizophrenia Sleep apnea Weakness Home Medications atorvastatin [Lipitor] 10 mg PO DAILY 06/13/21 [History Last Taken Unknown] dexamethasone [Decadron] 6 mg PO DAILY 06/13/21 [History Last Taken Unknown] fluticasone propion-salmeterol [Advair Diskus] 1 inh INHALATION BID 06/13/21 [History Last Taken Unknown] furosemide [Lasix] 40 mg PO DAILY 06/13/21 [History Last Taken Unknown] levothyroxine 25 mcg PO DAILY 06/13/21 [History Last Taken Unknown] lorazepam 0.5 mg PO BID 06/13/21 [History Last Taken Unknown] pantoprazole 40 mg PO DAILY 06/13/21 [History Last Taken Unknown] paroxetine HCl 40 mg PO DAILY 06/13/21 [History Last Taken Unknown] perphenazine 8 mg PO BID 06/13/21 [History Last Taken Unknown] perphenazine 16 mg QHS 06/13/21 [History Last Taken Unknown] potassium chloride 10 meq PO TID 06/13/21 [History Last Taken Unknown] warfarin [Coumadin] 2.5 mg PO DAILY 06/13/21 [History Last Taken Unknown] Allergy/AdvReac Type Severity Reaction Status Date / Time budesonide [From Pulmicort] Allergy PT UNABLE Verified 06/13/21 20:17 TO RESPOND-NEEDS F/U hydromorphone [From Dilaudid] Allergy PT UNABLE Verified 06/13/21 20:17 TO RESPOND-NEEDS F/U Iodinated Contrast Media Allergy PT UNABLE Verified 06/13/21 20:17 TO RESPOND-NEEDS F/U levofloxacin [From Levaquin] Allergy PT UNABLE Verified 06/13/21 20:17 TO RESPOND-NEEDS F/U Penicillins Allergy PT UNABLE Verified 06/13/21 20:17 TO RESPOND-NEEDS F/U Social History Smoking Status: Unknown if ever smoked ROS ROS Narrative Complete 12 ROS is limited because of history of schizophrenia, multiple antipsychotic medication, shortness of breath cough and possible dementia. Patient does not want intubation, ventilator. Mild chest pain mainly on coughing in the front. Denies diarrhea or constipation. No nausea or vomiting. Loss of appetite. Ambulation limited. senior care resident, generalized degenerative arthritis Rest 12 ROS documented in HPI Vital Signs Vital Signs Vital Signs: 06/13/21 20:06 06/13/21 20:15 06/13/21 20:36 Temperature 97.7 F L 97.7 F L Temperature Source Temporal Temporal Pulse Rate 87 84 Respiratory Rate 15 31 H Respiratory Effort Short of Breath Blood Pressure 155/86 H 135/65 H Blood Pressure Mean 109 88 Pulse Ox 96 95 Oxygen Delivery Method Nasal Cannula Nasal Cannula Oxygen Flow Rate (L/min) 4 06/13/21 20:48 06/13/21 21:48 06/13/21 22:15 Temperature 98.5 F Temperature Source Temporal Pulse Rate 91 89 Respiratory Rate 19 H 31 H Respiratory Effort Blood Pressure 135/69 H 137/64 H Blood Pressure Mean 91 88 Pulse Ox 94 92 95 Oxygen Delivery Method Nasal Cannula Room Air Nasal Cannula Oxygen Flow Rate (L/min) 6 6 6 Weight Weight: 191 lb 12.835 oz Body Mass Index (BMI) 31.8 Physical Exam Narrative General: Awake, cooperative. Oriented to person but not place and time. HEENT: Atraumatic, PERRLA, EOMI, Normocephalic Oral: Oral mucosa dry. No Gingival or Mucosal Lesions/ Ulcerations Neck: Supple, No JVD, Negative Carotid Bruits Lungs: Air entry diminished in bilateral lung bases. Bilateral coarse crepitations. Hypoxia and tachypnea. Cardiovascular: Sinus rhythm, normal S1, Normal S2, No murmurs Abdomen: Bowel Sounds sluggish, Soft, Non Tender, Non-Distended : No renal angle tenderness. No suprapubic tenderness. Extremities: No edema, Capillary Refill Less than 3 Seconds Skin: No rashes, No breakdown Musculoskeletal: ROM limited. Mild degenerative arthritis in hip and knee joints. No Tenderness to Palpation of Joints or Extremities Neurological: Cranial nerves II-XII grossly intact, DTR 2+/4 Psych/Mental Status: Flat affect. Amnesia. Disoriented Results Lab / Micro Data Result Diagrams: 06/13/21 20:26 06/13/21 20:26 Labs: Laboratory Results - last 24 hr 06/13/21 20:26: WBC 14.4 H, RBC 4.56, Hgb 12.3, Hct 40.1, MCV 87.9, MCH 27.0, MCHC 30.7 L, RDW Std Deviation 45.1 H, RDW Coeff of Opal 14.0, Plt Count 301, MPV 10.5, Immature Gran % (Auto) 0.800, Neut % (Auto) 85.7 H, Lymph % (Auto) 7.4 L, Toombs % (Auto) 6.0, Eos % (Auto) 0.0, Baso % (Auto) 0.1, Absolute Neuts (auto) 12.4 H, Absolute Lymphs (auto) 1.06, Nucleated RBC % 0 06/13/21 20:26: Sodium 154 H, Potassium 3.9, Chloride 118 H, Carbon Dioxide 33.0 H, Anion Gap 3 L, BUN 38 H, Creatinine 1.24 H, Estim Creat Clear Calc 33.65, Est GFR (MDRD) Af Amer 54 L, Est GFR (MDRD) Non-Af 44 L, BUN/Creatinine Ratio 30.6 H , Glucose 126 H, Calcium 9.3, Total Bilirubin 0.20, AST 11 L, ALT 14, Alkaline Phosphatase 67, Lactate Dehydrogenase 238, Total Creatine Kinase 54, Troponin I High Sens 11, C-React Prot Ext Range 67.40 H, Total Protein 6.3 L, Albumin 2.4 L , Globulin 3.9, Albumin/Globulin Ratio 0.6 L 06/13/21 20:26: Lactic Acid 1.8 06/13/21 20:26: Procalcitonin 0.15 H 06/13/21 20:33: Fibrinogen 583 H, D-Dimer Quant (PE/DVT) <= 0.27 Micro: Microbiology 06/13/21 21:15 Nasal Secretion SARS-CoV-2 Antigen (Rapid) - Final SARS-CoV-2 (COVID 19) Rhythm Strip Rhythm Strip: Sinus Rhythm Rate: 87 Ectopy: None Radiology Impression Chest X-Ray 06/13/21 20:22 IMPRESSION: Interstitial and airspace opacifications without effusions. Differential as described above. Follow-up recommended to assure resolution Electronically Signed: Luis Duff MD at 21:17 EST , Service support , Assessment & Plan Assessment/Plan (1) Acute and chronic respiratory failure with hypoxia: (2) Pneumonia due to COVID-19 virus: PLAN: 1. Acute on chronic hypoxic respiratory failure, COPD exacerbation secondary to bilateral COVID-19 pneumonia with history of COPD and sarcoidosis of lung: Patient has history of COPD. Patient is being admitted on MedSurg floor. Dexamethasone 6 mg p.o. daily for 5 more days. IV remdesivir ordered. Pneumonia work-up including blood culture ordered. Procalcitonin elevated. ID consult to consider baricitinib. Incentive spirometry, Pep and Mucinex D. Bronchodilator ordered. 2. Paroxysmal A. fib on warfarin 2.5 mg daily: INR is pending. Patient also history of peripheral vascular disease. 3. Psychiatric disease: Schizophrenia, depression, anxiety disorder: Patient antipsychotic medications continued. Ativan only as needed for severe anxiety/agitation. 4. Diabetes mellitus type 2: Accu-Chek insulin is covered with Humalog sliding scale: Glucose 126 on BMP. Other comorbidities include osteoporosis, hypothyroidism, hypertension, GERD, anemia of chronic disease, gait abnormality: Home medication reconciliation done Living will/advanced directive/end of life care: Patient does have living will or advanced directive. Hard copy present in the chart stating DNR CC arrest sig sarah by PCP Dr. Saji Riley. After discussion of benefits/risks procedures involved with full code, DNR CC arrest and DNR CC, the patient wants to continue DNR CC arrest. Patient doesn't want artificial life support including intubation, tube feed, ventilator and/chest compression, central venous catheter, vasopressor and DC shock if needed Total time spent in [id number] encounter in discussion of advanced directive 16 minutes. Charges/Coding Visit Charges Inpatient E&M: 43962 Init Hosp L3 Procedures Hospitalists Procedures: 44535 Advncd Care Plan 30 Min
[2021-06-13] MEDS: 0.9% Normal Saline 1,000 ML 100 ML IV (22:26)
[2021-06-13 22:28] LABS: Magnesium 2.6 mg/dL (1.6-2.6)
[2021-06-13 22:47] LABS: Prothrombin Time (Protime)PT. 38.5 SECONDS (11.7-14.9)
--- NOTE | 2021-06-13 23:07 | PCS.PANDOC ---
PANDEMIC DOCUMENTATION INITIATED: Date: 02/22/2021 Time: 190
[2021-06-13 23:25] LABS: BNP,B-Type NATRIURETIC PEPTIDE 51.9 pg/mL (0-100)
[2021-06-14] VITALS (25 sets, daily range): BP systolic 135–156; BP diastolic 47–70; PULSE 76–113; RESP 18–28; TEMP 36.3–37.2; O2SAT 88–96
[2021-06-14] MEDS: guaiFENesin/D-Methorphan TAB.SR.12H 1 TABLET PO ×3 (00:56→21:02)
[2021-06-14] MEDS: 0.9% Saline Lock 10 ML Syringe IV ×2 (00:56→21:02)
[2021-06-14] MEDS: Ipratropium/Albuterol Sulfate 3 ML AMPUL.NEB INHALATION ×4 (06:43→20:22)
[2021-06-14 07:00] LABS: Allen Test Positive; Base Excess 6 mmol/L (-2 to +2); Bicarbonate 30.8 mmol/L (22-26); Blood Gas Specimen Type ART; O2 Delivery Device Cannula; PO2 67 mmHG (75-100); SITE L Radial; SO2 93 % (95-99); Total Carbon Dioxide 32 mmol/L; pH 7.41 (7.35-7.45)
[2021-06-14 07:11] LABS: Hematocrit 38.1 % (37-47); Hemoglobin 11.6 g/dL (12.0-15.0); Mean Corp Hgb Conc 30.4 g/dL (32-36); Mean Corpuscular Hgb 26.9 pg (27.0-32.0); Mean Corpuscular Volume 88.4 fL (81-99); Mean Platelet Vol. 10.6 fl (6.2-12.0); Platelet Count 270 K/mm3 (150-450); RBC Distribution Width SD 45.1 fl (35.1-43.9); Red Blood Count 4.31 M/mm3 (4.2-5.4); White Blood Count 15.5 K/mm3 (4.4-11.0)
[2021-06-14 07:42] LABS: ALB/GLOB Ratio 0.6 RATIO (0.9-2.4); AST(SGOT) 13 U/L (15-37); Alanine Aminotransfer ALT/SGPT 14 U/L (13-56); Albumin, Serum 2.2 g/dL (3.2-5.0); Alkaline Phosphatase 58 U/L (45-117); Anion Gap 5 (5-15); BUN 39 mg/dL (7-18); BUN/Creat Ratio 39.2 RATIO (10-20); Calcium,Total 8.7 mg/dL (8.5-10.1); Chloride 120 mmol/L (98-107); EST Glomerular Filtration Rate 57 mL/min (>60); Est Glom Filt Rate - Afr Amer 69 mL/min (>60); Estimated Creatinine Clearance 36.67 ml/min; Globulin 3.6 g/dL (2.2-4.2); Glucose 95 mg/dL (74-106); Potassium 3.7 mmol/L (3.5-5.1); Protein, Total 5.8 g/dL (6.4-8.2); Sodium Level 154 mmol/L (136-145)
[2021-06-14] MEDS: dexAMETHasone 4 MG Tablet 6 MG PO (08:36)
[2021-06-14] MEDS: Paroxetine 20 MG Tablet 40 MG PO (08:37)
[2021-06-14] MEDS: Furosemide 40 MG Tablet PO (08:37)
[2021-06-14] MEDS: Levothyroxine 25 MCG TABLET PO (08:37)
[2021-06-14] MEDS: Pantoprazole Sodium 40 MG Tablet PO (09:02)
--- NOTE | 2021-06-14 09:55 | CASEMGMT ---
Patient is from [facility] ([facility]. GERI faxed updates to [facility]. Emmy Reese TEACHING ASSOCIATE NICOLE
[2021-06-14] MEDS: Fluticasone/Salmeterol 232-14 Inhaler 1 PUFF INHALATION (13:21)
--- NOTE | 2021-06-14 13:58 | CASEMGMT ---
GERI faxed PT/OT evaluations to [facility]. Emmy Reese ANCHORER NICOLE
--- NOTE | 2021-06-14 14:02 | CASEMGMT ---
Addendum entered by Emmy Reese 06/14/21 14:19: SW received a return call from patient's daughter Ange. She confirmed the plan is for patient to return to [facility] at d/c. She asked for medical updates. SW told her SW will have patient's RN give her a call to update. Emmy RIVERA Original Note: GERI called patient's daughter Ange. SW left her a voice mail requesting a return call to confirm the d/c plan is to return to [facility]. Emmy RIVERA
--- NOTE | 2021-06-14 14:49 | CON.PCM.ID_ITS ---
Assessment & Plan Assessment/Plan (1) Pneumonia due to COVID-19 virus: PLAN: Sx started around 06/06. Vaccinated x3, [facility] resident. Now on 15L/NC. CRP 67. Reviewed EUA and risks/benefits, we agree to start baricitini b. Cont dex and remdesivir. Isolate for 20 days until 06/25. Will follow, thank you (2) Acute and chronic respiratory failure with hypoxia: HPI Consult Data Date of Consult: 06/14/21 HPI Narrative HPI Narrative: MARTHA VELAZQUEZ, is a 80 F who presented 06/13 from [facility] with about a week of cough, dyspnea, not feeling well. Tested (+) 06/06. Vaccinated x3 doses. Started on dex. Came here, admitted on remdesivir and dex. Now worsening O2. Full ROS performed and neg except as noted above. [facility] Medical History Afib Anemia Anxiety disorder Chronic respiratory disease Coordination impairment COPD (chronic obstructive pulmonary disease) Depressed affect Diabetes Dysphagia Emphysema, unspecified Gait abnormality GERD (gastroesophageal reflux disease) Hypertension Hypothyroidism Osteoporosis PVD (peripheral vascular disease) Sarcoidosis of lung Schizophrenia Sleep apnea Weakness Home Medications acetaminophen 650 mg PO Q6H PRN 06/13/21 [History Last Taken Unknown] ascorbic acid (vitamin C) [Vitamin C] 500 mg PO DAILY 06/13/21 [History Last Taken Unknown] atorvastatin [Lipitor] 10 mg PO DAILY 06/13/21 [History Last Taken Unknown] bisacodyl 10 mg [place] PRN PRN 06/13/21 [History Last Taken Unknown] cholecalciferol (vitamin D3) [Vitamin D3] 25 mcg PO DAILY 06/13/21 [History Last Taken Unknown] dexamethasone [Decadron] 6 mg PO DAILY 06/13/21 [History Last Taken Unknown] fluticasone propion-salmeterol [Advair Diskus] 1 inh INHALATION BID 06/13/21 [History Last Taken Unknown] furosemide [Lasix] 40 mg PO DAILY 06/13/21 [History Last Taken Unknown] levothyroxine 25 mcg PO DAILY 06/13/21 [History Last Taken Unknown] lorazepam 0.5 mg PO BID 06/13/21 [History Last Taken Unknown] magnesium hydroxide [Milk of Magnesia] 400 mg PO DAILY PRN 06/13/21 [History Last Taken Unknown] pantoprazole 40 mg PO DAILY 06/13/21 [History Last Taken Unknown] paroxetine HCl 40 mg PO DAILY 06/13/21 [History Last Taken Unknown] perphenazine 8 mg PO BID 06/13/21 [History Last Taken Unknown] perphenazine 16 mg QHS 06/13/21 [History Last Taken Unknown] potassium chloride 10 meq PO TID 06/13/21 [History Last Taken Unknown] warfarin [Coumadin] 2.5 mg PO DAILY 06/13/21 [History Last Taken Unknown] zinc sulfate 220 mg PO DAILY 06/13/21 [History Last Taken Unknown] Allergy/AdvReac Type Severity Reaction Status Date / Time budesonide [From Pulmicort] Allergy PT UNABLE Verified 06/13/21 20:17 TO RESPOND-NEEDS F/U hydromorphone [From Dilaudid] Allergy PT UNABLE Verified 06/13/21 20:17 TO RESPOND-NEEDS F/U Iodinated Contrast Media Allergy PT UNABLE Verified 06/13/21 20:17 TO RESPOND-NEEDS F/U levofloxacin [From Levaquin] Allergy PT UNABLE Verified 06/13/21 20:17 TO RESPOND-NEEDS F/U Penicillins Allergy PT UNABLE Verified 06/13/21 20:17 TO RESPOND-NEEDS F/U Social History Smoking Status: Never smoker Physical Exam Const alert and oriented x3 General Appearance: cooperative Exam Limitations: no limitations HEENT normocephalic and head/scalp atraumatic Eyes PERRL and EOMs intact bilaterally Neck supple and No nodes Resp clear to auscultation bilaterally Auscultation: diminished lung sounds Cardio regular rate and regular rhythm GI normal to inspection, nondistended, normoactive bowel sounds Extremity no clubbing, cyanosis or edema Skin no rashes or lesions noted Neuro CN's II-XII intact bilaterally Lab / Micro Data Result Diagrams: 06/14/21 06:30 06/14/21 06:30 Labs: Laboratory Results - last 24 hr 06/13/21 20:26: WBC 14.4 H, RBC 4.56, Hgb 12.3, Hct 40.1, MCV 87.9, MCH 27.0, MCHC 30.7 L, RDW Std Deviation 45.1 H, RDW Coeff of Opal 14.0, Plt Count 301, MPV 10.5, Immature Gran % (Auto) 0.800, Neut % (Auto) 85.7 H, Lymph % (Auto) 7.4 L, [place] % (Auto) 6.0, Eos % (Auto) 0.0, Baso % (Auto) 0.1, Absolute Neuts (auto) 12.4 H, Absolute Lymphs (auto) 1.06, Nucleated RBC % 0 06/13/21 20:26: Sodium 154 H, Potassium 3.9, Chloride 118 H, Carbon Dioxide 33.0 H, Anion Gap 3 L, BUN 38 H, Creatinine 1.24 H, Estim Creat Clear Calc 33.65, Est GFR (MDRD) Af Amer 54 L, Est GFR (MDRD) Non-Af 44 L, BUN/Creatinine Ratio 30.6 H , Glucose 126 H, Calcium 9.3, Total Bilirubin 0.20, AST 11 L, ALT 14, Alkaline Phosphatase 67, Lactate Dehydrogenase 238, Total Creatine Kinase 54, Troponin I High Sens 11, C-React Prot Ext Range 67.40 H, Total Protein 6.3 L, Albumin 2.4 L , Globulin 3.9, Albumin/Globulin Ratio 0.6 L 06/13/21 20:26: Lactic Acid 1.8 06/13/21 20:26: Procalcitonin 0.15 H 06/13/21 20:26: Magnesium 2.6 06/13/21 20:26: B-Natriuretic Peptide 51.9 06/13/21 20:33: Fibrinogen 583 H, D-Dimer Quant (PE/DVT) <= 0.27 06/13/21 20:33: PT 38.5 H, INR 4.0 H* 06/14/21 06:30: WBC 15.5 H, RBC 4.31, Hgb 11.6 L, Hct 38.1, MCV 88.4, MCH 26.9 L , MCHC 30.4 L, RDW Std Deviation 45.1 H, RDW Coeff of Opal 14.0, Plt Count 270, MPV 10.6 06/14/21 06:30: Sodium 154 H, Potassium 3.7, Chloride 120 H, Carbon Dioxide 29.0, Anion Gap 5, BUN 39 H, Creatinine 1.00, Estim Creat Clear Calc 36.67, Est GFR (MDRD) Af Amer 69, Est GFR (MDRD) Non-Af 57 L, BUN/Creatinine Ratio 39.2 H, Glucose 95, Calcium 8.7, Total Bilirubin 0.30, AST 13 L, ALT 14, Alkaline Phosphatase 58, Total Protein 5.8 L, Albumin 2.2 L, Globulin 3.6, [place] min/Globulin Ratio 0.6 L Micro: Microbiology 06/14/21 00:01 Mucosa - Nasopharyngeal Respiratory Panel (PCR) - Final 06/13/21 21:15 Nasal Secretion SARS-CoV-2 Antigen (Rapid) - Final SARS-CoV-2 (COVID 19) ABG Data ABG results: ABG 06/14/21 06:53 Specimen Type ART Sample Site L Radial pH 7.41 Bicarbonate Actual 30.8 H Total CO2 32 Base Excess 6 H O2 Saturation 93 L ABG pCO2 49.0 H ABG pO2 67 L [place] Test Positive O2 Delivery Device Cannula Liter Flow 15.0 Rhythm Strip Rhythm Strip: Sinus Rhythm Rate: 87 Ectopy: None Radiology Impression Chest X-Ray 06/13/21 20:22 IMPRESSION: Interstitial and airspace opacifications without effusions. Differential as described above. Follow-up recommended to assure resolution Electronically Signed: Luis Duff MD at 21:17 EST , Service support ,
--- NOTE | 2021-06-14 15:38 | CON.PCM.CC_ITS ---
Assessment & Plan Assessment/Plan (1) Acute and chronic respiratory failure with hypoxia: (2) Pneumonia due to COVID-19 virus: PLAN: RECOMMENDATIONS: 1. Continue Decadron (06/18/2021), baricitinib (06/27/2021) and Remdesivir (06/17/2021) 2. Monitor for complications of therapies with daily labs 3. Diuretics as patient tolerates 4. Encourage prone positioning, Acapella and incentive spirometer as tolerated 5. Consider free water by mouth as tolerated IMPRESSIONS: 1. Acute on chronic hypoxic respiratory failure secondary to COVID-19 pn eumonia Unclear etiology at this time. Patient is fully vaccinated and appears to be getting worse relatively rapidly. Some concern for possible secondary process. Low clinical suspicion for PE given therapeutic INR and negative D- dimer. Patient has received some diuretics, but may become more aggressive if not improving in the next 24 to 48 hours. Continue with Decadron, baricitinib and Remdesivir per infectious disease. Encourage prone positioning, Acapella and incentive spirometer as tolerated. 2. Hypernatremia/non-anion gap hyperchloremic metabolic acidosis Patient appears to have an element of chronic compensated respiratory failure with elevated CO2. Unclear if this represents obesity hypoventilation as patient is on narcotics at baseline. Patient with significant hypernatremia and hyperchloremia leading to lower bicarbonate and increasing current respiratory demands. Patient would benefit from increased free water by mouth. Would not recommend D5W as this has been shown to worsen oxygenation and COVID- 19. 3. Paroxysmal A. fib/diabetes mellitus type 2/hypothyroidism/osteoporosis/hypertension/GERD/advanced age/schizophrenia Complicates care, management, recovery and prognosis. Patient is a DNR/DNI on multiple occasions. Okay to continue with baseline psychiatric medications. We will need to watch blood sugars and blood pressure closely given Decadron therapy. HPI Consult Data Date of Consult: 06/14/21 HPI Narrative HPI Narrative: MARTHA VELAZQUEZ is a 80 F, with past medical history listed below, who presents to [facility] on [facility]2021 secondary to progressive shortness of breath in the setting of COVID-19. Patient reported having symptoms on Thanksgiving of sore throat and headache and then tested positive on 06/06/2021 for COVID-19. Patient reportedly has been vaccinated against COVID- 19 and lives at an [facility]. Patient does report a history of obstructive sleep apnea, but is unable to tolerate CPAP at baseline. In the ER, patient was afebrile, but tachypneic at 31 breaths/min. Patient was requiring 4 L nasal cannula to maintain saturations. Laboratory work-up showed leukocytosis of 14.4, sodium of 154 and chloride of 118. Creatinine was elevated at 1.24 and CRP was elevated at 67. LFTs were relatively unremarkable and D-dimer was negative. Procalcitonin was only slightly elevated at 0.15. Chest x-ray showed interstitial and airspace opacifications without effusions. EKG showed normal sinus rhythm. Patient is on Coumadin at baseline was therapeutic on her INR. Since being admitted to the floor, patient's oxygen status has continued to worsen. Patient is currently requiring 15 L nasal cannula to maintain saturations. Patient is reporting a cough with no production. No bleeding comp lications such as epistaxis, hemoptysis, melena or hematochezia have been ordered. Patient is not reporting any nausea or diarrhea. Patient denies any smoking history. Patient has never had a pulmonary function test or seen a educational resource center teacher. Patient does report that she has been DNR/DNI and this is incongruence with retirement paperwork. Patient is not able to give a full review of systems at this time. Patient was noted to be 85% on 15 L nasal cannula and was in the process of being switched to Airvo. Patient does carry diagnosis of schizophrenia. Patient also carries a diagnosis of sarcoidosis, but is unaware of this diagnosis. Patient also carries a diagnosis of COPD despite reporting a non-smoking history. [facility] Medical History Afib Anemia Anxiety disorder Chronic respiratory disease Coordination impairment COPD (chronic obstructive pulmonary disease) Depressed affect Diabetes Dysphagia Emphysema, unspecified Gait abnormality GERD (gastroesophageal reflux disease) Hypertension Hypothyroidism Osteoporosis PVD (peripheral vascular disease) Sarcoidosis of lung Schizophrenia Sleep apnea Weakness Home Medications acetaminophen 650 mg PO Q6H PRN 06/13/21 [History Last Taken Unknown] ascorbic acid (vitamin C) [Vitamin C] 500 mg PO DAILY 06/13/21 [History Last Taken Unknown] atorvastatin [Lipitor] 10 mg PO DAILY 06/13/21 [History Last Taken Unknown] bisacodyl 10 mg [place] PRN PRN 06/13/21 [History Last Taken Unknown] cholecalciferol (vitamin D3) [Vitamin D3] 25 mcg PO DAILY 06/13/21 [History Last Taken Unknown] dexamethasone [Decadron] 6 mg PO DAILY 06/13/21 [History Last Taken Unknown] fluticasone propion-salmeterol [Advair Diskus] 1 inh INHALATION BID 06/13/21 [History Last Taken Unknown] furosemide [Lasix] 40 mg PO DAILY 06/13/21 [History Last Taken Unknown] levothyroxine 25 mcg PO DAILY 06/13/21 [History Last Taken Unknown] lorazepam 0.5 mg PO BID 06/13/21 [History Last Taken Unknown] magnesium hydroxide [Milk of Magnesia] 400 mg PO DAILY PRN 06/13/21 [History Last Taken Unknown] pantoprazole 40 mg PO DAILY 06/13/21 [History Last Taken Unknown] paroxetine HCl 40 mg PO DAILY 06/13/21 [History Last Taken Unknown] perphenazine 8 mg PO BID 06/13/21 [History Last Taken Unknown] perphenazine 16 mg QHS 06/13/21 [History Last Taken Unknown] potassium chloride 10 meq PO TID 06/13/21 [History Last Taken Unknown] warfarin [Coumadin] 2.5 mg PO DAILY 06/13/21 [History Last Taken Unknown] zinc sulfate 220 mg PO DAILY 06/13/21 [History Last Taken Unknown] Allergy/AdvReac Type Severity Reaction Status Date / Time budesonide [From Pulmicort] Allergy PT UNABLE Verified 06/13/21 20:17 TO RESPOND-NEEDS F/U hydromorphone [From Dilaudid] Allergy PT UNABLE Verified 06/13/21 20:17 TO RESPOND-NEEDS F/U Iodinated Contrast Media Allergy PT UNABLE Verified 06/13/21 20:17 TO RESPOND-NEEDS F/U levofloxacin [From Levaquin] Allergy PT UNABLE Verified 06/13/21 20:17 TO RESPOND-NEEDS F/U Penicillins Allergy PT UNABLE Verified 06/13/21 20:17 TO RESPOND-NEEDS F/U Social History Smoking Status: Never smoker ROS Review of Systems ROS Unobtainable: due to encephalopathy Physical Exam Const alert General Appearance: cooperative, in distress Positive for moderate and anxious Exam Limitations: altered mental status Nutritional Appearance: obese HEENT normocephalic and head/scalp atraumatic Eyes PERRL and EOMs intact bilaterally Neck supple and No nodes Chest inspection of chest normal Chest: symmetrical chest wall rise; Negative for crepitus Resp clear to auscultation bilaterally Auscultation: diminished lung sounds Cardio regular rate, no murmurs, no rub and no gallops Rhythm: abnormal rhythm irregularly irregular GI normal to inspection, nondistended, normoactive bowel sounds Extremity no clubbing, cyanosis or edema Skin no rashes or lesions noted Neuro CN's II-XII intact bilaterally Psych Mood & Affect: anxious Lab / Micro Data Result Diagrams: 06/14/21 06:30 06/14/21 06:30 Labs: Laboratory Results - last 24 hr 06/13/21 20:26: WBC 14.4 H, RBC 4.56, Hgb 12.3, Hct 40.1, MCV 87.9, MCH 27.0, MCHC 30.7 L, RDW Std Deviation 45.1 H, RDW Coeff of Opal 14.0, Plt Count 301, MPV 10.5, Immature Gran % (Auto) 0.800, Neut % (Auto) 85.7 H, Lymph % (Auto) 7.4 L, [place] % (Auto) 6.0, Eos % (Auto) 0.0, Baso % (Auto) 0.1, Absolute Neuts (auto) 12.4 H, Absolute Lymphs (auto) 1.06, Nucleated RBC % 0 06/13/21 20:26: Sodium 154 H, Potassium 3.9, Chloride 118 H, Carbon Dioxide 33.0 H, Anion Gap 3 L, BUN 38 H, Creatinine 1.24 H, Estim Creat Clear Calc 33.65, Est GFR (MDRD) Af Amer 54 L, Est GFR (MDRD) Non-Af 44 L, BUN/Creatinine Ratio 30.6 H , Glucose 126 H, Calcium 9.3, Total Bilirubin 0.20, AST 11 L, ALT 14, Alkaline Phosphatase 67, Lactate Dehydrogenase 238, Total Creatine Kinase 54, Troponin I High Sens 11, C-React Prot Ext Range 67.40 H, Total Protein 6.3 L, Albumin 2.4 L , Globulin 3.9, Albumin/Globulin Ratio 0.6 L 06/13/21 20:26: Lactic Acid 1.8 06/13/21 20:26: Procalcitonin 0.15 H 06/13/21 20:26: Magnesium 2.6 06/13/21 20:26: B-Natriuretic Peptide 51.9 06/13/21 20:33: Fibrinogen 583 H, D-Dimer Quant (PE/DVT) <= 0.27 06/13/21 20:33: PT 38.5 H, INR 4.0 H* 06/14/21 06:30: WBC 15.5 H, RBC 4.31, Hgb 11.6 L, Hct 38.1, MCV 88.4, MCH 26.9 L , MCHC 30.4 L, RDW Std Deviation 45.1 H, RDW Coeff of Opal 14.0, Plt Count 270, MPV 10.6 06/14/21 06:30: Sodium 154 H, Potassium 3.7, Chloride 120 H, Carbon Dioxide 29.0, Anion Gap 5, BUN 39 H, Creatinine 1.00, Estim Creat Clear Calc 36.67, Est GFR (MDRD) Af Amer 69, Est GFR (MDRD) Non-Af 57 L, BUN/Creatinine Ratio 39.2 H, Glucose 95, Calcium 8.7, Total Bilirubin 0.30, AST 13 L, ALT 14, Alkaline Phosphatase 58, Total Protein 5.8 L, Albumin 2.2 L, Globulin 3.6, Albumin/Globulin Ratio 0.6 L Micro: Microbiology 06/14/21 00:30 Urine, Clean Catch Streptococcus pneumoniae Antigen (M - Final 06/14/21 00:30 Urine, Clean Catch Legionella Antigen - Final 06/14/21 00:01 Mucosa - Nasopharyngeal Respiratory Panel (PCR) - Final 06/13/21 21:15 Nasal Secretion SARS-CoV-2 Antigen (Rapid) - Final SARS-CoV-2 (COVID 19) ABG Data ABG results: ABG 06/14/21 06:53 Specimen Type ART Sample Site L Radial pH 7.41 Bicarbonate Actual 30.8 H Total CO2 32 Base Excess 6 H O2 Saturation 93 L ABG pCO2 49.0 H ABG pO2 67 L [place] Test Positive O2 Delivery Device Cannula Liter Flow 15.0 Rhythm Strip Rhythm Strip: Sinus Rhythm Rate: 87 Ectopy: None Radiology Impression Chest X-Ray 06/13/21 20:22 IMPRESSION: Interstitial and airspace opacifications without effusions. Differential as described above. Follow-up recommended to assure resolution Electronically Signed: Luis Duff MD at 21:17 EST , Service support , Charges/Coding Visit Charges Inpatient E&M: 81267 Init Hosp L3
--- NOTE | 2021-06-14 16:24 | PN.HOSP_ITS ---
Subjective Subjective Follow-up on acute hypoxic respiratory failure/acute COVID-19 pneumonia: Patient was seen and examined. She is currently on 15 L of oxygen. Started on air Vo. Objective Data Objective Data Vital Signs: Vital Signs Temp Pulse Resp BP Pulse Ox 98.0 F 96 24 H 156/54 H 93 06/14/21 14:00 06/14/21 14:46 06/14/21 14:25 06/14/21 14:00 06/14/21 14:23 Oxygen Flow Rate (L/min) 15 Oxygen Delivery Method High Flow Weight: 85.7 kg Body Mass Index (BMI) 34.0 Intake & Output: Intake and Output for Last 24 Hours 06/12/21 06/13/21 06/14/21 23:59 23:59 23:59 Intake Total 0 / 0 1830 / 1830 Output Total 450 / 450 Balance 0 / 0 1380 / 1380 Lab / Micro Data Result Diagrams: 06/14/21 06:30 06/14/21 06:30 Labs: Laboratory Results - last 24 hr 06/13/21 20:26: WBC 14.4 H, RBC 4.56, Hgb 12.3, Hct 40.1, MCV 87.9, MCH 27.0, MCHC 30.7 L, RDW Std Deviation 45.1 H, RDW Coeff of Opal 14.0, Plt Count 301, MPV 10.5, Immature Gran % (Auto) 0.800, Neut % (Auto) 85.7 H, Lymph % (Auto) 7.4 L, [place] % (Auto) 6.0, Eos % (Auto) 0.0, Baso % (Auto) 0.1, Absolute Neuts (auto) 12.4 H, Absolute Lymphs (auto) 1.06, Nucleated RBC % 0 06/13/21 20:26: Sodium 154 H, Potassium 3.9, Chloride 118 H, Carbon Dioxide 33.0 H, Anion Gap 3 L, BUN 38 H, Creatinine 1.24 H, Estim Creat Clear Calc 33.65, Est GFR (MDRD) Af Amer 54 L, Est GFR (MDRD) Non-Af 44 L, BUN/Creatinine Ratio 30.6 H , Glucose 126 H, Calcium 9.3, Total Bilirubin 0.20, AST 11 L, ALT 14, Alkaline Phosphatase 67, Lactate Dehydrogenase 238, Total Creatine Kinase 54, Troponin I High Sens 11, C-React Prot Ext Range 67.40 H, Total Protein 6.3 L, Albumin 2.4 L , Globulin 3.9, Albumin/Globulin Ratio 0.6 L 06/13/21 20:26: Lactic Acid 1.8 06/13/21 20:26: Procalcitonin 0.15 H 06/13/21 20:26: Magnesium 2.6 06/13/21 20:26: B-Natriuretic Peptide 51.9 06/13/21 20:33: Fibrinogen 583 H, D-Dimer Quant (PE/DVT) <= 0.27 06/13/21 20:33: PT 38.5 H, INR 4.0 H* 06/14/21 06:30: WBC 15.5 H, RBC 4.31, Hgb 11.6 L, Hct 38.1, MCV 88.4, MCH 26.9 L , MCHC 30.4 L, RDW Std Deviation 45.1 H, RDW Coeff of Opal 14.0, Plt Count 270, MPV 10.6 06/14/21 06:30: Sodium 154 H, Potassium 3.7, Chloride 120 H, Carbon Dioxide 29.0, Anion Gap 5, BUN 39 H, Creatinine 1.00, Estim Creat Clear Calc 36.67, Est GFR (MDRD) Af Amer 69, Est GFR (MDRD) Non-Af 57 L, BUN/Creatinine Ratio 39.2 H, Glucose 95, Calcium 8.7, Total Bilirubin 0.30, AST 13 L, ALT 14, Alkaline Phosphatase 58, Total Protein 5.8 L, Albumin 2.2 L, Globulin 3.6, Albumin/Globulin Ratio 0.6 L Micro: Microbiology 06/14/21 00:30 Urine, Clean Catch Streptococcus pneumoniae Antigen (M - Final 06/14/21 00:30 Urine, Clean Catch Legionella Antigen - Final 06/14/21 00:01 Mucosa - Nasopharyngeal Respiratory Panel (PCR) - Final 06/13/21 21:15 Nasal Secretion SARS-CoV-2 Antigen (Rapid) - Final SARS-CoV-2 (COVID 19) ABG Data ABG results: ABG 06/14/21 06:53 Specimen Type ART Sample Site L Radial pH 7.41 Bicarbonate Actual 30.8 H Total CO2 32 Base Excess 6 H O2 Saturation 93 L ABG pCO2 49.0 H ABG pO2 67 L [place] Test Positive O2 Delivery Device Cannula Liter Flow 15.0 Radiography Diagnostic Testing: Radiology Impression Chest X-Ray 06/13/21 20:22 IMPRESSION: Interstitial and airspace opacifications without effusions. Differential as described above. Follow-up recommended to assure resolution Electronically Signed: Luis Duff MD at 21:17 EST , Service support , Rhythm Strip Rhythm Strip: Sinus Rhythm Rate: 87 Ectopy: None Physical Exam Narrative Physical exam: General: Alert, Oriented to self, Cooperative, No apparent distress, appears fatigued, HEENT: Atraumatic Oral: Moist Mucosa Neck: Supple Lungs: Diminished to auscultation Cardiovascular: HS I+II, regular, no murmurs Abdomen: Bowel Sounds Present, Soft, Non Tender Extremities: No edema Assessment & Plan Assessment/Plan (1) Pneumonia due to COVID-19 virus: (2) Acute and chronic respiratory failure with hypoxia: PLAN: 1. Acute hypoxic respiratory failure secondary to acute COVID-19 pneumonia Patient is vaccinated, has been having symptoms for 7 days. Admitting x-ray showed bilateral opacities Continue on Decadron, remdesivir and baricitinib ID and pulmonary consulted 2. Type II DM, blood sugars are fairly controlled, continue on insulin sliding scale 3. Supratherapeutic INR, INR is 4, will hold Coumadin, repeat INR in a.m. 4. Hypernatremia, due to dehydration, will trend 5. Rest of chronic medical conditions including schizophrenia/anxiety/depressi on all remained stable Charges/Coding Visit Charges Inpatient E&M: 45572 Subs Hosp L3
[2021-06-14] MEDS: Sodium Chloride 0.65% 1 SPRAY SPRAY.BTL 2 SPRAY NASAL (17:41)
[2021-06-14] MEDS: Atorvastatin Calcium 10 MG Tablet PO (21:02)
[2021-06-15] VITALS (27 sets, daily range): BP systolic 125–153; BP diastolic 51–82; PULSE 73–110; RESP 12–38; TEMP 36.5–36.9; O2SAT 81–95
[2021-06-15] MEDS: Ipratropium/Albuterol Sulfate 3 ML AMPUL.NEB INHALATION ×4 (07:02→20:13)
[2021-06-15 07:56] LABS: Absolute Neutrophil Count 9.8 X10^3/uL (2.0-7.7); Basophil# 0.02 X10^3/uL; Basophil% 0.2 % (0-1); Hematocrit 37.3 % (37-47); Hemoglobin 11.5 g/dL (12.0-15.0); Lymphocyte % 13.5 % (19-41); Mean Corp Hgb Conc 30.8 g/dL (32-36); Mean Corpuscular Hgb 27.1 pg (27.0-32.0); Mean Corpuscular Volume 87.8 fL (81-99); Mean Platelet Vol. 11.6 fl (6.2-12.0); Monocyte# 0.95 X10^3/uL; Monocyte% 7.6 % (0-10); NRBC Flagged by Analyzer 0 % (0-5); Neutrophil # 9.76 X10^3/uL (2.7-7.7); Neutrophil % 77.5 % (47-70); Platelet Count 254 K/mm3 (150-450); RBC Distribution Width CV 14.1 % (11.6-14.6); RBC Distribution Width SD 45.1 fl (35.1-43.9); Red Blood Count 4.25 M/mm3 (4.2-5.4); White Blood Count 12.6 K/mm3 (4.4-11.0)
[2021-06-15 08:00] LABS: International Normalized Ratio 2.9; Prothrombin Time (Protime)PT. 29.6 SECONDS (11.7-14.9)
[2021-06-15 08:51] LABS: ALB/GLOB Ratio 0.7 RATIO (0.9-2.4); AST(SGOT) 14 U/L (15-37); Alanine Aminotransfer ALT/SGPT 16 U/L (13-56); Albumin, Serum 2.2 g/dL (3.2-5.0); Alkaline Phosphatase 69 U/L (45-117); Anion Gap 9 (5-15); BUN 47 mg/dL (7-18); BUN/Creat Ratio 41.2 RATIO (10-20); Calcium,Total 9.1 mg/dL (8.5-10.1); Chloride 117 mmol/L (98-107); Creatinine, Serum 1.14 mg/dL (0.55-1.02); EST Glomerular Filtration Rate 49 mL/min (>60); Est Glom Filt Rate - Afr Amer 59 mL/min (>60); Estimated Creatinine Clearance 32.17 ml/min; Globulin 3.1 g/dL (2.2-4.2); Glucose 104 mg/dL (74-106); Potassium 3.7 mmol/L (3.5-5.1); Protein, Total 5.3 g/dL (6.4-8.2); Sodium Level 154 mmol/L (136-145)
--- NOTE | 2021-06-15 10:00 | PN.HOSP_ITS ---
Subjective Subjective Follow-up on acute hypoxic respiratory failure/acute COVID-19 pneumonia: Patient was seen and examined. She is on air Vo. Discussed patient's care with her daughter, all questions answered. Objective Data Objective Data Vital Signs: Vital Signs Temp Pulse Resp BP Pulse Ox 98.0 F 83 18 150/76 H 90 06/15/21 08:17 06/15/21 08:17 06/15/21 08:17 06/15/21 08:17 06/15/21 08:17 Oxygen Flow Rate (L/min) 60 Oxygen Delivery Method Airvo Weight: 84.6 kg Body Mass Index (BMI) 34.0 Intake & Output: Intake and Output for Last 24 Hours 06/13/21 06/14/21 06/15/21 23:59 23:59 23:59 Intake Total 0 / 0 2080 / 2080 Output Total 450 / 650 600 / 600 Balance 0 / 0 1630 / 1430 -600 / -600 Lab / Micro Data Result Diagrams: 06/15/21 07:20 06/15/21 07:20 Labs: Laboratory Results - last 24 hr 06/15/21 07:20: WBC 12.6 H, RBC 4.25, Hgb 11.5 L, Hct 37.3, MCV 87.8, MCH 27.1, MCHC 30.8 L, RDW Std Deviation 45.1 H, RDW Coeff of Opal 14.1, Plt Count 254, MPV 11.6, Immature Gran % (Auto) 1.200 H, Neut % (Auto) 77.5 H, Lymph % (Auto) 13.5 L, [place] % (Auto) 7.6, Eos % (Auto) 0.0, Baso % (Auto) 0.2, Absolute Neuts (auto) 9.8 H, Absolute Lymphs (auto) 1.70, Nucleated RBC % 0 06/15/21 07:20: Sodium 154 H, Potassium 3.7, Chloride 117 H, Carbon Dioxide 28.0, Anion Gap 9, BUN 47 H, Creatinine 1.14 H, Estim Creat Clear Calc 32.17, Est GFR (MDRD) Af Amer 59 L, Est GFR (MDRD) Non-Af 49 L, BUN/Creatinine Ratio 41.2 H, Glucose 104, Calcium 9.1, Total Bilirubin 0.50, AST 14 L, ALT 16, Alkaline Phosphatase 69, Total Protein 5.3 L, Albumin 2.2 L, Globulin 3.1, Albumin/Globulin Ratio 0.7 L 06/15/21 07:20: PT 29.6 H, INR 2.9 Micro: Microbiology 06/14/21 00:30 Urine, Clean Catch Streptococcus pneumoniae Antigen (M - Final 06/14/21 00:30 Urine, Clean Catch Legionella Antigen - Final 06/14/21 00:01 Mucosa - Nasopharyngeal Respiratory Panel (PCR) - Final 06/13/21 21:15 Nasal Secretion SARS-CoV-2 Antigen (Rapid) - Final SARS-CoV-2 (COVID 19) Rhythm Strip Rhythm Strip: Sinus Rhythm Rate: 87 Ectopy: None Physical Exam Narrative Physical exam: General: Alert, Oriented to self, Cooperative, No apparent distress, appears fatigued, HEENT: Atraumatic Oral: Moist Mucosa Neck: Supple Lungs: Diminished to auscultation Cardiovascular: HS I+II, regular, no murmurs Abdomen: Bowel Sounds Present, Soft, Non Tender Extremities: No edema Assessment & Plan Assessment/Plan (1) Acute respiratory failure with hypoxia: PLAN: 1. Acute hypoxic respiratory failure secondary to acute COVID-19 pneumonia, worsening Patient is currently on Airvo Patient is vaccinated, has been having symptoms for 7 days. Admitting x-ray showed bilateral opacities Continue on Decadron, remdesivir and baricitinib ID and pulmonary following 2. Type II DM, blood sugars are fairly controlled, continue on insulin sliding scale 3. Supratherapeutic INR, resolved INR is 2.9, will continue to hold Coumadin, Repeat INR in a.m. 4. Hypernatremia, due to dehydration, will trend 5. Rest of chronic medical conditions including schizophrenia/anxiety/depression all remained stable Charges/Coding Visit Charges Inpatient E&M: 88685 Subs Hosp L2
--- NOTE | 2021-06-15 10:07 | PCM.PN.INT ---
Assessment & Plan Assessment/Plan (1) Acute and chronic respiratory failure with hypoxia: (2) Pneumonia due to COVID-19 virus: PLAN: RECOMMENDATIONS: 1. Continue Decadron (06/18/2021), baricitinib (06/27/2021) and Remdesivir (06/17/2021) 2. Monitor for complications of therapies with daily labs 3. Diuretics as patient tolerates 4. Encourage prone positioning, Acapella and incentive spirometer as tolerated 5. Consider free water by mouth as tolerated 6. Would benefit from transition to BiPAP therapy IMPRESSIONS: 1. Acute on chronic hypoxic respiratory failure secondary to COVID-19 pneumonia Unclear etiology at this time. Patient is fully vaccinated and appears to be getting worse relatively rapidly. Some concern for possible secondary process. Low clinical suspicion for PE given therapeutic INR and negative D-dimer. Patient has received some diuretics, but may become more aggressive if not improving in the next 24 to 48 hours. Continue with Decadron, baricitinib and Remdesivir per infectious disease. Encourage prone positioning, Acapella and incentive spirometer as tolerated. Patient not really participating with Acapella and incentive spirometer. Patient would likely benefit from BiPAP to help with recruitment. Poor prognosis if patient does not become an active participant in her care 2. Hypernatremia/non-anion gap hyperchloremic metabolic acidosis Patient appears to have an element of chronic compensated respiratory failure with elevated CO2. Unclear if this represents obesity hypoventilation as patient is on narcotics at baseline. Patient with significant hypernatremia and hyperchloremia leading to lower bicarbonate and increasing current respiratory demands. Patient would benefit from increased free water by mouth. Would not recommend D5W as this has been shown to worsen oxygenation and COVID-19. 3. Paroxysmal A. fib/diabetes mellitus type 2/hypothyroidism/osteoporosis/hypertension/GERD/advanced age/schizophrenia Complicates care, management, recovery and prognosis. Patient is a DNR/DNI on multiple occasions. Okay to continue with baseline psychiatric medications. We will need to watch blood sugars and blood pressure closely given Decadron therapy. Subjective Subjective Patient did okay overnight. Patient remains on Airvo with increased FiO2 requirements. Did attempt to use incentive spirometer and Acapella with patient. Minimal to poor effort noted. Patient with nonproductive cough. Objective Data Objective Data Vital Signs: Vital Signs Temp Pulse Resp BP Pulse Ox 36.7 C 83 18 150/76 H 90 06/15/21 08:17 06/15/21 08:17 06/15/21 08:17 06/15/21 08:17 06/15/21 08:17 Oxygen Flow Rate (L/min) 60 Oxygen Delivery Method Airvo Weight: 84.6 kg Body Mass Index (BMI) 34.0 Intake & Output: Intake and Output for Last 24 Hours 06/13/21 06/14/21 06/15/21 23:59 23:59 23:59 Intake Total 0 / 0 2080 / 2080 Output Total 450 / 650 600 / 600 Balance 0 / 0 1630 / 1430 -600 / -600 Lab / Micro Data Result Diagrams: 06/15/21 07:20 06/15/21 07:20 Labs: Laboratory Results - last 24 hr 06/15/21 07:20: WBC 12.6 H, RBC 4.25, Hgb 11.5 L, Hct 37.3, MCV 87.8, MCH 27.1, MCHC 30.8 L, RDW Std Deviation 45.1 H, RDW Coeff of Opal 14.1, Plt Count 254, MPV 11.6, Immature Gran % (Auto) 1.200 H, Neut % (Auto) 77.5 H, Lymph % (Auto) 13.5 L, [place] % (Auto) 7.6, Eos % (Auto) 0.0, Baso % (Auto) 0.2, Absolute Neuts (auto) 9.8 H, Absolute Lymphs (auto) 1.70, Nucleated RBC % 0 06/15/21 07:20: Sodium 154 H, Potassium 3.7, Chloride 117 H, Carbon Dioxide 28.0, Anion Gap 9, BUN 47 H, Creatinine 1.14 H, Estim Creat Clear Calc 32.17, Est GFR (MDRD) Af Amer 59 L, Est GFR (MDRD) Non-Af 49 L, BUN/Creatinine Ratio 41.2 H, Glucose 104, Calcium 9.1, Total Bilirubin 0.50, AST 14 L, ALT 16, Alkaline Phosphatase 69, Total Protein 5.3 L, Albumin 2.2 L, Globulin 3.1, Albumin/Globulin Ratio 0.7 L 06/15/21 07:20: PT 29.6 H, INR 2.9 Micro: Microbiology 06/14/21 00:30 Urine, Clean Catch Streptococcus pneumoniae Antigen (M - Final 06/14/21 00:30 Urine, Clean Catch Legionella Antigen - Final 06/14/21 00:01 Mucosa - Nasopharyngeal Respiratory Panel (PCR) - Final 06/13/21 21:15 Nasal Secretion SARS-CoV-2 Antigen (Rapid) - Final SARS-CoV-2 (COVID 19) Rhythm Strip Rhythm Strip: Sinus Rhythm Rate: 87 Ectopy: None Physical Exam Const alert General Appearance: cooperative, in distress Positive for moderate and anxious Exam Limitations: altered mental status Nutritional Appearance: obese HEENT normocephalic and head/scalp atraumatic Eyes PERRL and EOMs intact bilaterally Neck supple and No nodes Chest inspection of chest normal Chest: symmetrical chest wall rise; Negative for crepitus Resp clear to auscultation bilaterally Auscultation: diminished lung sounds Cardio regular rate, no murmurs, no rub and no gallops Rhythm: abnormal rhythm irregularly irregular GI normal to inspection, nondistended, normoactive bowel sounds Extremity no clubbing, cyanosis or edema Skin no rashes or lesions noted Neuro CN's II-XII intact bilaterally Psych Mood & Affect: anxious Charges/Coding Visit Charges Inpatient E&M: 98272 Subs Hosp L3
[2021-06-15] MEDS: Pantoprazole Sodium 40 MG Tablet PO (10:10)
[2021-06-15] MEDS: guaiFENesin/D-Methorphan TAB.SR.12H 1 TABLET PO ×2 (10:11→20:54)
[2021-06-15] MEDS: Furosemide 40 MG Tablet PO (10:11)
[2021-06-15] MEDS: Paroxetine 20 MG Tablet 40 MG PO (10:11)
[2021-06-15] MEDS: dexAMETHasone 4 MG Tablet 6 MG PO (10:11)
[2021-06-15] MEDS: Levothyroxine 25 MCG TABLET PO (10:11)
--- NOTE | 2021-06-15 11:45 | NURSING ---
assisted pt to recliner at this time x2 stand pivot turn. O2 dropped to 86% with activity, pt recovered within 5 minutes. pt encouraged to utilize deep breathing techniques
--- NOTE | 2021-06-15 17:23 | NURSING ---
Pt satting in the mid 80s on airvo 60 L 93% and nonrebreather over top. Spoke w/ Dr. De Leon to obtain order for BIPAP. Respiratory placed on BIPAP 26/04, 100%. Called daughter Ange and updated her on pt's transition to BIPAP. Also updated RN at [facility] regarding pt.
[2021-06-15] MEDS: Atorvastatin Calcium 10 MG Tablet PO (20:54)
[2021-06-16] VITALS (17 sets, daily range): BP systolic 111–154; BP diastolic 60–68; PULSE 67–125; RESP 12–45; TEMP 36–36.5; O2SAT 75–94
[2021-06-16] MEDS: 0.9% Saline Lock 10 ML Syringe IV ×2 (04:12→20:50)
[2021-06-16] MEDS: LORazepam 2 MG/ML Syringe IV ×2 (04:12→20:51)
[2021-06-16] MEDS: Ipratropium/Albuterol Sulfate 3 ML AMPUL.NEB INHALATION ×3 (07:17→19:50)
[2021-06-16] MEDS: dexAMETHasone 4 MG Tablet 6 MG PO (08:33)
[2021-06-16] MEDS: Levothyroxine 25 MCG TABLET PO (08:33)
[2021-06-16] MEDS: Paroxetine 20 MG Tablet 40 MG PO (08:33)
[2021-06-16] MEDS: guaiFENesin/D-Methorphan TAB.SR.12H 1 TABLET PO (08:33)
[2021-06-16] MEDS: Pantoprazole Sodium 40 MG Tablet PO (08:33)
[2021-06-16] MEDS: Furosemide 40 MG Tablet PO (08:34)
[2021-06-16 09:09] LABS: Absolute Lymphocyte Count 1.25 X10^3/uL (0.83-4.51); Absolute Neutrophil Count 8.7 X10^3/uL (2.0-7.7); Basophil# 0.02 X10^3/uL; Basophil% 0.2 % (0-1); Hematocrit 40.7 % (37-47); Hemoglobin 12.3 g/dL (12.0-15.0); Lymphocyte # 1.25 X10^3/ul (0.83-4.51); Lymphocyte % 11.5 % (19-41); Mean Corp Hgb Conc 30.2 g/dL (32-36); Mean Corpuscular Hgb 26.5 pg (27.0-32.0); Mean Corpuscular Volume 87.5 fL (81-99); Mean Platelet Vol. 10.8 fl (6.2-12.0); Monocyte# 0.78 X10^3/uL; Monocyte% 7.2 % (0-10); NRBC Flagged by Analyzer 0 % (0-5); Neutrophil # 8.67 X10^3/uL (2.7-7.7); Neutrophil % 80.1 % (47-70); Platelet Count 260 K/mm3 (150-450); RBC Distribution Width CV 13.9 % (11.6-14.6); RBC Distribution Width SD 44.1 fl (35.1-43.9); Red Blood Count 4.65 M/mm3 (4.2-5.4); White Blood Count 10.8 K/mm3 (4.4-11.0)
[2021-06-16 09:25] LABS: ALB/GLOB Ratio 0.6 RATIO (0.9-2.4); AST(SGOT) 12 U/L (15-37); Alanine Aminotransfer ALT/SGPT 20 U/L (13-56); Albumin, Serum 2.2 g/dL (3.2-5.0); Alkaline Phosphatase 71 U/L (45-117); Anion Gap 7 (5-15); BUN 53 mg/dL (7-18); BUN/Creat Ratio 45.7 RATIO (10-20); Calcium,Total 9.3 mg/dL (8.5-10.1); Chloride 115 mmol/L (98-107); Creatinine, Serum 1.16 mg/dL (0.55-1.02); EST Glomerular Filtration Rate 48 mL/min (>60); Est Glom Filt Rate - Afr Amer 58 mL/min (>60); Estimated Creatinine Clearance 31.61 ml/min; Globulin 3.9 g/dL (2.2-4.2); Glucose 123 mg/dL (74-106); Potassium 3.6 mmol/L (3.5-5.1); Protein, Total 6.1 g/dL (6.4-8.2); Sodium Level 150 mmol/L (136-145)
[2021-06-16 09:39] LABS: Prothrombin Time (Protime)PT. 22.2 SECONDS (11.7-14.9)
--- NOTE | 2021-06-16 09:47 | PN.CC_ITS ---
Assessment & Plan Assessment/Plan (1) Pneumonia due to COVID-19 virus: PLAN: RECOMMENDATIONS: 1. Continue Decadron (06/18/2021), baricitinib (06/27/2021) and Remdesivir (06/17/2021) 2. Monitor for complications of therapies with daily labs 3. Attempt BiPAP breaks for pulmonary toileting 4. Encourage prone positioning, Acapella and incentive spirometer as tolerated 5. Okay to challenge with diuretics if patient remains aggressive 6. Consider discussion for palliative measures given goals of therapy IMPRESSIONS: 1. Acute hypoxic respiratory failure secondary to COVID-19 pneumonia Unclear etiology at this time. Patient is fully vaccinated and appears to be getting worse relatively rapidly. Some concern for possible secondary process. Low clinical suspicion for PE given therapeutic INR and negative D- dimer. Patient has received some diuretics, but may become more aggressive if not improving in the next 24 to 48 hours. Continue with Decadron, baricitinib and Remdesivir per infectious disease. Encourage prone positioning, Acapella and incentive spirometer as tolerated. Patient not really participating with Acapella and incentive spirometer. Patient continues to progress with hypoxia. High clinical suspicion that intubation will be required any chance of patient to survive current situation. Patient is very clear that she would not want this. Consider palliative evaluation. 2. Hypernatremia/non-anion gap hyperchloremic metabolic acidosis Patient appears to have an element of chronic compensated respiratory failure with elevated CO2. Unclear if this represents obesity hypoventilation as patient is on narcotics at baseline. Patient with significant hypernatremia and hyperchloremia leading to lower bicarbonate and increasing current respiratory demands. Okay to challenge with diuretic therapy if patient remains aggressive. 3. Paroxysmal A. fib/diabetes mellitus type 2/hypothyroidism/osteoporosis/hypertension/GERD/advanced age/schizophrenia Complicates care, management, recovery and prognosis. Patient is a DNR/DNI on multiple occasions. Okay to continue with baseline psychiatric medications. We will need to watch blood sugars and blood pressure closely given Decadron therapy. Subjective Subjective Patient continues to decompensate from a respiratory standpoint. Patient was placed on BiPAP yesterday and has progressed to requiring 100% FiO2 to maintain saturations. No bleeding complications have been reported. Patient once again reiterated a DO NOT INTUBATE CODE STATUS. Patient overall feels subjectively unchanged compared to yesterday. Objective Data Objective Data Vital Signs: Vital Signs Temp Pulse Resp BP Pulse Ox 36.0 C L 80 28 H 135/65 H 93 06/16/21 08:00 06/16/21 08:00 06/16/21 08:00 06/16/21 08:00 06/16/21 08:00 Oxygen Flow Rate (L/min) 60 Oxygen Delivery Method Bi-pap Weight: 87.9 kg Body Mass Index (BMI) 34.0 Intake & Output: Intake and Output for Last 24 Hours 06/14/21 06/15/21 06/16/21 23:59 23:59 23:59 Intake Total 2080 / 2080 1010 / 1210 245 / 245 Output Total 450 / 650 1600 / 1900 500 / 500 Balance 1630 / 1430 -590 / -690 -255 / -255 Lab / Micro Data Result Diagrams: 06/16/21 08:40 06/16/21 08:40 Labs: Laboratory Results - last 24 hr 06/16/21 08:40: WBC 10.8, RBC 4.65, Hgb 12.3, Hct 40.7, MCV 87.5, MCH 26.5 L, MCHC 30.2 L, RDW Std Deviation 44.1 H, RDW Coeff of Opal 13.9, Plt Count 260, MPV 10.8, Immature Gran % (Auto) 1.000 H, Neut % (Auto) 80.1 H, Lymph % (Auto) 11.5 L, [place] % (Auto) 7.2, Eos % (Auto) 0.0, Baso % (Auto) 0.2, Absolute Neuts (auto) 8.7 H, Absolute Lymphs (auto) 1.25, Nucleated RBC % 0 06/16/21 08:40: Sodium 150 H, Potassium 3.6, Chloride 115 H, Carbon Dioxide 28.0, Anion Gap 7, BUN 53 H, Creatinine 1.16 H, Estim Creat Clear Calc 31.61, Est GFR (MDRD) Af Amer 58 L, Est GFR (MDRD) Non-Af 48 L, BUN/Creatinine Ratio 4 5.7 H, Glucose 123 H, Calcium 9.3, Total Bilirubin 0.40, AST 12 L, ALT 20, Alkaline Phosphatase 71, Total Protein 6.1 L, Albumin 2.2 L, Globulin 3.9, Albumin/Globulin Ratio 0.6 L 06/16/21 08:40: PT 22.2 H, INR 2.0 Micro: Microbiology 06/13/21 20:33 Blood Culture (Wb) - No Site/Description Given Blood Culture - Preliminary No growth in 48 hours. 06/13/21 20:26 Blood Culture (Wb) - Anticubital Right Blood Culture - Preliminary No growth in 48 hours. 06/14/21 00:30 Urine, Clean Catch Streptococcus pneumoniae Antigen (M - Final 06/14/21 00:30 Urine, Clean Catch Legionella Antigen - Final 06/14/21 00:01 Mucosa - Nasopharyngeal Respiratory Panel (PCR) - Final 06/13/21 21:15 Nasal Secretion SARS-CoV-2 Antigen (Rapid) - Final SARS-CoV-2 (COVID 19) Rhythm Strip Rhythm Strip: Sinus Rhythm Rate: 87 Ectopy: None Physical Exam Const alert General Appearance: cooperative, in distress Positive for moderate, anxious and on BiPAP Exam Limitations: altered mental status Nutritional Appearance: obese HEENT normocephalic and head/scalp atraumatic Eyes PERRL and EOMs intact bilaterally Neck supple and No nodes Chest inspection of chest normal Chest: symmetrical chest wall rise; Negative for crepitus Resp clear to auscultation bilaterally Auscultation: diminished lung sounds Cardio regular rate, no murmurs, no rub and no gallops Rhythm: abnormal rhythm irregularly irregular GI normal to inspection, nondistended, normoactive bowel sounds Extremity no clubbing, cyanosis or edema Skin no rashes or lesions noted Neuro CN's II-XII intact bilaterally Psych Mood & Affect: anxious Charges/Coding Visit Charges Inpatient E&M: 22141 Subs Hosp L3
--- NOTE | 2021-06-16 10:21 | CASEMGMT ---
Social Work As per Dr. De Leon, family in agreement w/hospice referral for the [facility]. SW faxed referral, called and asked them to call daughter Ange directly, let SW know when they are set up to meet. SW will continue to follow. LIV Mariano
--- NOTE | 2021-06-16 13:41 | CASEMGMT ---
SW spoke with Jason from Hospice regarding patient's referral. She said it does not look like it has been processed yet. Emmy Reese PARKING [employer]ER ATTENDANT [employer]
--- NOTE | 2021-06-16 14:10 | CASEMGMT ---
GERI called Hospice and spoke with Noelle about referral. [facility] has a new system now on how referrals are handled. Apparently [facility] referrals are viewed by the [facility] office. Noelle looked in the system and she could not see if patient's referral was processed yet or not. She did an inquiry via the computer system with no luck. Noelle told GERI to re-fax the referral and she will see if she can get things going. GERI re-faxed referral. Emmy Reese GREEK PROFESSOR NICOLE
--- NOTE | 2021-06-16 16:16 | PCM.PN.HOSP ---
Subjective Subjective Follow-up on acute hypoxic respiratory failure/acute COVID-19 pneumonia: Patient was seen and examined. She is Bipap continuously. Discussed with daughter, Ange- agreeable to Hospice. Objective Data Objective Data Vital Signs: Vital Signs Temp Pulse Resp BP Pulse Ox 97.2 F L 79 32 H 111/67 94 06/16/21 13:00 06/16/21 14:57 06/16/21 13:00 06/16/21 13:00 06/16/21 13:00 Oxygen Flow Rate (L/min) 60 Oxygen Delivery Method Bi-pap Weight: 87.9 kg Body Mass Index (BMI) 34.0 Intake & Output: Intake and Output for Last 24 Hours 06/14/21 06/15/21 06/16/21 23:59 23:59 23:59 Intake Total 2080 / 2080 1010 / 1210 245 / 245 Output Total 450 / 650 1600 / 1900 500 / 500 Balance 1630 / 1430 -590 / -690 -255 / -255 Lab / Micro Data Result Diagrams: 06/16/21 08:40 06/16/21 08:40 Labs: Laboratory Results - last 24 hr 06/16/21 08:40: WBC 10.8, RBC 4.65, Hgb 12.3, Hct 40.7, MCV 87.5, MCH 26.5 L, MCHC 30.2 L, RDW Std Deviation 44.1 H, RDW Coeff of Opal 13.9, Plt Count 260, MPV 10.8, Immature Gran % (Auto) 1.000 H, Neut % (Auto) 80.1 H, Lymph % (Auto) 11.5 L, [place] % (Auto) 7.2, Eos % (Auto) 0.0, Baso % (Auto) 0.2, Absolute Neuts (auto) 8.7 H, Absolute Lymphs (auto) 1.25, Nucleated RBC % 0 06/16/21 08:40: Sodium 150 H, Potassium 3.6, Chloride 115 H, Carbon Dioxide 28.0, Anion Gap 7, BUN 53 H, Creatinine 1.16 H, Estim Creat Clear Calc 31.61, Est GFR (MDRD) Af Amer 58 L, Est GFR (MDRD) Non-Af 48 L, BUN/Creatinine Ratio 45.7 H, Glucose 123 H, Calcium 9.3, Total Bilirubin 0.40, AST 12 L, ALT 20, Alkaline Phosphatase 71, Total Protein 6.1 L, Albumin 2.2 L, Globulin 3.9, Albumin/Globulin Ratio 0.6 L 06/16/21 08:40: PT 22.2 H, INR 2.0 Micro: Microbiology 06/13/21 20:33 Blood Culture (Wb) - No Site/Description Given Blood Culture - Preliminary No growth in 48 hours. 06/13/21 20:26 Blood Culture (Wb) - Anticubital Right Blood Culture - Preliminary No growth in 48 hours. 06/14/21 00:30 Urine, Clean Catch Streptococcus pneumoniae Antigen (M - Final 06/14/21 00:30 Urine, Clean Catch Legionella Antigen - Final 06/14/21 00:01 Mucosa - Nasopharyngeal Respiratory Panel (PCR) - Final 06/13/21 21:15 Nasal Secretion SARS-CoV-2 Antigen (Rapid) - Final SARS-CoV-2 (COVID 19) Rhythm Strip Rhythm Strip: Sinus Rhythm Rate: 87 Ectopy: None Physical Exam Narrative Physical exam: General: Alert, Oriented to self, very fatigued, HEENT: Atraumatic Oral: Moist Mucosa Neck: Supple Lungs: Diminished to auscultation Cardiovascular: HS I+II, regular, no murmurs Abdomen: Bowel Sounds Present, Soft, Non Tender Extremities: No edema Assessment & Plan Assessment/Plan (1) Acute respiratory failure with hypoxia: PLAN: 1. Acute hypoxic respiratory failure secondary to acute COVID-19 pneumonia, worsening Patient is currently on Bipap - appropriate Hospice. Patient is vaccinated, has been having symptoms for 7 days. Admitting x-ray showed bilateral opacities Continue on Decadron, Remdesivir and baricitinib ID and pulmonary following 2. Type II DM, blood sugars are fairly controlled, continue on insulin sliding scale 3. Supratherapeutic INR, resolved INR is 2.9, will continue to hold Coumadin, Repeat INR in a.m. 4. Hypernatremia, due to dehydration, will trend 5. Rest of chronic medical conditions including schizophrenia/anxiety/depression all remained stable Charges/Coding Visit Charges Inpatient E&M: 88774 Subs Hosp L3
[2021-06-16] MEDS: morphine (oral solution) 10MG/0.5ML Syringe 5 MG SL/PO ×2 (18:09→20:13)
--- NOTE | 2021-06-16 18:11 | NURSING ---
report called to hospice [facility]
--- NOTE | 2021-06-16 19:01 | NURSING ---
5mg SL morphine wasted with Nuria Meredith RN
--- NOTE | 2021-06-16 19:12 | DS.PCM_ITS ---
Providers Date of Admission: 06/13/21 Date of Discharge: 06/16/21 Primary Care Physician: Saji Ochoa Consultations 06/13/21 22:51 Consult: Infectious Disease Routine Consulting Provider: Ramesh Casper Reason for Consult: Covid-19. Consider Barticinib EMERGENT Consult: No Notified: Yes Date Notified: 06/14/21 Time Notified: 07:56 Method of Notification: Text 06/14/21 09:34 Consult: Construction Consultant / Pulmonary Medicine Routine Consulting Provider: Pulmonary Medicine [facility] Reason for Consult: Resp failure EMERGENT Consult: No Notified: Yes Date Notified: 06/14/21 Time Notified: 09:46 Method of Notification: Text Reason For Visit: COVID 19 PNEUMONIA Diagnosis Discharge Diagnosis (1) Acute respiratory failure with hypoxia: Status: Acute Code(s): J96.01 - Acute respiratory failure with hypoxia Medications at Discharge Home Medications acetaminophen 650 mg PO Q6H PRN 06/13/21 ascorbic acid (vitamin C) [Vitamin C] 500 mg PO DAILY 06/13/21 atorvastatin [Lipitor] 10 mg PO DAILY 06/13/21 bisacodyl 10 mg ME PRN PRN 06/13/21 cholecalciferol (vitamin D3) [Vitamin D3] 25 mcg PO DAILY 06/13/21 dexamethasone [Decadron] 6 mg PO DAILY 06/13/21 fluticasone propion-salmeterol [Advair Diskus] 1 inh INHALATION BID 06/13/21 furosemide [Lasix] 40 mg PO DAILY 06/13/21 levothyroxine 25 mcg PO DAILY 06/13/21 lorazepam 0.5 mg PO BID 06/13/21 magnesium hydroxide [Milk of Magnesia] 400 mg PO DAILY PRN 06/13/21 pantoprazole 40 mg PO DAILY 06/13/21 paroxetine HCl 40 mg PO DAILY 06/13/21 perphenazine 8 mg PO BID 06/13/21 perphenazine 16 mg QHS 06/13/21 potassium chloride 10 meq PO TID 06/13/21 warfarin [Coumadin] 2.5 mg PO DAILY 06/13/21 zinc sulfate 220 mg PO DAILY 06/13/21 Hospital Course Operations None Procedures None Summary of Care Provided Minutes Spent on Discharge: 50 Hospital Course: 80-year-old female, resident in a longterm who presented with progressive shortness of breath, cough ongoing for 7 days. Patient tested positive for COVID-19 on 06/06. She was started on Decadron for the last 5 days. Patient had been vaccinated and received a booster. She also has sarcoidosis. Admitting chest x-ray showed interstitial and airspace opacification. Patient's CODE STATUS is a DNR CCA from the longterm. Patient was managed on Decadron, remdesivir and later on baricitinib was added when her oxygen got worse. She was managed on air Vo intermittent with BiPAP. Family with updated throughout his hospital stay. Patient continued to worsen, and was dependent on BiPAP. Patient had pulmonology and ID following the h ospital stay. Patient continuously been on BiPAP with no breaks. Patient had voiced out that she did not want to be intubated. This was confirmed with the POA. Hospice was consulted and patient was discharged to hospice. Physical Exam Narrative Physical exam: General: Alert, Oriented to self, very fatigued,on Bipap HEENT: Atraumatic Oral: Moist Mucosa Neck: Supple Lungs: Diminished to auscultation Cardiovascular: HS I+II, regular, no murmurs Abdomen: Bowel Sounds Present, Soft, Non Tender Extremities: No edema Weight / BMI Weight Weight: 87.9 kg Body Mass Index (BMI) 34.0 ABG / Lab / Microbiology Data Result Diagrams: 06/16/21 08:40 06/16/21 08:40 Laboratory: Laboratory Results - last 24 hr 06/16/21 08:40: WBC 10.8, RBC 4.65, Hgb 12.3, Hct 40.7, MCV 87.5, MCH 26.5 L, MCHC 30.2 L, RDW Std Deviation 44.1 H, RDW Coeff of Opal 13.9, Plt Count 260, MPV 10.8, Immature Gran % (Auto) 1.000 H, Neut % (Auto) 80.1 H, Lymph % (Auto) 11.5 L, [place] % (Auto) 7.2, Eos % (Auto) 0.0, Baso % (Auto) 0.2, Absolute Neuts (auto) 8.7 H, Absolute Lymphs (auto) 1.25, Nucleated RBC % 0 06/16/21 08:40: Sodium 150 H, Potassium 3.6, Chloride 115 H, Carbon Dioxide 28.0, Anion Gap 7, BUN 53 H, Creatinine 1.16 H, Estim Creat Clear Calc 31.61, Est GFR (MDRD) Af Amer 58 L, Est GFR (MDRD) Non-Af 48 L, BUN/Creatinine Ratio 45.7 H, Glucose 123 H, Calcium 9.3, Total Bilirubin 0.40, AST 12 L, ALT 20, Alkaline Phosphatase 71, Total Protein 6.1 L, Albumin 2.2 L, Globulin 3.9, Albumin/Globulin Ratio 0.6 L 06/16/21 08:40: PT 22.2 H, INR 2.0 Microbiology: Microbiology 06/13/21 20:33 Blood Culture (Wb) - No Site/Description Given Blood Culture - Preliminary No growth in 48 hours. 06/13/21 20:26 Blood Culture (Wb) - Anticubital Right Blood Culture - Preliminary No growth in 48 hours. 06/14/21 00:30 Urine, Clean Catch Streptococcus pneumoniae Antigen (M - Final 06/14/21 00:30 Urine, Clean Catch Legionella Antigen - Final 06/14/21 00:01 Mucosa - Nasopharyngeal Respiratory Panel (PCR) - Final 06/13/21 21:15 Nasal Secretion SARS-CoV-2 Antigen (Rapid) - Final SARS-CoV-2 (COVID 19) D/C Instructions Discharge Diet: No restrictions Meaningful Use Info Meaningful Use Diagnoses (Choose all that apply): None applicable Discharge Plan Admission Admit Date/Time: 06/13/21 21:39 Primary Reason for Your Visit: Acute Covid 19 pneumonia/acute hypoxic respiratory failure Attending Provider: Katiuska De Leon Primary Care Provider: Saji Ochoa Consulting Providers: Ramesh Casper ; Chano Mcallister ; Yazan Singh ; Akosua Goel PAPER PATTERN FOLDER Discharge Orders/Prescriptions Prescriptions: No Action furosemide [Lasix] 40 mg Tablet 40 mg PO DAILY RF: 0 fluticasone propion-salmeterol [Advair Diskus] 250-50 mcg/dose Blister With Device 1 inh INHALATION BID RF: 0 atorvastatin [Lipitor] 10 mg Tablet 10 mg PO DAILY RF: 0 warfarin [Coumadin] 2.5 mg Tablet 2.5 mg PO DAILY RF: 0 potassium chloride 10 mEq Tablet Extended Release 10 meq PO TID RF: 0 levothyroxine 25 mcg Tablet 25 mcg PO DAILY RF: 0 lorazepam 0.5 mg Tablet 0.5 mg PO BID RF: 0 pantoprazole 40 mg Tablet,Delayed Release (Dr/Ec) 40 mg PO DAILY RF: 0 paroxetine HCl 40 mg Tablet 40 mg PO DAILY RF: 0 perphenazine 8 mg Tablet 8 mg PO BID RF: 0 perphenazine 16 mg Tablet 16 mg QHS RF: 0 dexamethasone [Decadron] 6 mg Tablet 6 mg PO DAILY RF: 0 bisacodyl 5 mg Suppository 10 mg ME PRN PRN (Reason: Constipation) RF: 0 acetaminophen 650 mg Tablet 650 mg PO Q6H PRN (Reason: fever, pain) RF: 0 magnesium hydroxide [Milk of Magnesia] 400 mg/5 mL Suspension 400 mg PO DAILY PRN (Reason: Constipation) RF: 0 ascorbic acid (vitamin C) [Vitamin C] 500 mg Tablet 500 mg PO DAILY RF: 0 zinc sulfate 220 mg Capsule 220 mg PO DAILY RF: 0 cholecalciferol (vitamin D3) [Vitamin D3] 25 mcg (1,000 unit) Tablet 25 mcg PO DAILY RF: 0 Referrals / Follow Up: Saji Ochoa [Primary Care Provider] - Disposition Disposition (needs filled in before D/C Order can be placed): Hospice in Medical Facility Charges/Coding Visit Charges Inpatient E&M: 15291 Disch Hosp
--- NOTE | 2021-06-16 20:24 | NURSING ---
Verified waste 5 mg of roxanol w/ J. CHRIS Cuevas. [facility].
--- NOTE | 2021-06-16 21:27 | NURSING ---
Pt left for the [facility], updated daughter Ange and the nurse at the [facility].
== END 2021-06-16 21:05 | disposition hospice, inpatient (51) | DRG 177 ==
LOC: ED 21:02 → PCU 22:53
PROVIDERS: Admitting Provider Internal Medicine; Emergency Provider Emergency Medicine; PCP Family Medicine; Visit Provider Internal Medicine
DX: U07.1 COVID-19 (principal); J12.82 Pneumonia due to coronavirus disease 2019; J96.01 Acute respiratory failure with hypoxia; J44.0 Chronic obstructive pulmonary disease with (acute) lower respiratory infection; E87.0 Hyperosmolality and hypernatremia; D86.0 Sarcoidosis of lung; K21.9 Gastro-esophageal reflux disease without esophagitis; D63.8 Anemia in other chronic diseases classified elsewhere; E03.9 Hypothyroidism, unspecified; I10 Essential (primary) hypertension; E11.51 Type 2 diabetes mellitus with diabetic peripheral angiopathy without gangrene; F41.9 Anxiety disorder, unspecified; F20.9 Schizophrenia, unspecified; F32.A Depression, unspecified; I48.0 Paroxysmal atrial fibrillation; E87.8 Other disorders of electrolyte and fluid balance, not elsewhere classified; E86.0 Dehydration; G47.33 Obstructive sleep apnea (adult) (pediatric); Z66 Do not resuscitate; Z79.899 Other long term (current) drug therapy; Z79.890 Hormone replacement therapy; Z79.01 Long term (current) use of anticoagulants
CPT/HCPCS: 36415; 36600; 71045; 80053; 82550; 82803; 83605; 83615; 83735; 83880; 84145; 84484; 85025; 85027; 85379; 85384; 85610; 86140; 87040; 87426; 87449; 87633; 93005; 94003; 94640; 94660; 94667; 94668; 97110; 97162; 97166; 97530; 99251; 99285; J7030; J7040; J7050; A4216; G0463